=== PATIENT | male | born 1960 | race Caucasian/White ===

== ENCOUNTER 2021-08-19 06:37 | Outpatient (REF) | payer BC, SELFPAY ==
[2021-08-19 11:11] LABS: MANUAL DIFF FLAG NO
[2021-08-19 11:19] LABS: Basophils Percent Auto 0.6 % (0-2); Eosinophils Absolute Auto 0.2 X10*3/uL (0.0-0.4); Eosinophils Percent Auto 2.9 % (0-4); Hematocrit 49.2 % (42-52); Hemoglobin 16.7 g/dl (14.0-18.0); Imm Gran Abs Auto 0.02 X10*3/uL (0.00-0.03); Imm Gran Pct Auto 0.3 % (0.0-0.4); Lymphocytes Absolute Auto 1.7 X10*3/uL (1.2-4.9); Lymphocytes Percent Auto 24.8 % (20-40); Mean Corpuscular HGB Conc 33.9 g/dl (31.0-36.0); Mean Corpuscular Hemoglobin 32.8 pg (27.0-33.0); Mean Corpuscular Volume 96.7 fL (80-98); Mean Platelet Volume 8.9 fL (9.4-12.4); Monocytes Absolute Auto 0.5 X10*3/uL (0.1-1.2); Neutrophils Absolute Auto 4.2 X10*3/uL (2.0-8.3); Neutrophils Percent Auto 63.4 % (45-73); Platelet Count 279 X10*3/uL (160-400); Red Blood Count 5.09 X10*6/uL (4.60-5.80); Red Cell Distribution Width 12.9 % (11.0-16.0); White Blood Count 6.7 X10*3/uL (4.8-10.8)
[2021-08-19 11:30] LABS: Alanine Aminotransferase 20 U/L (0-40); Albumin Level 4.4 g/dL (3.5-5.0); Alkaline Phosphatase 49 U/L (39-117); Anion Gap 12 (12-20); Aspartate Amino Transferase 17 U/L (5-37); Bilirubin Total 0.8 mg/dL (0.0-1.0); Blood Urea Nitrogen 12 mg/dL (9-16); Calcium 9.8 mg/dL (8.4-10.2); Carbon Dioxide 28 mmol/L (22-29); Chloride 105 mmol/L (96-108); Cholesterol 174 mg/dL; Estimated Glomerular Filt Rate > 60; Glucose Random 101 mg/dL (60-115); HDL Cholesterol 42 mg/dL; LDL Cholesterol Calculated 111 mg/dl; Sodium 141 mmol/L (135-145); Triglycerides 109 mg/dL
[2021-08-19 11:53] LABS: Free T4 (Free Thyroxine) 1.15 ng/dL (0.71-1.85); Prostate Specific Antigen Scr 0.75 ng/mL (<0.05-4.0); Thyroid Stimulating Hormone 0.67 uIU/mL (0.32-4.0)
[2021-08-21 09:07] LABS: Folate 16.7 ng/mL (> or = 4.0); Vitamin B12 757 pg/mL (200-900)
== END 2021-08-19 06:38 | disposition home or self-care (01) ==
LOC: HO.HMGCLDS 06:37
PROVIDERS: PCP Internal Medicine; Visit Provider Internal Medicine
DX: Z12.5 Encounter for screening for malignant neoplasm of prostate (principal); E78.00 Pure hypercholesterolemia, unspecified; K22.70 Barrett's esophagus without dysplasia
CPT/HCPCS: 36415; 80053; 80061; 82607; 82746; 84153; 84439; 84443; 85025

== ENCOUNTER 2021-12-25 15:26 | Outpatient (REF) | payer BC, SELFPAY ==
--- NOTE | ~2021-12-25 | US_ITS ---
EXAMINATION: US RETROPERITONEAL COMPLETE (RENAL) CLINICAL INFORMATION: Hematuria, unspecified. COMPARISON: CT chest screening 02/10/2018. CT abdomen with contrast 12/21/2011. TECHNIQUE: Real-time imaging of the kidneys and bladder. FINDINGS: RIGHT KIDNEY: 12.1 x 7.8 x 6.2 cm (SAG x AP x TRV). The kidney is normal in size, contour, and echogenicity. Renal cortical thickness is normal. No renal calculi or hydronephrosis. There is anechoic cyst mid pole/lower pole measuring 3.7 x 4.7 x 5.9 cm. LEFT KIDNEY: 12.9 x 5.5 x 4.7 cm (SAG x AP x TRV). The kidney is normal in size, contour, and echogenicity. Renal cortical thickness is normal. No renal calculi or hydronephrosis. There is anechoic cyst in lower pole measuring 2.3 x 1.8 x 1.6 cm. BLADDER: Well distended and normal. Bilateral ureteral jets are demonstrated. Prevoid bladder volume is 135 mL. There is no postvoid residual. ADDITIONAL FINDINGS: The prostate is enlarged with a volume of 33.6 mL. US/US retroperitoneal comp IMPRESSION: Bilateral renal cysts. No echogenic renal calculi or hydronephrosis. The bladder is unremarkable with normal bilateral ureteral jets seen.
== END 2021-12-25 15:27 | disposition home or self-care (01) ==
LOC: HO.HMGCX 15:26
PROVIDERS: PCP Internal Medicine; Visit Provider Internal Medicine
DX: R31.9 Hematuria, unspecified (principal)
CPT/HCPCS: 76770

== ENCOUNTER 2022-10-29 07:55 | Outpatient (REF) | payer OTHER, SELFPAY ==
[2022-10-29 11:24] LABS: MANUAL DIFF FLAG NO
[2022-10-29 11:28] LABS: Urine Cytology See Pathology rpt
[2022-10-29 11:37] LABS: Appearance Urine Clear; Color Urine Yellow; Glucose Urine UA Negative (Negative); Leukocyte Esterase Urine Negative (Negative); Nitrite Urine Negative (Negative); PH 6.5 (5.0-9.0); Urine Blood Trace (Negative); Urine Ketones Negative (Negative); Urine Protein Negative (Neg-Trace)
[2022-10-29 11:38] LABS: Basophils Absolute Auto 0.1 X10*3/uL (0.0-0.2); Basophils Percent Auto 0.7 % (0-2); Eosinophils Absolute Auto 0.3 X10*3/uL (0.0-0.4); Eosinophils Percent Auto 3.6 % (0-4); Hemoglobin 15.9 g/dl (14.0-18.0); Imm Gran Abs Auto 0.04 X10*3/uL (0.00-0.03); Imm Gran Pct Auto 0.5 % (0.0-0.4); Lymphocytes Absolute Auto 2.1 X10*3/uL (1.2-4.9); Lymphocytes Percent Auto 28.2 % (20-40); Mean Corpuscular HGB Conc 33.8 g/dl (31.0-36.0); Mean Corpuscular Hemoglobin 31.7 pg (27.0-33.0); Mean Corpuscular Volume 93.8 fL (80.0-98.0); Mean Platelet Volume 8.5 fL (9.4-12.4); Monocytes Absolute Auto 0.6 X10*3/uL (0.1-1.2); Monocytes Percent Auto 8.2 % (2-11); Neutrophils Absolute Auto 4.5 x10*3/uL (2.0-8.3); Neutrophils Percent Auto 58.8 % (45-73); Platelet Count 256 X10*3/uL (160-400); Red Blood Count 5.01 X10*6/uL (4.60-5.80); UMIC TRIGGER UA YES; White Blood Count 7.6 X10*3/uL (4.8-10.8)
[2022-10-29 11:41] LABS: Bacteria Urine None Seen (None Seen); Hyaline Casts Urine 0-2 /LPF (0-2); RBC Urine 0-2 /HPF (0-2); Squamous Epithelial Cell Urine 0-2 /HPF (0-2); WBC Urine 0-5 /HPF (0-5)
[2022-10-29 11:47] LABS: Estimated Average Glucose 105 mg/dL; Hemoglobin A1c % 5.3 %
[2022-10-29 12:09] LABS: Alanine Aminotransferase 34 U/L (0-40); Albumin Level 4.3 g/dL (3.5-5.0); Alkaline Phosphatase 51 U/L (39-117); Anion Gap 11 (12-20); Aspartate Amino Transferase 21 U/L (5-37); Bilirubin Total 0.6 mg/dL (0.0-1.0); Blood Urea Nitrogen 12 mg/dL (9-16); Calcium 9.6 mg/dL (8.4-10.2); Carbon Dioxide 29 mmol/L (22-29); Chloride 105 mmol/L (96-108); Cholesterol 215 mg/dL; Estimated Glomerular Filt Rate > 60; Free T4 (Free Thyroxine) 1.09 ng/dL (0.71-1.85); Glucose Random 93 mg/dL (60-115); HDL Cholesterol 42 mg/dL; LDL Cholesterol Calculated 142 mg/dl; Potassium 4.1 mmol/L (3.3-5.1); Prostate Specific Antigen Scr 1.32 ng/mL (<0.05-4.0); Sodium 141 mmol/L (135-145); Thyroid Stimulating Hormone 1.16 uIU/mL (0.32-4.0); Total Protein 7.1 g/dL (6.5-8.0); Triglycerides 157 mg/dL
[2022-10-29 12:37] LABS: Folate > 20.0 ng/mL (> or = 4.0); Vitamin B12 1003 pg/mL (200-900)
== END 2022-10-29 07:56 | disposition home or self-care (01) ==
LOC: HO.HMGCLDS 07:55
PROVIDERS: PCP Internal Medicine; Visit Provider Internal Medicine
DX: Z12.5 Encounter for screening for malignant neoplasm of prostate (principal); R73.02 Impaired glucose tolerance (oral); R31.9 Hematuria, unspecified; E78.00 Pure hypercholesterolemia, unspecified
CPT/HCPCS: 36415; 80053; 80061; 81001; 82607; 82746; 83036; 84153; 84439; 84443; 85025; 88112

== ENCOUNTER 2023-11-29 15:59 | Outpatient (AMB) | payer OTHER, SELFPAY ==
--- NOTE | 2023-11-29 16:00 | MHC.PC.OV ---
Vital Signs 11/29/23 16:01 Height 5 ft 11 in Weight 247 lb 0.6 oz BMI 34.5 BP 124/80 Blood Pressure Location Lt brachial Position Sitting Pulse 73 Pulse Source Pulse Oximeter Pulse Oximetry (%) 99 Oxygen Delivery Method Room Air Intake Visit Reasons: Annual PE Coil Wrapper Required: No Allergies No Known Allergies Allergy (Verified 11/29/23 16:06) Medication List - Last Reconciled 11/29/23 by Parish Son MD cholecalciferol (vitamin D3) 50 mcg PO DAILY cyanocobalamin (vitamin B-12) 1,000 mcg PO DAILY folic acid 1 mg PO DAILY omeprazole 40 mg PO BID simvastatin 10 mg PO BEDTIME 90 days Tobacco use date assessed: 11/29/23 Dental Screening Dental Screen Date: 11/29/23 Did you have a dental visit in the last 12 months?: No Did you have a dental problem in the last 6 months where you did not have access to dental care?: No HPI Annual PE HPI Details 63-year-old obese male smoker with a history of obstructive sleep apnea hypercholesterolemia Barretts esophagus coming in for physical exam last seen in May 2022. Patient's colonoscopy is due this year March 2019 last 1. [facility] Medical History (Updated 11/29/23 @ 16:37 by Parish Son MD) Impaired glucose tolerance Compression fracture of T6 vertebra Pulmonary nodule GERD (gastroesophageal reflux disease) Cervical compression fracture Lumbar disc herniation Obstructive sleep apnea Obesity (BMI 30-39.9) Hypercholesterolemia Vitamin D deficiency Tobacco abuse Tubular adenoma of colon Conley's esophagus Renal calculi Surgical History (Updated 11/29/23 @ 16:37 by Parish Son MD) H/O knee surgery Ventral hernia Social History (Updated 11/29/23 @ 16:37 by Parish Son MD) Housing: House Alcohol intake: current Comment: once a month 2-3beers Patient Tobacco Use Status: Current everyday Tobacco user Tobacco use type: Cigarette Cigarette Packs Per Day: 1 Years Smoked: smoking 15 years old e-Cigarette/Vaping Use: Never Used Second Hand Smoke Exposure: No Current occupational status: employed Cognitive needs: No Hearing needs: No Vision needs: Yes Questionnaire PHQ-9 Over the last 2 weeks, how often have you been bothered by any of the following problems? 1. Little interest or pleasure in doing things: not at all 2. Feeling down, depressed, or hopeless: several days 3. Trouble falling or staying asleep, or sleeping too much: not at all 4. Feeling tired or having little energy: not at all 5. Poor appetite or overeating: not at all 6. Feeling bad about yourself - or that you are a failure or have let yourself or your family down: not at all 7. Trouble concentrating on things, such as reading the newspaper or watching television: not at all 8. Moving or speaking so slowly that other people could have noticed. Or the opposite - being so fidgety or restless that you have been moving around a lot more than usual: not at all 9. Thoughts that you would be better off or of hurting yourself in some way: not at all Total score: 1 Depression Screening Interpretation: Negative Depression Screening Done: Yes Source: Developed by Drs. Mj Hansen, Eliane Santos, Paramjit Winston and colleagues, with an educational danielle from [employer]. Thrive Questionnaire Date Thrive assessed: 11/29/23 I am a: Patient What is your living situation today?: I have a steady place to live Within the past 12 months, did the food you bought not last and you didn't have the money to get more?: Never true Within the past 12 months, did you worry whether your food would run out before you got money to buy more?: Never true Do you have trouble paying for medicines?: No Do you have trouble getting transportation to medical appointments?: No Do you have trouble paying your heating and electricity bill?: No Do you have trouble taking care of your child, family member or friend?: No Do you have trouble with day-to-day activities such as bathing, preparing meals, shopping, managing finances, etc.?: No Are you currently unemployed and looking for a job?: No Are you interested in more education?: No AUDIT C Alcohol Use Questionnaire (AUDIT-C) 1. How often do you have a drink containing alcohol?: Monthly or less 2. How many drinks containing alcohol do you have on a typical day when you are drinking?: 1 or 2 3. How often do you have six or more drinks on one occasion?: Never Total Score: 1 JAZ-7 AMB Questionnaire JAZ-7 Date JAZ - 7 assessed: 11/29/23 Feeling nervous, anxious, or on edge: 1 = Several days Not being able to stop or control worryin = Several days Worrying too much about different things: 0 = Not at all Trouble relaxin = Not at all Being so restless that it is hard to sit still: 0 = Not at all Becoming easily annoyed or irritable: 0 = Not at all Feeling afraid as if something awful might happen: 0 = Not at all Total JAZ-7 score (0-4 normal; 5-9 mild; 10-14 moderate; 15-21 severe): 2 Source: Developed by Drs. Mj Hansen, Eliane Santos, Paramjit Winston and colleagues, with an educational danielle from [employer]. Review of Systems Const Denies poor appetite and Denies weakness Eyes Denies no additional complaints ENT Reports Normal hearing present, Denies dizziness, Denies nasal congestion, Denies tinnitus and Denies sore throat Card Denies chest pain, Denies syncope, Denies rapid heart rate and Denies dyspnea Resp Denies cough and Denies dyspnea GI Denies change in stool character, Reports constipation, Denies diarrhea, Denies nausea and Denies vomiting Denies dysuria and Denies urinary frequency Neuro Reports Normal hearing present, Denies confusion, Denies dizziness, Denies syncope and Denies weakness Psych Denies confusion Physical exam (Primary Care) Vital Signs: Last Vital Signs Pulse 73 11/29/23 16:01 BP 124/80 11/29/23 16:01 Pulse Ox 99 11/29/23 16:01 Oxygen Delivery Method Room Air 11/29/23 16:01 BMI result Body Mass Index 34.5 Tobacco/Smoking Status: Tobacco use Status Tobacco use date assessed 11/29/23 11/29/23 16:02 Patient Tobacco Use Status Current everyday Tobacco 11/29/23 16:37 Tobacco use type Cigarette 11/29/23 16:37 e-Cigarette/Vaping Use Never Used 11/29/23 16:37 PHQ-9: PHQ-9 Score PHQ-9: Total score 1 11/29/23 16:31 Depression Screening Interpretation: Negative Thrive Assessment: Date of Thrive Assessment Date Thrive assessed 11/29/23 11/29/23 16:02 Const General: No confusion Orientation/consciousness: No confusion HENMT Head: Yes normocephalic Ears: external ears normal and TM's normal bilaterally Face and sinus: Yes normal facial exam Mouth: moist mucous membranes Throat: Yes tonsils normal Eyes Conjunctivae: conjunctivae normal Pupils: Equal, round and reactive pupils present and Pupil accommodation reflex normal Direct Ophthalmoscopy: normal light reflex Neck Neck: No lymphadenopathy Thyroid: Thyroid normal Chest Chest palpation & inspection: normal inspection of the chest Resp Effort & Inspection: normal respiratory effort and no audible wheezes Auscultation: clear to auscultation bilaterally, no crackles, no wheezes and lung sounds not diminished Cardio Rate: regular rate Rhythm: regular rhythm Peripheral pulses: radial pulses present and dorsalis pedis present GI Other: colon test this year Palpation (GI): no masses Auscultation: normal bowel sounds and normoactive bowel sounds Rectal Exam - Male: Yes deferred Other: decline Skin General skin exam: no rashes or lesions noted Rashes: no rashes Neuro General: No confusion Cranial nerves: Yes Equal, round and reactive pupils present and Yes Normal hearing present Cognition (Neuro): normal cognition Gait exam (Neuro): Normal gait present Motor exam (neuro): 5/5 motor strength present throughout Deep tendon reflexes (DTR's): Right brachioradialis reflex intensity grade: 2+, Left brachioradialis reflex intensity grade: 2+, Right patellar reflex intensity grade: 2+ and Left patellar reflex intensity grade: 2+ Extrem General: No edema Office Procedures Flu Questionnaire Does the patient have a severe egg allergy?: No Does the patient have severe life threatening allergies?: No Does the patient have a fever or illness today?: No Has the patient ever had Guillain-[place] Syndrome?: No Has the patient ever had any past reaction to a flu shot?: No Immunizations flu vacc [id number] 6mos up(PF) 60 mcg(15 mcgx4)/0.5 mL IM syringe Performing Provider: Parish Son MD Performing Location: [facility] Administered by: BOONE Steward on 11/29/23 16:58 Dose Route Admin Location Dispensed Lot Number Expiration Date NDC Sewer Inspector 0.5 mL IM Left Deltoid 0.5 mL [id number] 05/24/24 [id number] Yext VIS Given Date VIS Provided VIS Publication Date 11/29/23 Single Vaccine 21 Eligibility Eligibility Date Funding Source Not [facility] Eligible 11/29/23 Private Assessment and Plan Assessment & Plan (1) Annual physical exam: Code(s): Z00.00 - Encounter for general adult medical examination without abnormal findings (2) Obesity (BMI 30-39.9): Code(s): E66.9 - Obesity, unspecified Plan: Diet and exercise (3) Tobacco abuse: Code(s): Z72.0 - Tobacco use Plan: Strongly advised to stop smoking! (4) Conley's esophagus: Code(s): K22.70 - Conley's esophagus without dysplasia Qualifiers: Conley's esophagus type: without dysplasia Qualified Code(s): K22.70 - Conley's esophagus without dysplasia Plan: Advised to eat healthy,Avoid the foods that causes that usually spicy foods, tomato products, juices, coffee, soda and foods that your sensitive to. After eating do not lie down, allow 3-4 hours before in lie down. And keep the head of bed above 30 degrees to avoid the acid from going up. (5) Hypercholesterolemia: Code(s): E78.00 - Pure hypercholesterolemia, unspecified Plan: Avoid fried foods, chicken skin, eggs, butter margarine, pastries and meat. Be it pork or beef they have a lot of cholesterol LDL goal of less than 130 and triglyceride of less than 150. Patient on simvastatin 10 mg at bedtime (6) Impaired glucose tolerance: Code(s): R73.02 - Impaired glucose tolerance (oral) Plan: Decrease the amount of carbohydrate intake, pasta, bread, rice and potatoes are all sugar and that is aside from all the sweet stuff, remember that fruits are good but they are Sweet also. (7) Colon cancer screening: Comment: Two thousand nineteen 5 years Code(s): Z12.11 - Encounter for screening for malignant neoplasm of colon Plan: Patient is reminded about the colonoscopy. Orders: Orders Complete Blood Count Auto Diff Today E78.00 - Pure hypercholesterolemia, unspecified Thyroid Stimulating Hormone Today E78.00 - Pure hypercholesterolemia, unspecified Lipid Panel Today E78.00 - Pure hypercholesterolemia, unspecified Hemoglobin A1c Today R73.02 - Impaired glucose tolerance (oral) Comprehensive Met. Panel Today E78.00 - Pure hypercholesterolemia, unspecified Free T4 (Free Thyroxine) Today E78.00 - Pure hypercholesterolemia, unspecified Prostate Specific Antigen Scr Today E78.00 - Pure hypercholesterolemia, unspecified Vitamin B12 and Folate Today E78.00 - Pure hypercholesterolemia, unspecified Influenza [id number] Immunization Today Z23 - Encounter for immunization Referrals Thoracic Surgery Referral Z72.0 - Tobacco use Medications: New omeprazole 40 mg PO BID 180 caps 3RF K22.70 - Conley's esophagus without dysplasia Coding Level of Care Code Est Pt Prev Care 40-64y([id number]) Diagnoses Annual physical exam Z00.00 Obesity (BMI 30-39.9) E66.9 Tobacco abuse Z72.0 Conley's esophagus without dysplasia K22.70 Conley's esophagus type: without dysplasia Hypercholesterolemia E78.00 Impaired glucose tolerance R73.02 Colon cancer screening Z12.11
[2023-11-29 16:01] VITALS: BP 124/80; PULSE 73; O2SAT 99; BMI 34.5
== END 2023-11-29 17:02 | disposition home or self-care (01) ==
LOC: HO.HMGH 15:59
PROVIDERS: PCP Internal Medicine; Visit Provider Internal Medicine
DX: Z00.00 Encounter for general adult medical examination without abnormal findings (principal); E66.9 Obesity, unspecified; Z68.34 Body mass index [BMI] 34.0-34.9, adult; Z23 Encounter for immunization; Z72.0 Tobacco use; K22.70 Barrett's esophagus without dysplasia; E78.00 Pure hypercholesterolemia, unspecified; R73.02 Impaired glucose tolerance (oral); Z12.11 Encounter for screening for malignant neoplasm of colon
CPT/HCPCS: 90471; 90686; 99396

== ENCOUNTER 2024-01-31 08:49 | Outpatient (REF) | payer OTHER, SELFPAY ==
--- NOTE | ~2024-01-31 | CT_ITS ---
EXAMINATION: CT CHEST SCREENING CLINICAL INFORMATION: Nicotine dependence current smoker at 1 pack per day with 50 pack-year history. COMPARISON: CT chest 02/10/2018. TECHNIQUE: Multidetector volumetric CT imaging of the chest is performed without contrast using low-dose technique. Additional 2D coronal and sagittal reformatted images and axial 3D maximum intensity projection (MIP) images are generated on the CT workstation. This CT examination was performed using dose optimization techniques as appropriate, variously including the following: *Automated exposure control *Adjustment of mA and/or kV according to patient size (this includes techniques or standardized protocols for targeted exams where dose is matched to indication/reason for exam; i.e. extremities or head) *Use of iterative reconstruction technique DLP: 74 mGy-cm FINDINGS: LUNGS: Mild emphysematous changes are present in the lungs. The following pulmonary nodules are present, 2 of which have increased in size slightly: 6 mm right upper lobe nodule previously 4 mm on 02/10/2018 (5:134 compare prior 4:98) 2 mm left lower lobe lateral nodule unchanged (5:255 compare prior 4:215) 3 mm right middle lobe nodule previously 2 mm (5:310 compare prior 4:273) 5 mm left lower lobe nodule unchanged (5:353 compare prior 4:294) 3 mm right lower lobe subpleural nodule unchanged (5:368 compare prior 4:303) 2 mm right lower lobe nodule unchanged (5:389 compare prior 4:328) The lungs are otherwise clear with no evidence of inflammation or nodules. MEDIASTINUM: The mediastinum is normal. CORONARY ARTERY CALCIFICATION: Moderate. PLEURA: There is no pleural effusion. No pleural mass or thickening. AXILLA: No lymphadenopathy. UPPER ABDOMEN: Unremarkable OSSEOUS STRUCTURES: Unremarkable. CT/CT lung screening IMPRESSION: Pulmonary nodules, the largest of which is increased in size from 4 to 6 mm since 02/10/2018 over the prior 6 years. I suspect that this is benign but based upon lung RADS criteria, as this is less than 8 mm but growing (although over a 6 year period), short-interval followup is recommended. ASSESSMENT: Lung-RADS category 4A: Suspicious RECOMMENDATION: Short-interval 3-month follow-up low-dose CT chest.
== END 2024-01-31 08:50 | disposition home or self-care (01) ==
LOC: HO.CT 08:49
PROVIDERS: PCP Internal Medicine; Visit Provider Nurse Practitioner Family
DX: Z12.2 Encounter for screening for malignant neoplasm of respiratory organs (principal); F17.210 Nicotine dependence, cigarettes, uncomplicated
CPT/HCPCS: 71271; G0296

== ENCOUNTER 2024-01-31 08:54 | Outpatient (AMB) | payer OTHER, SELFPAY ==
--- NOTE | 2024-01-31 09:03 | A.OFFVIS_ITS ---
Intake Intake Visit Reasons: LDCT SD Allergies No Known Allergies Allergy (Verified 11/29/23 16:06) HPI HPI Comments History of Present Illness Details Samy is a pleasant 64 year old male, current 1ppd smoker with a 65 PYH. Patient has been smoking since age 15 for 49 years at [facility]. Denies marijuana use. 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 Admits second hand smoke exposure. Denies known family history of lung cancer. Denies personal history of cancers. Denies chest CT in last year. Prior screener 2018 RADS 2 with multiple bilateral pulmonary nodules, <5mm. Denies recent travel outside the [place]. Denies testing positive for COVID. Admits receiving COVID Vaccine x 2. Denies fever, chills, chest pain, new cough, hemoptysis or unintentional weight loss. Lung Cancer Screening Questionnaire reviewed with patient by provider. Shared Decision Making Completed. Discussed in detail with patient, the risk versus benefit of LDCT screening. Patient in agreement of proceeding with scan. [facility] Medical History (Updated 01/07/24 @ 13:22 by Milvia Scott NP) Impaired glucose tolerance Compression fracture of T6 vertebra Pulmonary nodule GERD (gastroesophageal reflux disease) Cervical compression fracture Lumbar disc herniation Obstructive sleep apnea Obesity (BMI 30-39.9) Hypercholesterolemia Vitamin D deficiency Tobacco abuse Tubular adenoma of colon Conley's esophagus Renal calculi Surgical History (Updated 11/29/23 @ 16:37 by Parish Son MD) H/O knee surgery Ventral hernia Social History (Updated 11/29/23 @ 16:37 by Parish Son MD) Housing: House Alcohol intake: current Comment: once a month 2-3beers Patient Tobacco Use Status: Current everyday Tobacco user Tobacco use type: Cigarette Cigarette Packs Per Day: 1 Years Smoked: smoking 15 years old e-Cigarette/Vaping Use: Never Used Second Hand Smoke Exposure: No Current occupational status: employed Cognitive needs: No Hearing needs: No Vision needs: Yes Assessment & Plan Assessment & Plan (1) Nicotine dependence, cigarettes, uncomplicated: Code(s): F17.210 - Nicotine dependence, cigarettes, uncomplicated Plan Shared decision-making visit completed today in office. This patient meets criteria for LDCT for lung cancer screening purposes and is asymptomatic. Offered smoking cessation. Patient has been scheduled for a low dose chest CT for screening purposes at [facility]. We discussed how the results will be obtained depending on CT findings. RADS 1 and RADS 2 will receive a letter with results and will follow up for annual LDCT. Patient informed they will be contacted at later date to schedule upcoming LDCT scan. RADS 3 and RADS 4 will receive a telephone call, or an office visit after reviewing case at our Lung Cancer Conference to determine when the next LDCT will be scheduled or further interventions that may be needed. Discussed importance of screening program and compliance with yearly LDCT scan as scheduled. Risks, benefits, and alternatives were discussed in detail and patient agrees to proceed. Risks discussed include but are not limited to: radiation exposure and possibility of additional intervention for benign disease. Benefits include detection of lung cancer at an early stage. A copy of today's visit and LDCT results will be sent to patient's PCP. Incidental findings on LDCT are PCP's responsibility. If there are incidental findings, our office will ensure that PCP office is aware of these findings. All questions were answered and patient is in agreement of plan. Coding Level of Care Code Lung Cancer Screening G0296 Diagnoses Nicotine dependence, cigarettes, uncomplicated F17.210
== END 2024-01-31 09:23 | disposition home or self-care (01) ==
PROVIDERS: PCP Internal Medicine; Visit Provider Nurse Practitioner Family
DX: F17.210 Nicotine dependence, cigarettes, uncomplicated (principal)
CPT/HCPCS: G0296

== ENCOUNTER 2024-10-07 09:20 | Day surgery (SDC) | payer OTHER, SELFPAY ==
[2024-10-05 10:12] VITALS: BMI 34.9
--- NOTE | 2024-10-06 09:26 | HO.ANESPROP2 ---
Documented by User: Tran Borrero NP 10/06/24 09:26 HPI - Anesthesia Eval Consult details Narrative: 64yo M for Upper Endoscopy and Colonoscopy [facility] Active Problems Active Problems: All Active Problems Multiple pulmonary nodules (Acute) Hematuria (Acute) Hypercholesterolemia (Acute) Impaired glucose tolerance (Acute) Obstructive sleep apnea (Acute) Nicotine dependence, cigarettes, uncomplicated (Acute) Conley's esophagus (Acute) GERD (gastroesophageal reflux disease) (Acute) Tubular adenoma of colon (Acute) Obesity (BMI 30-39.9) (Acute) Past Medical History Medical History (Updated 10/07/24 @ 10:26 by Kanchan Mark, EBONY) Nicotine dependence, cigarettes, uncomplicated Impaired glucose tolerance Compression fracture of T6 vertebra Pulmonary nodule GERD (gastroesophageal reflux disease) Cervical compression fracture Lumbar disc herniation Obstructive sleep apnea Obesity (BMI 30-39.9) Hypercholesterolemia Vitamin D deficiency Tubular adenoma of colon Conley's esophagus Renal calculi Surgical History Surgical History (Updated 06/15/24 @ 16:10 by Ev Farias PA-C) History of right knee surgery History of esophagogastroduodenoscopy (EGD) History of colonoscopy History of ventral hernia repair Social History Social History (Updated 11/29/23 @ 16:37 by Parish Son MD) Housing: House Alcohol intake: current Comment: once a month 2-3beers Patient Tobacco Use Status: Current everyday Tobacco user Tobacco use type: Cigarette Cigarette Packs Per Day: 1 Cigarettes Per Day: 20.0 Years Smoked: smoking 15 years old e-Cigarette/Vaping Use: Never Used Second Hand Smoke Exposure: No Use of substances other than those prescribed or required for medical reasons: No Are you DNR?: No Advance Directives: No Advance Directives Information Provided: Yes Recently lost weight without trying: No Current occupational status: employed Cognitive needs: No Hearing needs: No Vision needs: Yes Meds Allergies Allergy/AdvReac Type Severity Reaction Status Date / Time No Known Allergies Allergy Verified 10/07/24 10:27 Home Medications ?Medication ?Instructions ?Recorded ?Confirmed ?Last Taken ?Type cholecalciferol (vitamin D3) 50 50 mcg PO DAILY 11/07/20 10/05/24 Unknown History mcg (2,000 unit) capsule cyanocobalamin (vitamin B-12) 1,000 mcg PO DAILY 11/07/20 10/05/24 Unknown History 1,000 mcg capsule folic acid 1 mg tablet 1 mg PO DAILY 11/07/20 10/05/24 Unknown History Probiotic PO DAILY 10/07/24 Unknown History Exam Height,Weight and Vital Signs: Height 5 ft 11 in Weight 113.398 kg Assessment and Plan Assessment Anesthesia Assessment: Chart Reviewed Documented by User: Emily Almodovar MD 10/07/24 10:41 [facility] Past Medical History Medical History (Updated 10/07/24 @ 10:26 by Kanchan Mark RN) Nicotine dependence, cigarettes, uncomplicated Impaired glucose tolerance Compression fracture of T6 vertebra Pulmonary nodule GERD (gastroesophageal reflux disease) Cervical compression fracture Lumbar disc herniation Obstructive sleep apnea Obesity (BMI 30-39.9) Hypercholesterolemia Vitamin D deficiency Tubular adenoma of colon Conley's esophagus Renal calculi Family History Family history of problems with anesthesia: No Surgical History Surgical History (Updated 06/15/24 @ 16:10 by Ev Farias PA-C) History of right knee surgery History of esophagogastroduodenoscopy (EGD) History of colonoscopy History of ventral hernia repair History of Problems with Anesthesia: No Social History Social History (Updated 11/29/23 @ 16:37 by Parish Son MD) Housing: House Alcohol intake: current Comment: once a month 2-3beers Patient Tobacco Use Status: Current everyday Tobacco user Tobacco use type: Cigarette Cigarette Packs Per Day: 1 Cigarettes Per Day: 20.0 Years Smoked: smoking 15 years old e-Cigarette/Vaping Use: Never Used Second Hand Smoke Exposure: No Use of substances other than those prescribed or required for medical reasons: No Are you DNR?: No Advance Directives: No Advance Directives Information Provided: Yes Recently lost weight without trying: No Current occupational status: employed Cognitive needs: No Hearing needs: No Vision needs: Yes Meds Allergies Allergy/AdvReac Type Severity Reaction Status Date / Time No Known Allergies Allergy Verified 10/07/24 10:27 Home Medications ?Medication ?Instructions ?Recorded ?Confirmed ?Last Taken ?Type cholecalciferol (vitamin D3) 50 50 mcg PO DAILY 11/07/20 10/05/24 Unknown History mcg (2,000 unit) capsule cyanocobalamin (vitamin B-12) 1,000 mcg PO DAILY 11/07/20 10/05/24 Unknown History 1,000 mcg capsule folic acid 1 mg tablet 1 mg PO DAILY 11/07/20 10/05/24 Unknown History Probiotic PO DAILY 10/07/24 Unknown History Exam Airway Mallampati Class: II TM Dist: >3cm Neck ROM: Full Denture: Upper Heart: rrr Lungs: cta Assessment and Plan Assessment Anesthesia Assessment: Anesthesia Plan Discussed Final Anesthetic Review Family History of Problems with Anesthesia: No History of Problems with Anesthesia: No NPO: Yes ASA Class: II Final Preanesthetic Review: No Changes in Pt Med Stat, Meds/Allgs Chart Reviewed and Consent Obtained/Reviewed Patient Risk: Low Procedure Risk: Intermediate Anesthetic Plan Anesthetic Plan: MAC: Disposition: Standard PACU
[2024-10-07 10:29] VITALS: BMI 33.7
[2024-10-07 10:35] VITALS: BP 144/91; PULSE 75; RESP 16; TEMP 36.7; O2SAT 95
[2024-10-07] MEDS: Lactated Ringers 1,000 ML 100 ML IVCONT (10:42)
[2024-10-07 12:17] VITALS: BP 123/69; PULSE 67; RESP 16; TEMP 36.6; O2SAT 98
--- NOTE | 2024-10-07 12:26 | PM.OP ---
Brief Operative Note Date of Service: 10/07/24 Pre-op diagnosis: Conley's, screening Post-op diagnosis: other (Hiatal hernia, Conley's, Colon polyp) Procedure: EGD with biopsies, Colonoscopy to the cecum and TI with hot snare polypectomy and placement of 2 Ultra Resolution clips Surgeon: Mj Mendoza MD Anesthesia: MAC Was an [employer] Ic Layout Designer used for this Procedure?: No Estimated blood loss (mL): 2.0 Pathology: other (A. Polyp at 30cm B. Esophagus 34-35cm) Condition: stable Disposition: PACU
[2024-10-07 12:32] VITALS: BP 127/61; PULSE 63; RESP 20; TEMP 36.4; O2SAT 97
--- NOTE | 2024-10-07 13:07 | OP_ITS ---
DATE OF SERVICE: 10/07/2024 SURGEON: Mj Mendoza MD INDICATIONS: The patient presents for followup of colorectal cancer screening, personal history of tubular adenomas of the colon, history of gastroesophageal reflux, and Conley esophagus. Full consent has been obtained from him for this, including risks of bleeding and perforation. PREOPERATIVE DIAGNOSIS: POSTOPERATIVE DIAGNOSIS: PROCEDURE PERFORMED: Colonoscopy to the cecum with hot snare polypectomy and placement of 2 ultra resolution clips, and esophagogastroduodenoscopy with biopsies. ESTIMATED BLOOD LOSS: COMPLICATIONS: ANESTHESIA: Monitored anesthesia care. ASSISTANTS: SPECIMENS: PREOPERATIVE DIAGNOSES: Colorectal cancer screening, personal history of tubular adenomas of the colon, gastroesophageal reflux, and Ocnley esophagus. POSTOPERATIVE DIAGNOSES: Colorectal cancer screening, personal history of tubular adenomas of the colon, gastroesophageal reflux, and Conley esophagus, colon polyp, diverticulosis, internal hemorrhoids, large hiatal hernia, gastroesophageal reflux, Conley esophagus. DESCRIPTION OF PROCEDURE: The patient was placed in the left lateral decubitus position. The digital rectal exam revealed no abnormalities. The [employer] video pediatric colonoscope was entered into the rectum advanced easily to the cecum. Once in the cecum, I did identify normal-appearing cecal pouch with appendiceal orifice and a normal-appearing ileocecal valve. The entire cecum and ileocecal valve appeared normal. The terminal ileum was cannulated and appeared normal. Scope was withdrawn back in the colon. The entire cecum and ileocecal valve appeared normal. The scope was slowly withdrawn assessing all mucosal surfaces carefully. Preparation was excellent. There was a mild amount of diverticulosis in the ascending colon. There was a moderate amount of diverticulosis in the sigmoid colon. At 30 cm was a large, approximately 1.5 cm polyp on a short stalk, which was removed by hot snare polypectomy. The polypectomy site had some initial oozing, which was treated with the tip of the snare with cauterization and good hemostasis. At that point, the polyp was retrieved with a retrieval net and brought out of the patient. The scope was then reinserted back into the rectum and to the polypectomy site. This appeared clean, without any sign of residual polyp nor bleeding. I did place 1 ultra resolution clip, which deployed well on just a portion of the polypectomy site with good deployment and good hemostasis. I then placed a 2nd ultra resolution clip onto the entire polypectomy site with good deployment and good hemostasis. The scope was then withdrawn, and the remainder of the colon was carefully inspected and no further polyps were noted. There was no evidence of any colitis nor angiodysplasia. In the rectum, scope was retroflexed visualizing internal hemorrhoids, but no other pathology. The scope was straightened and withdrawn from the patient. He was turned around for the upper endoscopy. The Olympus video gastroscope was passed in the posterior oropharynx and upper esophagus under direct vision. The scope was passed slowly into the distal esophagus. The gastroesophageal junction appeared at 35 cm. Extending from this to 34 cm were areas of some Cnoley's mucosa as well as some friability and edema. There was no ulceration, mass, nor stricture. The scope entered the stomach there was a large hiatal hernia. There were some benign hyperplastic appearing gastric polyps within the hiatal hernia. The scope was advanced to the pylorus, and the duodenum was cannulated to the descending portion. The duodenum including the bulb appeared normal without mass or ulceration. The scope was withdrawn back in the stomach. The gastric antrum and body appeared normal with good peristalsis. The scope was retroflexed visualizing the proximal stomach carefully, which appeared normal, without any mass or ulceration. The scope was straightened and withdrawn back to the esophagus. Multiple biopsies were obtained between 34 and 35 cm. Proximal to 34 cm, the esophageal mucosa appeared normal. The scope was withdrawn from the patient. He tolerated both procedures well and was returned to the recovery area in stable condition. IMPRESSION: 1. Large colon polyp, status post hot snare polypectomy with placement of 2 ultra resolution clips. 2. Diverticulosis. 3. Internal hemorrhoids. 4. Large hiatal hernia with associated reflux and Conley esophagus. PLAN: The results of the biopsies will be checked. If the polyp does not show any worrisome changes of high-grade dysplasia or carcinoma, I would then recommend a repeat colonoscopy in 3 years. If the Conley esophagus does not show any dysplasia, I would recommend a repeat upper endoscopy in 3 years as well. He was advised not to use any aspirin nor NSAIDs for 2 weeks. He will continue omeprazole but I shall send a prescription to change his omeprazole from 20 mg to 40 mg daily. He will be seen for a followup office visit as well. MD ERIS Gallardo/FOREST / [phone]
== END 2024-10-07 13:06 | disposition home or self-care (01) ==
PROVIDERS: PCP Internal Medicine; Visit Provider Internal Medicine
PROC: (CPT 45385; principal; 2024-10-07 11:00)
DX: Z12.11 Encounter for screening for malignant neoplasm of colon (principal); Z86.0101 Personal history of adenomatous and serrated colon polyps; D12.5 Benign neoplasm of sigmoid colon; K57.30 Diverticulosis of large intestine without perforation or abscess without bleeding; K64.8 Other hemorrhoids; K21.9 Gastro-esophageal reflux disease without esophagitis; K22.70 Barrett's esophagus without dysplasia; K31.7 Polyp of stomach and duodenum; K44.9 Diaphragmatic hernia without obstruction or gangrene; E78.5 Hyperlipidemia, unspecified; G47.33 Obstructive sleep apnea (adult) (pediatric); Z79.899 Other long term (current) drug therapy; Z98.890 Other specified postprocedural states; F17.210 Nicotine dependence, cigarettes, uncomplicated
CPT/HCPCS: 45385; 43239; 88305; J1100; J1596; J2003; J2704

== ENCOUNTER 2024-11-30 15:21 | Outpatient (AMB) | payer OTHER, SELFPAY ==
[2024-11-30 16:18] VITALS: BP 132/78; PULSE 75; O2SAT 96; BMI 36.6
--- NOTE | 2024-11-30 16:18 | A.OFFPC_ITS ---
Vital Signs 11/30/24 16:18 Height 5 ft 9 in Weight 248 lb BMI 36.6 BP 132/78 Blood Pressure Location Lt brachial Position Sitting Pulse 75 Pulse Source Pulse Oximeter Pulse Oximetry (%) 96 Oxygen Delivery Method Room Air Intake Visit Reasons: PE Allergies No Known Allergies Allergy (Verified 11/30/24 16:19) Medication List - Last Reconciled 11/30/24 by Parish Son MD cholecalciferol (vitamin D3) 50 mcg PO DAILY cyanocobalamin (vitamin B-12) 1,000 mcg PO DAILY folic acid 1 mg PO DAILY omeprazole 40 mg PO BID [Probiotic PO DAILY] simvastatin 10 mg PO BEDTIME 90 days Tobacco use date assessed: 11/30/24 Fall risk assessment: No Falls in past year Last assessed Fall Risk: 11/30/24 Dental Screening Dental Screen Date: 11/30/24 Did you have a dental visit in the last 12 months?: No Did you have a dental problem in the last 6 months where you did not have access to dental care?: No Was dental information given to patient?: Patient has dentist HPI PE HPI Details The patient is a 64-year-old male presenting with follow-up concerns regarding hypertension and tubular adenoma, as well as evaluation of chronic knee pain. The patient?s hypertension has been well-controlled. During a colonoscopy performed earlier this year, the patient was found to have tubular adenoma, which is being monitored due to its potential for changes. The patient reports chronic right knee pain, which requires surgical intervention but was previously postponed due to lack of insurance. The knee pain has progressively worsened, affecting mobility and quality of life. The patient reports a history of undergoing a meniscus surgery in 2018 at [facility], but he has not had a recent evaluation. A prior x-ray was done in 2018, showing significant degenerative changes. - Blood Pressure Monitoring: Well contro lled. - Colonoscopy: Tubular adenoma detected; follow-up recommended. - Smoking Cessation: Discussed patient?s current smoking habits and cessation. - Vaccinations: Discussion about flu dami ts. - Smoking: Current smoker, approximately one pack per day. - Alcohol Use: Consumes approximately si x beverages a week during leisure activities. - Exercise: Limited due to knee pain. - Occupation: Retired, previously worked long hours standing. - Insurance: Currently resolved, [facility]on [employer] lacked necessary insurance for knee surgery. - Respiratory: Denies shortness of breat h and dyspnea. - Gastrointestinal: Denies vomiting and nausea. - Neurological: Denies dizziness or pass ing out. - Colonoscopy: Tubular adenoma found. - X-Ray (2018): Right knee shows signifi cant degenerative changes. - Previous CAT scan: Noted spots in the lungs requiring follow-up. [facility] Medical History (Updated 11/30/24 @ 16:56 by Parish Son MD) Nicotine dependence, cigarettes, uncomplicated Impaired glucose tolerance Compression fracture of T6 vertebra Pulmonary nodule GERD (gastroesophageal reflux disease) Cervical compression fracture Lumbar disc herniation Obstructive sleep apnea Obesity (BMI 30-39.9) Hypercholesterolemia Vitamin D deficiency Tubular adenoma of colon Conley's esophagus Renal calculi Surgical History (Updated 06/15/24 @ 16:10 by Ev Farias PA-C) History of right knee surgery History of esophagogastroduodenoscopy (EGD) History of colonoscopy History of ventral hernia repair Social History (Updated 11/30/24 @ 16:55 by Parish Son MD) Housing: House Alcohol intake: current Comment: once a week 6 drinks Patient Tobacco Use Status: Current everyday Tobacco user Tobacco use type: Cigarette Cigarette Packs Per Day: 1 Cigarettes Per Day: 20.0 Years Smoked: smoking 15 years old e-Cigarette/Vaping Use: Never Used Second Hand Smoke Exposure: Yes Current occupational status: employed Cognitive needs: No Hearing needs: No Vision needs: Yes Questionnaire PHQ-9 Over the last 2 weeks, how often have you been bothered by any of the following problems? 1. Little interest or pleasure in doing things: not at all 2. Feeling down, depressed, or hopeless: several days 3. Trouble falling or staying asleep, or sleeping too much: not at all 4. Feeling tired or having little energy: not at all 5. Poor appetite or overeating: not at all 6. Feeling bad about yourself - or that you are a failure or have let yourself or your family down: not at all 7. Trouble concentrating on things, such as reading the newspaper or watching television: not at all 8. Moving or speaking so slowly that other people could have noticed. Or the opposite - being so fidgety or restless that you have been moving around a lot more than usual: not at all 9. Thoughts that you would be better off or of hurting yourself in some way: not at all Total score: 1 Depression Screening Interpretation: Negative Depression Screening Done: Yes Source: Developed by Drs. Mj Hansen, Eliane Santos, Paramjit Winston and colleagues, with an educational danielle from [employer]. Thrive Questionnaire Date Thrive assessed: 11/30/24 I am a: Patient What is your living situation today?: I have a steady place to live Within the past 12 months, did the food you bought not last and you didn't have the money to get more?: Never true Within the past 12 months, did you worry whether your food would run out before you got money to buy more?: Never true Do you have trouble paying for medicines?: No Do you have trouble getting transportation to medical appointments?: No Do you have trouble paying your heating and electricity bill?: No Do you have trouble taking care of your child, family member or friend?: No Do you have trouble with day-to-day activities such as bathing, preparing meals, shopping, managing finances, etc.?: No Are you currently unemployed and looking for a job?: No Are you interested in more education?: No Please select the resources that you would like help with: None Currently or been in a relationship where the following occur: No concerns reported THRIVE Score: 0 AUDIT C Alcohol Use Questionnaire (AUDIT-C) 1. How often do you have a drink containing alcohol?: Monthly or less 2. How many drinks containing alcohol do you have on a typical day when you are drinking?: 7 to 9 3. How often do you have six or more drinks on one occasion?: Monthly Total Score: 6 JAZ-7 AMB Questionnaire JAZ-7 Date JAZ - 7 assessed: 11/29/23 Feeling nervous, anxious, or on edge: 0 = Not at all Not being able to stop or control worryin = Not at all Worrying too much about different things: 0 = Not at all Trouble relaxin = Not at all Being so restless that it is hard to sit still: 0 = Not at all Becoming easily annoyed or irritable: 0 = Not at all Feeling afraid as if something awful might happen: 0 = Not at all Total JAZ-7 score (0-4 normal; 5-9 mild; 10-14 moderate; 15-21 severe): 0 Source: Developed by Drs. Mj Hansen, Eliane Santos, Paramjit Winston and colleagues, with an educational danielle from [employer]. Review of Systems Const Denies poor appetite and Denies weakness Eyes Denies no additional complaints ENT Reports Normal hearing present, Denies dizziness, Denies nasal congestion, Denies tinnitus and Denies sore throat Card Denies chest pain, Denies syncope, Denies rapid heart rate and Denies dyspnea Resp Denies cough and Denies dyspnea GI Denies change in stool character, Reports constipation, Denies diarrhea, Denies nausea and Denies vomiting Denies dysuria and Denies urinary frequency Neuro Reports Normal hearing present, Denies confusion, Denies dizziness, Denies syncope and Denies weakness Psych Denies confusion Physical exam (Primary Care) Vital Signs: Last Vital Signs Pulse 75 11/30/24 16:18 BP 132/78 11/30/24 16:18 Pulse Ox 96 11/30/24 16:18 Oxygen Delivery Method Room Air 11/30/24 16:18 BMI result Body Mass Index 36.6 Tobacco/Smoking Status: Tobacco use Status Tobacco use date assessed 11/30/24 11/30/24 16:23 Patient Tobacco Use Status Current everyday Tobacco 11/30/24 16:55 Tobacco use type Cigarette 11/30/24 16:55 e-Cigarette/Vaping Use Never Used 11/30/24 16:55 PHQ-9: PHQ-9 Score PHQ-9: Total score 1 11/30/24 17:10 Depression Screening Interpretation: Negative Thrive Assessment: Date of Thrive Assessment Date Thrive assessed 11/30/24 11/30/24 16:23 Currently or been in a relationship where the following occur: No concerns reported Const General: No confusion Orientation/consciousness: No confusion HENMT Head: Yes normocephalic Ears: external ears normal and TM's normal bilaterally Face and sinus: Yes normal facial exam Mouth: moist mucous membranes Throat: Yes tonsils normal Eyes Conjunctivae: conjunctivae normal Pupils: Equal, round and reactive pupils present and Pupil accommodation reflex normal Direct Ophthalmoscopy: normal light reflex Neck Neck: No lymphadenopathy Thyroid: Thyroid normal Chest Chest palpation & inspection: normal inspection of the chest Resp Effort & Inspection: normal respiratory effort and no audible wheezes Auscultation: clear to auscultation bilaterally, no crackles, no wheezes and lung sounds not diminished Cardio Rate: regular rate Rhythm: regular rhythm Peripheral pulses: radial pulses present and dorsalis pedis present GI Palpation (GI): no masses Auscultation: normal bowel sounds and normoactive bowel sounds Rectal Exam - Male: Yes deferred Skin General skin exam: no rashes or lesions noted Rashes: no rashes Neuro General: No confusion Cranial nerves: Yes Equal, round and reactive pupils present and Yes Normal hearing present Cognition (Neuro): normal cognition Gait exam (Neuro): Normal gait present Motor exam (neuro): 5/5 motor strength present throughout Deep tendon reflexes (DTR's): Right brachioradialis reflex intensity grade: 2+, Left brachioradialis reflex intensity grade: 2+, Right patellar reflex intensity grade: 2+ and Left patellar reflex intensity grade: 2+ Extrem General: No edema Office Procedures Flu Questionnaire Does the patient have a severe egg allergy?: No Does the patient have severe life threatening allergies?: No Does the patient have a fever or illness today?: No Has the patient ever had Guillain-[place] Syndrome?: No Has the patient ever had any past reaction to a flu shot?: No Immunizations Fluarix Triv 3025-1565 (PF) 45 mcg (15 mcg x 3)/0.5 mL IM syringe Performing Provider: Parish Son MD [facility] Administered by: Ella Us CMA on 11/30/24 17:10 Dose Route Admin Location Dispensed Lot Number Expiration Date [facility] Hook Loader 0.5 mL IM Left Deltoid 0.5 mL [id number] 05/24/25 [id number] [employer] VIS Given Date VIS Provided VIS Publication Date 11/30/24 Single Vaccine 21 Eligibility Eligibility Date Funding Source Not [facility] Eligible 11/30/24 Private Coding Level of Care Code Est Pt Prev Care 40-64y(09748) Diagnoses Annual physical exam Z00.00 Multiple pulmonary nodules R91.8 Obesity (BMI 30-39.9) E66.9 Tubular adenoma of colon D12.6 Conley's esophagus without dysplasia K22.70 Conley's esophagus type: without dysplasia Nicotine dependence, cigarettes, uncomplicated F17.210 Impaired glucose tolerance R73.02 Hypercholesterolemia E78.00 Osteoarthritis of right knee M17.11 Assessment & Plan Assessment & Plan (1) Annual physical exam: Code(s): Z00.00 - Encounter for general adult medical examination without abnormal fi ndings Category: Medical (2) Multiple pulmonary nodules: Comment: 01/2024 Code(s): R91.8 - Other nonspecific abnormal finding of lung field Category: Medical (3) Obesity (BMI 30-39.9): Code(s): E66.9 - Obesity, unspecified Category: Medical (4) Tubular adenoma of colon: Comment: (TAs on 2011 & 2018 scope - repeat 5yrs) 2023 Code(s): D12.6 - Benign neoplasm of colon, unspecified Category: Medical (5) Conley's esophagus: Code(s): K22.70 - Conley's esophagus without dysplasia Category: Medical Qualifiers: Conley's esophagus type: without dysplasia Qualified Code(s): K22.70 - Conley's esophagus without dysplasia (6) Nicotine dependence, cigarettes, uncomplicated: Code(s): F17.210 - Nicotine dependence, cigarettes, uncomplicated Category: Medical (7) Impaired glucose tolerance: Code(s): R73.02 - Impaired glucose tolerance (oral) Category: Medical (8) Hypercholesterolemia: Code(s): E78.00 - Pure hypercholesterolemia, unspecified Category: Medical (9) Osteoarthritis of right knee: Code(s): M17.11 - Unilateral primary osteoarthritis, right knee Category: Medical Plan - Refer for orthopedic consultation to evaluate the chronic knee pain and discuss potential surgical intervention. - Schedule an updated x-ray for the right knee to reassess current condition. - Reassess tubular adenoma with suggested follow-ups and monitor any changes. - Discuss smoking cessation options and emphasize need for cessation. - Continue to monitor blood pressure and maintain regular check-ups. - Investigate insurance coverage for CPAP as an option for sleep apnea concerns. - Prescribe Voltaren gel for topical management of knee pain. - Administer a flu shot during this visit. During the visit, I discussed the management of hypertension, tubular adenoma surveillance, and the need for orthopedic evaluation for the knee. Risks, benefits, and alternatives for the management of knee pain were reviewed, including the need for potential surgery. The patient was advised on smoking cessation and its benefits in overall health improvement. A flu vaccination was recommended due to the current flu season. Future follow-ups were discussed to address any changes in condition. - Follow-up with note specialist for knee evaluation. - Schedule and complete an x-ray for the right knee. - Use Voltaren gel as needed for knee pain relief. - Stop smoking. Try cessation aids discussed today. - Monitor and report any changes in symptoms related to tubular adenoma. - Adhere to blood pressure medication as prescribed. - Receive the flu shot administered today. - Return for regular follow-up visits. Orders: Orders XR knee standing BI Today M17.11 - Unilateral primary osteoarthritis, right knee Free T4 (Free Thyroxine) Today E78.00 - Pure hypercholesterolemia, unspecified Hemoglobin A1c Today E78.00 - Pure hypercholesterolemia, unspecified Vitamin B12 and Folate Today E78.00 - Pure hypercholesterolemia, unspecified Complete Blood Count Auto Diff Today E78.00 - Pure hypercholesterolemia, unspecified Comprehensive Met. Panel Today E78.00 - Pure hypercholesterolemia, unspecified Lipid Panel Today E78.00 - Pure hypercholesterolemia, unspecified Thyroid Stimulating Hormone Today E78.00 - Pure hypercholesterolemia, unspecified Prostate Specific Antigen Scr Today E78.00 - Pure hypercholesterolemia, unspecified UA CC w/rflx Micro + Cult Today E78.00 - Pure hypercholesterolemia, unspecified, R30.0 - Dysuria Influenza [id number] Immunization Today Z23 - Encounter for immunization Referrals Orthopedics Referral M17.11 - Unilateral primary osteoarthritis, right knee Medications: New diclofenac sodium 1% (Voltaren Arthritis Pain) apply to single knee, ankle, foot; for foot includes sole/toes/top of foot 4 grams topical QID 100 grams 3RF M17.11 - Unilateral primary osteoarthritis, right knee
== END 2024-11-30 17:16 | disposition home or self-care (01) ==
PROVIDERS: PCP Internal Medicine; Visit Provider Internal Medicine
DX: Z00.00 Encounter for general adult medical examination without abnormal findings (principal); R91.8 Other nonspecific abnormal finding of lung field; E66.9 Obesity, unspecified; Z68.36 Body mass index [BMI] 36.0-36.9, adult; D12.6 Benign neoplasm of colon, unspecified; K22.70 Barrett's esophagus without dysplasia; F17.210 Nicotine dependence, cigarettes, uncomplicated; R73.02 Impaired glucose tolerance (oral); M17.11 Unilateral primary osteoarthritis, right knee; E78.00 Pure hypercholesterolemia, unspecified; Z23 Encounter for immunization

== ENCOUNTER → 2024-11-30 15:21 | Outpatient (BNVA) | payer OTHER, SELFPAY | PROVIDERS: PCP Internal Medicine; Visit Provider Internal Medicine | DX: Z00.00 Encounter for general adult medical examination without abnormal findings (principal); I10 Essential (primary) hypertension; R91.8 Other nonspecific abnormal finding of lung field; E66.9 Obesity, unspecified; D12.6 Benign neoplasm of colon, unspecified; K22.70 Barrett's esophagus without dysplasia; R73.02 Impaired glucose tolerance (oral); E78.00 Pure hypercholesterolemia, unspecified; M17.11 Unilateral primary osteoarthritis, right knee; F17.210 Nicotine dependence, cigarettes, uncomplicated; R30.0 Dysuria; Z23 Encounter for immunization; Z68.36 Body mass index [BMI] 36.0-36.9, adult | CPT/HCPCS: 90471; 90656; 96127; 99396 ==

== ENCOUNTER 2024-12-15 06:55 | Outpatient (REF) | payer OTHER, SELFPAY ==
--- NOTE | ~2024-12-15 | XR_ITS ---
CLINICAL HISTORY: M17.11 - Unilateral primary osteoarthritis, right knee 1 view bilateral knee Comparison: None Findings: Severe osteoarthritis of the right knee with marked varus angulation and bone/bone contact of the medial compartment. Articular surface irregularities appear most pronounced in the imaged medial compartment. Foci of sclerosis appear nonaggressive. Likely [id number] osteoarthritis of the imaged left knee with mild varus angulation. Periosteal thickening including proximal tibia can be seen with venous stasis and stress phenomenon. Marker opacities noted. IMPRESSION: 1. Severe osteoarthritis of the right knee with varus angulation. 2. [id number] osteoarthritis of the left knee bifrontal radiographs. This document has been electronically signed by: Ricardo Neumann MD on 12/16/2024 01:59:56
[2024-12-15 10:02] LABS: MANUAL DIFF FLAG NO
[2024-12-15 10:13] LABS: Basophils Absolute Auto 0.1 X10*3/uL (0.0-0.2); Basophils Percent Auto 0.6 % (0-2); Eosinophils Absolute Auto 0.2 X10*3/uL (0.0-0.4); Eosinophils Percent Auto 2.9 % (0-4); Hematocrit 45.7 % (42.0-52.0); Hemoglobin 16.1 g/dl (14.0-18.0); Imm Gran Abs Auto 0.06 X10*3/uL (0.00-0.03); Imm Gran Pct Auto 0.8 % (0.0-0.4); Lymphocytes Absolute Auto 2.4 X10*3/uL (1.2-4.9); Lymphocytes Percent Auto 30.1 % (20-40); Mean Corpuscular HGB Conc 35.2 g/dl (31.0-36.0); Mean Corpuscular Hemoglobin 32.8 pg (27.0-33.0); Mean Corpuscular Volume 93.1 fL (80.0-98.0); Mean Platelet Volume 8.5 fL (9.4-12.4); Monocytes Absolute Auto 0.6 X10*3/uL (0.1-1.2); Monocytes Percent Auto 7.2 % (2-11); Neutrophils Absolute Auto 4.6 x10*3/uL (2.0-8.3); Neutrophils Percent Auto 58.4 % (45-73); Platelet Count 256 X10*3/uL (160-400); Red Blood Count 4.91 X10*6/uL (4.60-5.80); Red Cell Distribution Width 12.8 % (11.0-16.0); White Blood Count 7.9 X10*3/uL (4.8-10.8)
[2024-12-15 10:28] LABS: Appearance Urine Turbid; Color Urine Yellow; Glucose Urine UA Negative (Negative); Leukocyte Esterase Urine Negative (Negative); Nitrite Urine Negative (Negative); Urine Blood Negative (Negative); Urine Ketones Negative (Negative); Urine Protein Negative (Neg-Trace)
[2024-12-15 10:56] LABS: Estimated Average Glucose 103 mg/dL; Hemoglobin A1C 139.3142 umol/L; Hemoglobin A1c % 5.2 % (<6.0); Total Hemoglobin (HGBA1C) 4142.6599 umol/L
[2024-12-15 11:16] LABS: Anion Gap 11 (12-20); Blood Urea Nitrogen 14 mg/dL (9-16); Carbon Dioxide 26 mmol/L (22-29); Chloride 106 mmol/L (96-108); Potassium 3.8 mmol/L (3.3-5.1); Sodium 139 mmol/L (135-145)
[2024-12-15 11:17] LABS: Alanine Aminotransferase 28 U/L (0-40); Alkaline Phosphatase 47 U/L (39-117); Aspartate Amino Transferase 25 U/L (5-37); Bilirubin Total 0.6 mg/dL (0.0-1.0); Cholesterol 161 mg/dL (<200); Estimated Glomerular Filt Rate > 60; Free T4 (Free Thyroxine) 1.17 ng/dL (0.71-1.85); Glucose Random 97 mg/dL (60-115); HDL Cholesterol 37 mg/dL (>40); LDL Cholesterol Calculated 102 mg/dL (<100); Thyroid Stimulating Hormone 1.63 uIU/mL (0.32-4.0); Total Protein 7.1 g/dL (6.5-8.0); Triglycerides 110 mg/dL (<150)
[2024-12-15 11:22] LABS: Folate 15.8 ng/mL (> or = 4.0); Prostate Specific Antigen Scr 0.65 ng/mL (<0.05-4.0); Vitamin B12 754 pg/mL (200-900)
== END 2024-12-15 06:56 | disposition home or self-care (01) ==
LOC: HO.HMGCX 06:55
PROVIDERS: PCP Internal Medicine; Visit Provider Internal Medicine
DX: Z12.5 Encounter for screening for malignant neoplasm of prostate (principal); M17.0 Bilateral primary osteoarthritis of knee; E78.00 Pure hypercholesterolemia, unspecified; R30.0 Dysuria
CPT/HCPCS: 36415; 73565; 80053; 80061; 81003; 82607; 82746; 83036; 84153; 84439; 84443; 85025

== ENCOUNTER → 2024-12-15 08:39 | Outpatient (BNV) | payer OTHER, SELFPAY | PROVIDERS: PCP Internal Medicine; Visit Provider Radiology Neuroradiology | DX: M17.0 Bilateral primary osteoarthritis of knee (principal) | CPT/HCPCS: 73565 ==

== ENCOUNTER 2024-12-31 12:40 | Outpatient (AMB) | payer MEDICARE, SELFPAY ==
--- NOTE | 2024-12-31 12:46 | A.OFFVIS_ITS ---
Intake Visit Reasons: Right knee pain Intake Note: Samy is a 64 year old male who presents with complaints of progressively worsening right knee pain. The patient describes his pain as sharp and severe in nature, 10/10. Most of the pain is along the medial aspect of his knee. He has undergone right knee ?meniscus surgery? in the past. He got only temporary relief from that procedure. He has had multiple injections given into his right knee. The most recent injection gave him minimal relief. He has also tried Tylenol, anti-inflammatory medicines and diclofenac topical gel which gave him minimal relief. The patient has difficulty walking even short distances because of his pain. At this point his right knee pain is interfering with his activities of daily living and his ability to sleep well through the night. Allergies No Known Allergies Allergy (Verified 11/30/24 16:19) Medication List - Last Reconciled 12/31/24 by Danny Jay MD cholecalciferol (vitamin D3) 50 mcg PO DAILY cyanocobalamin (vitamin B-12) 1,000 mcg PO DAILY diclofenac sodium 1% (Voltaren Arthritis Pain) 4 grams topical QID folic acid 1 mg PO DAILY omeprazole 40 mg PO BID [Probiotic PO DAILY] simvastatin 10 mg PO BEDTIME 90 days [facility] Medical History Nicotine dependence, cigarettes, uncomplicated Impaired glucose tolerance Compression fracture of T6 vertebra Pulmonary nodule GERD (gastroesophageal reflux disease) Cervical compression fracture Lumbar disc herniation Obstructive sleep apnea Obesity (BMI 30-39.9) Hypercholesterolemia Vitamin D deficiency Tubular adenoma of colon Conley's esophagus Renal calculi Surgical History History of right knee surgery History of esophagogastroduodenoscopy (EGD) History of colonoscopy History of ventral hernia repair Social History Housing: House Alcohol intake: current Comment: once a week 6 drinks Patient Tobacco Use Status: Current everyday Tobacco user Tobacco use type: Cigarette Cigarette Packs Per Day: 1 Cigarettes Per Day: 20.0 Years Smoked: smoking 15 years old e-Cigarette/Vaping Use: Never Used Second Hand Smoke Exposure: Yes Current occupational status: employed Cognitive needs: No Hearing needs: No Vision needs: Yes Physical Exam Const Other: Well-nourished well-developed very friendly male awake alert and oriented x3 in no acute distress Extrem Other: Bilateral lower extremity examination shows good capillary refill, no skin lesions noted, normal sensation light touch Right knee examination shows a minimal effusion, palpable crepitus with range of motion, pain with range of motion, range of motion from -3 degrees to 115 degrees, no instability Results Reviewed Results Reviewed: X-rays of the patient's right knee show end-stage degenerative joint disease with grade 4 [id number] arthritis in the medial compartment, subchondral sclerosis, osteophyte formation, no acute bony abnormalities Assessment & Plan Assessment & Plan (1) Right knee pain: Code(s): M25.561 - Pain in right knee (2) Osteoarthritis of right knee: Code(s): M17.11 - Unilateral primary osteoarthritis, right knee Category: Medical Plan Mr. Muniz presents with progressively worsening right knee pain due to end- stage degenerative joint disease. I had a lengthy discussion with the patient regarding the treatment options. At this point he has failed continued non operative treatments. The risks and benefits of right total knee replacement surgery were discussed at length with the patient. The patient wishes to proceed with surgery. He will be scheduled for next available date. I will see him back 1 week prior to his surgery to answer any final questions that he might have. Feel free to call me at any time should questions regarding his orthopedic management arise. Thank you very much for asking me to see this very friendly gentleman. I spent 22 minutes in reviewing the patient's records and imaging studies, seeing the patient and documenting in the medical record. Coding Level of Care Code Est Pt Level 3 (59744) Complex EM visit Add On G2211 Diagnoses Right knee pain M25.561 Osteoarthritis of right knee M17.11
== END 2024-12-31 13:32 | disposition home or self-care (01) ==
PROVIDERS: PCP Internal Medicine; Visit Provider Orthopaedic Surgery
DX: M25.561 Pain in right knee (principal); M17.11 Unilateral primary osteoarthritis, right knee
CPT/HCPCS: 99214; G2211

== ENCOUNTER → 2024-12-31 12:40 | Outpatient (BNVA) | payer MEDICARE, SELFPAY | PROVIDERS: PCP Internal Medicine; Visit Provider Orthopaedic Surgery | DX: M17.11 Unilateral primary osteoarthritis, right knee (principal) | CPT/HCPCS: 99212 ==

== ENCOUNTER 2025-01-26 09:56 | Outpatient (AMB) | payer MEDICARE, SELFPAY ==
--- NOTE | 2025-01-26 10:17 | A.OFFPC_ITS ---
Vital Signs 01/26/25 10:18 01/26/25 10:39 Height 5 ft 9 in Weight 247 lb 2 oz BMI 36.5 BP 144/82 H 122/80 Blood Pressure Location Lt brachial Lt brachial Position Sitting Sitting Pulse 82 Pulse Source Pulse Oximeter Temp 98 F Temp Source Temporal Artery Scan Pulse Oximetry (%) 96 Oxygen Delivery Method Room Air Intake Visit Reasons: R ASHLEY w/Dr. Jay 03/08/25 Intake Note: Patient is here for a Pre-op for Rt TKA scheduled with Dr. Jay at [facility] on 03/08/2025. Contracts Director Required: No Accompanied by: Self / Same As Patient Allergies No Known Allergies Allergy (Verified 01/26/25 10:32) Medication List - Last Reconciled 01/26/25 by Stephanie Mckeon PA-C cholecalciferol (vitamin D3) 50 mcg PO DAILY cyanocobalamin (vitamin B-12) 1,000 mcg PO DAILY diclofenac sodium 1% (Voltaren Arthritis Pain) 4 grams topical QID folic acid 1 mg PO DAILY omeprazole 40 mg PO BID [Probiotic PO DAILY] simvastatin 10 mg PO BEDTIME 90 days walker Folding front wheeled walker Tobacco use date assessed: 01/26/25 Fall risk assessment: No Falls in past year Last assessed Fall Risk: 01/26/25 Dental Screening Dental Screen Date: 01/26/25 Did you have a dental visit in the last 12 months?: Yes Did you have a dental problem in the last 6 months where you did not have access to dental care?: No Was dental information given to patient?: Patient has dentist HPI R TKA w/Dr. Jay 03/08/25 HPI Details 65-year-old male with past medical histo ry obesity, GERD, tobacco abuse, obstructive sleep apnea, hypercholesterolemia, impaired glucose tolerance last seen 11/[address] Son coming in for preoperative exam. Patient is scheduled to have a right total knee replacement with Dr. Jay 03/08/2025. Patient has no history of CVA, diabetes mellitus, OH or CHF. He has had surgery and anesthesia in the past without complication. Due to his obstructive sleep apnea he we will be evaluated by pulmonology for clearance prior to surgery. Hypercholesterolemia: Last cholesterol within normal limits. Impaired glucose tolerance: Last A1c 5.2% not currently on medical management Obstructive sleep apnea: Does not use CPAP and follows with pulmonology regularly [facility] Medical History Nicotine dependence, cigarettes, uncomplicated Impaired glucose tolerance Compression fracture of T6 vertebra Pulmonary nodule GERD (gastroesophageal reflux disease) Cervical compression fracture Lumbar disc herniation Obstructive sleep apnea Obesity (BMI 30-39.9) Hypercholesterolemia Vitamin D deficiency Tubular adenoma of colon Conley's esophagus Renal calculi Surgical History History of right knee surgery History of esophagogastroduodenoscopy (EGD) History of colonoscopy History of ventral hernia repair Social History Housing: House Alcohol intake: current Comment: once a week 6 drinks Patient Tobacco Use Status: Current everyday Tobacco user Tobacco use type: Cigarette Cigarette Packs Per Day: 1 Cigarettes Per Day: 20.0 Years Smoked: smoking 15 years old Packs Per Year: 0 Packs per year/per ci.00 e-Cigarette/Vaping Use: Never Used Second Hand Smoke Exposure: Yes Current occupational status: employed Cognitive needs: No Hearing needs: No Vision needs: Yes Questionnaire Thrive Questionnaire Date Thrive assessed: 11/30/24 AUDIT C Alcohol Use Questionnaire (AUDIT-C) 2. How many drinks containing alcohol do you have on a typical day when you are drinking?: 1 or 2 3. How often do you have six or more drinks on one occasion?: Monthly Total Score: 2 JAZ-7 AMB Questionnaire JAZ-7 Date JAZ - 7 assessed: 11/29/23 Source: Developed by Drs. Mj Hansen, Eliane Santos, Paramjit Winston and colleagues, with an educational danielle from [employer]. Review of Systems Const Denies body aches, Denies chills, Denies fever(s), Denies headache(s) and Denies poor appetite Eyes Reports no additional complaints ENT Denies dysphagia, Denies dizziness, Denies headache(s) and Denies odynophagia Card Denies chest pain, Denies syncope, Denies edema, Denies irregular heart rhythm, Denies lightheadedness and Denies dyspnea Resp Denies cough and Denies dyspnea GI Denies abdominal pain, Denies constipation, Denies dysphagia, Denies diarrhea, Denies nausea, Denies odynophagia and Denies vomiting Reports no additional complaints Musc Reports no additional complaints and Denies abnormal gait Skin/Breast Reports system reviewed and no additional complaints, except as documented Neuro Denies abnormal gait, Denies dizziness, Denies syncope and Denies headache(s) Psych Reports no additional complaints Physical exam (Primary Care) Vital Signs: Last Vital Signs Temp 98 F 01/26/25 10:18 Pulse 82 01/26/25 10:18 BP 144/82 H 01/26/25 10:18 Pulse Ox 96 01/26/25 10:18 Oxygen Delivery Method Room Air 01/26/25 10:18 BMI result Body Mass Index 36.5 Tobacco/Smoking Status: Tobacco use Status Tobacco use date assessed 01/26/25 01/26/25 10:21 Patient Tobacco Use Status Current everyday Tobacco 01/26/25 10:20 Tobacco use type Cigarette 01/26/25 10:20 e-Cigarette/Vaping Use Never Used 01/26/25 10:20 Thrive Assessment: Date of Thrive Assessment Date Thrive assessed 11/30/24 01/26/25 10:20 Const General: cooperative, healthy appearing, comfortable and no acute distress Orientation/consciousness: patient oriented x3 HENMT Head: Yes normocephalic Ears: hearing grossly normal bilaterally General nose exam: Normal external nose present Eyes General: appearance normal, both eyes and all related structures Conjunctivae: conjunctivae normal Neck Neck: Yes full ROM and Yes no lymphadenopathy Resp Effort & Inspection: normal respiratory effort Auscultation: clear to auscultation bilaterally, no crackles, no rales, no rhonchi and no wheezes Cardio Rate: regular rate Rhythm: regular rhythm Skin General skin exam: no rashes or lesions noted Neuro General: patient oriented x3 Gait exam (Neuro): Normal gait present Extrem General: Yes normal to inspection, Yes full ROM and No edema Psych Affect: normal affect Attitude: cooperative Insight: Good insight present (Psych) Judgement: Good judgement present (Psych) Coding Level of Care Code Est Pt Level 3 (40667) Diagnoses Pre-op evaluation Z01.818 Assessment & Plan Assessment & Plan (1) Pre-op evaluation: Code(s): Z01.818 - Encounter for other preprocedural examination Category: Medical Plan: Regarding preop clearance, the patient is at moderate risk for proposed surgery due to age and comorbidities which are well managed at this time. Reviewed with the patient that no surgery is completely free of risk and that this examination is to assist the surgeon in reviewing informed consent. I discussed with the patient he may take all medications as prescribed up until the day of the procedure and hold medications on the morning of. Avoid NSAIDs 1 week prior to surgery. Most recent blood work from 11/2024 has been reviewed and within normal limits. Due to new policy patient will need additional blood work 1 week prior to surgery including CBC with differential, BMP and type and screen. He will also need EKG prior to surgery which has been ordered and informed patient have this done in the next few weeks. Patient is also scheduled to be seen by pulmonology for pulmonology clearance prior to surgery and addendum will be added the note provided clearance once this is completed. Plan This note was constructed using voice recognition software. While every effort has been made to ensure accuracy and ncaa compliance internship, still areas may have been included sometimes these areas may affect the content or meeting of the given symptoms. Total time spent caring for the patient today was 30 minutes. This includes time spent before the visit reviewing the chart, time spent during the visit, and time spent after the visit and documentation. Orders: Orders Complete Blood Count Auto Diff Today Z01.818 - Encounter for other preprocedural examination ECG 12 lead EKG Today Z01.818 - Encounter for other preprocedural examination Comprehensive Met. Panel Today Z01.818 - Encounter for other preprocedural examination
[2025-01-26 10:18] VITALS: BP 144/82; PULSE 82; TEMP 36.6; O2SAT 96; BMI 36.5
[2025-01-26 10:39] VITALS: BP 122/80
--- OUTSIDE RECORDS SUMMARY | 2025-01-26 11:50 | XMS_ITS ---
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
--- OUTSIDE RECORDS SUMMARY | 2025-01-26 11:50 | XMS_ITS ---
Author Organization [facility] Address [address] [place] [address] Care Team Providers Care Seat Joiner Name Role Phone Parish Son MD Primary Care Provider Mj Negrete [phone] REASON FOR VISIT please schedule f/u with Dr. Mendoza Encounters Encounter Location Date Provider Diagnosis [facility] [address] [place] [address] 10/08/2024 Mj Mendoza PLAN OF TREATMENT Next Appt Details Provider Name:Mj Mendoza , 02/11/2025 09:40:00 AM, [address], [address], [place], [address],
--- OUTSIDE RECORDS SUMMARY | 2025-01-26 11:50 | XMS_ITS | Patient Health Record ---
Author Organization [facility] Address [address] [place] [address] Care Team Providers Care Encyclopedia Research Worker Name Role Phone Parish Son MD Primary Care Provider Mj Negrete [phone] ALLERGIES No Known Allergies RESULTS Component Value Reference Range Notes Pathology (Not yet reviewed by provider) Interpretation: Performing Lab:[facility], [address] [place] [id number] Notes/Report: REASON FOR REFERRAL No Information MEDICATIONS Medication SIG (Take, Route, Frequency, Duration) Notes Start Date End Date Status Folic Acid 1 MG 1 tablet Orally Once a day for 30 day(s) Active Vitamin B12 1000 MCG 1 tablet Orally Onc e a day for 30 day(s) Active Omeprazole 40 MG 1 Orally Once a day every morning assisted for 90 days 10/07/2024 Active Omeprazole 20 mg TAKE 1 CAPSULE BY [facility] EVERY DAY for 30 Active Atorvastatin Calcium 10 MG 1 tablet Oral ly Once a day for 30 day(s) 12/10/2018 Active Vitamin D 1000 UNIT 1 capsule Orally Onc e a day for 30 day(s) Active IMMUNIZATIONS Vaccine Route Administration Date Status Comme nts Influenza Unknown 08/05/2018 Administered SOCIAL HISTORY Tobacco Use: Social History Observation Description Date Details (start date - stop date) Current Smoker NA - NA Sex Assigned At : Social History Observation Description Sex Assigned At Unknown Tobacco Use/Smoking Question Answer Notes Patient is a current smoker How often do you smoke cigarettes? every day How many cigarettes a day do you smoke? 11-20 How soon after you wake up d o you smoke your first cigarette? within 5 minutes Are you interested in quitting? Thinking about q uitting PROBLEMS Problem Type ICD Code Onset Dates Problem Status W/U Status Risk SNOMED Code Notes Problem Encounter for screening for malignant neoplasm of colon (Z12.11) Active confirmed 327305039 Problem Diverticulosis of large intestine without perforation or abscess without bleeding (K57.30) Active confirmed Diverticul ar disease of colon (927110109) Problem Gastroesophageal reflux disease without esophagitis (K21.9) Active confirmed 012985889 Problem Barretts esophagus without dysplasia (K22.70) Active confirmed 171508340 Problem Gastric polyps (K31.7) Active confirmed Benign neoplasm of stomach (92080735) Problem Hx of adenomatous colonic polyps (Z86.010) Active confirmed 645925510 Problem 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) Active confirmed 243303397 VITAL SIGNS Blood pressure diastolic 00 mm Hg 07/07/2024 Height 71.50 in 07/07/2024 Blood pressure systolic 00 mm Hg 07/07/2024 Weight 250 lbs 07/07/2024 BMI 34.38 kg/m2 07/07/2024 Encounters Encounter Location Date Provider Diagnosis [facility] [address] [place] [phone] 10/07/2024 Mj Mendoza Colon cancer screeni ng Z12.11 ; Colon polyps K63.5 ; Diverticulosis of large intestine without perforation or abscess without bleeding K57.30 ; Other hemorrhoids K64.8 ; Conley''s esophagus without dysplasia K22.70 ; Hiatal hernia K44.9 ; Gastric polyps K31.7 and Gastroesophageal reflux disease without esophagitis K21.9 [facility] [address] [place] [address] 07/07/2024 Mj Mendoza Barretts esophagus without dysplasia K22.70 ; Gastroesophageal reflux disease without esophagitis K21.9 ; Hx of adenomatous colonic polyps Z86.010 and Encounter for screening for malignant neoplasm of colon Z12.11 [facility] [address] [place] [address] 10/07/2024 Mj Mendoza [facility] [address] [place] [phone] 10/08/2024 Mj Mendoza [facility] [address] [place] [address] 01/06/2025 Mj Mendoza ASSESSMENTS Encounter Date Diagnosis Assessment Notes Treatment Notes Treatment Clinical Notes 10/07/2024 Colon cancer screeni ng (ICD-10 - Z12.11) 10/07/2024 Colon polyps (ICD-10 - K63.5) 07/07/2024 Gastroesophageal ref lux disease without esophagitis (ICD-10 - K21.9) 07/07/2024 Barretts esophagus without dysplasia (ICD-10 - K22.70) 10/07/2024 Diverticulosis of la rge intestine without perforation or abscess without bleeding (ICD-10 - K57.30) 07/07/2024 Hx of adenomatous colonic polyps (ICD-10 - Z86.010) 10/07/2024 Other hemorrhoids (ICD-10 - K64.8) 07/07/2024 Encounter for screen ing for malignant neoplasm of colon (ICD-10 - Z12.11) 10/07/2024 Conley''s esophagus without dysplasia (ICD-10 - K22.70) 10/07/2024 Hiatal hernia (ICD-1 0 - K44.9) 10/07/2024 Gastric polyps (ICD- 10 - K31.7) 10/07/2024 Gastroesophageal ref lux disease without esophagitis (ICD-10 - K21.9) PLAN OF TREATMENT Pending Test Test Name Order Date GI BIOPSY 03/25/2019 Pathology 10/07/2024 Future Test Test Name Order Date UPPER GI ENDOSCOPY 10/25/2015 UPPER GI ENDOSCOPY 12/10/2018 COLONOSCOPY 12/10/2018 UPPER GI ENDOSCOPY 07/07/2024 COLONOSCOPY 07/07/2024 Next Appt Details Provider Name:Mj Mendoza , 02/11/2025 09:40:00 AM, [address] [place] [address], [address], [place], [address], Insurance Providers Payer Name Payer Address Payer Phone Subscriber Number Group Number Insured Name Patient Relationship to Insured Coverage Start Date Coverage End Date [facility] Medicare Advantage Plan [address] [address] [place] [address] [id number] FLORINDA RUSS Self - patient is the insured MEDICAL (GENERAL) HISTORY Medical History History ICD Code Denies AL,DM,CVA,Lung disease,renal dise ase GERD---EGD in 04/2012 and 2014--with a mod-sized HH and Conley's esophagus--no dysplasia Colonoscopy in 04/2012-tubular adenomas r emoved Sleep apnea--not using CPAP--insurance w ouldn't pay for it Hyperlipidemia Colonoscopy in March of 2019 w ith multiple small tubular adenomas and hyperplastic polyps removed Upper endoscopy in March 19 with some esophagitis and small area of Conley's esophagus with biopsies negative for dysplasia. A moderate-sized hiatal hernia was noted Arthritis in both knees Surgical History Surgery Date(Month/Year) Umbilical hernia Vocal cord polyps Right knee surgery
--- OUTSIDE RECORDS SUMMARY | 2025-01-26 11:50 | XMS_ITS ---
Author Organization [facility] Address [address] [place] [address] Care Team Providers Care Site Acquisition Manager Name Role Phone Po Parish ODELL Primary Care Provider Mj Negrete [phone] REASON FOR VISIT New Insurance Encounters Encounter Location Date Provider Diagnosis [facility] [address] [place] [address] 01/06/2025 Mj Mendoza PLAN OF TREATMENT Next Appt Details Provider Name:Mj Mendoza , 02/11/2025 09:40:00 AM, [address], [address], [place], [address],
== END 2025-01-26 10:46 | disposition home or self-care (01) ==
PROVIDERS: PCP Internal Medicine
DX: Z01.818 Encounter for other preprocedural examination (principal)

== ENCOUNTER → 2025-01-26 09:56 | Outpatient (BNVA) | payer MEDICARE, SELFPAY | PROVIDERS: PCP Internal Medicine | DX: Z01.818 Encounter for other preprocedural examination (principal) | CPT/HCPCS: 99212 ==

== ENCOUNTER → 2025-02-02 08:50 | Outpatient (BNVA) | payer MEDICARE, SELFPAY | PROVIDERS: PCP Internal Medicine | DX: Z01.818 Encounter for other preprocedural examination (principal) ==

== ENCOUNTER → 2025-02-08 12:18 | Outpatient (BNV) | payer MEDICARE, SELFPAY | PROVIDERS: PCP Internal Medicine; Visit Provider Internal Medicine Cardiovascular Disease | DX: G47.33 Obstructive sleep apnea (adult) (pediatric) (principal); Z01.810 Encounter for preprocedural cardiovascular examination | CPT/HCPCS: 93010 ==

== ENCOUNTER 2025-02-22 08:43 | Outpatient (REF) | payer MEDICARE, SELFPAY ==
--- NOTE | ~2025-02-22 | XR_ITS ---
EXAMINATION: XR CHEST 2 VIEWS HISTORY: R05.9 - Cough, unspecified COMPARISON: Comparison is made with the prior examination dated 06/10/2008. FINDINGS: PA and lateral views of the chest are submitted. The lungs are expanded and clear. There is no pleural effusion, pneumothorax, or pulmonary vascular congestion. The heart is normal in size. The bones are intact. XR/XR chest 2V IMPRESSION: No acute cardiopulmonary abnormality. Electronically signed by: Mj Horn MD 02/22/2025 12:37 PM EDT
== END 2025-02-22 08:44 | disposition home or self-care (01) ==
LOC: HO.XRAY 08:43
PROVIDERS: PCP Internal Medicine; Referring Provider Orthopaedic Surgery; Visit Provider Nurse Practitioner Family
DX: Z01.811 Encounter for preprocedural respiratory examination (principal); M17.11 Unilateral primary osteoarthritis, right knee; R05.9 Cough, unspecified; R91.8 Other nonspecific abnormal finding of lung field
CPT/HCPCS: 71046; 99212

== ENCOUNTER 2025-02-22 08:43 | Outpatient (AMB) | payer MEDICARE, SELFPAY ==
--- NOTE | 2025-02-22 08:51 | A.OFFVIS_ITS ---
Vital Signs 02/22/25 08:52 Height 5 ft 9 in Weight 251 lb 5.231 oz BMI 37.1 BP 142/78 H Blood Pressure Location Lt brachial Position Sitting Pulse 91 Pulse Source Pulse Oximeter Pulse Oximetry (%) 95 Oxygen Delivery Method Room Air Intake Visit Reasons: PULM Clearance- R TKA w/Dr. 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 Test Engineer: Firmware Test Engineer offered & declined Accompanied by: Self / Same As Patient Allergies No Known Allergies Allergy (Verified 02/22/25 08:55) Medication List - Last Reconciled 02/22/25 by Beth Mora LPN cholecalciferol (vitamin D3) 50 mcg PO BEDTIME cyanocobalamin (vitamin B-12) 1,000 mcg PO BEDTIME diclofenac sodium 1% (Voltaren Arthritis Pain) 4 grams topical QID folic acid 1 mg PO BEDTIME Lactobacillus acidophilus (Probiotic) 10,000 mmu cells PO QAM omeprazole 40 mg PO QAM simvastatin 10 mg PO BEDTIME 90 days walker Folding front wheeled walker HPI HPI PULM Clearance- R TKA w/Dr. Waite 03/08/25: Details: Samy is a pleasant 65 year old male, current smoker, with 80+ pack year history with underlying pulmonary nodules, HARSHA noncompliant with CPAP, GERD, Conley's esophagus and osteoarthritis of right knee. He was referred by Dr. Jay for p reoperative evaluation for upcoming right total knee arthroplasty scheduled for 03/08/25. At this time he reports intermittent dry cough otherwise denies dyspnea, chest tightness or wheezing. He does not have any respiratory medications. He reports h/o asthma as a child, never requiring intubations/hospitalizations related to respiratory distress. He denies any need for supplemental oxygen and has had no issues with anesthesia prior. He continues to smoke 1 pdd, previously 2 ppd x 40 years, recently decreased over the last 6 months. He is motivated to cut down however does not feel he is going to completely quit. He has never tried NRT previously. Patient enrolled in the lung screening program given smoking history, LDCT 01/2024 read as a RADS4A for increasing pulmonary nodule of RUL 4mm to 6mm, however downgraded after discussion at multidisciplinary conference to RADS3 with recommendation for 6 month LDCT. Unfortunately patient never attended and this is still pending. 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 He denies any pertinent family history. He also has h/o HARSHA, unknown severity, and not interested in repeat sleep study. [facility] Medical History (Updated 02/22/25 @ 09:24 by Milvia Scott NP) Arthritis Nicotine dependence, cigarettes, uncomplicated Impaired glucose tolerance Compression fracture of T6 vertebra Pulmonary nodule GERD (gastroesophageal reflux disease) Cervical compression fracture Lumbar disc herniation Obstructive sleep apnea Obesity (BMI 30-39.9) Hypercholesterolemia Vitamin D deficiency Tubular adenoma of colon Conley's esophagus Renal calculi Surgical History (Updated 02/08/25 @ 12:00 by Radha Roche RN) History of right knee surgery History of esophagogastroduodenoscopy (EGD) History of colonoscopy History of ventral hernia repair Social History Housing: House Are you a primary director of home care hospice to a significant other at home: No Do you presently have visiting nurse or other home services: No Alcohol intake: current Comment: once a week 6 drinks Patient Tobacco Use Status: Current everyday Tobacco user Tobacco use type: Cigarette Cigarette Packs Per Day: 1 Cigarettes Per Day: 20.0 Years Smoked: 52 e-Cigarette/Vaping Use: Never Used Second Hand Smoke Exposure: Yes Current occupational status: employed Cognitive needs: No Hearing needs: No Vision needs: Yes Review of Systems Const Denies chills, Denies excessive sweating, Denies fever(s), Denies headache(s) and Denies night sweats Eyes Denies dry eyes, Denies irritation and Denies itchy eyes ENT Reports Normal hearing present, Denies headache(s), Denies nasal congestion, Denies nasal discharge, Denies post nasal drip and Denies sore throat Card Denies chest pain, Denies chest pain at rest, Denies chest pain with activity, Denies claudication, Denies leg edema, Denies dyspnea, Denies dyspnea on exertion, Denies orthopnea and Denies paroxysmal nocturnal dyspnea Resp Denies chest congestion, Denies excessive phlegm production, Denies pain on inspiration, Denies pain with cough, Denies dyspnea, Denies dyspnea on exertion, Denies stridor and Denies wheezing Musc Denies myalgias Neuro Reports Normal hearing present and Denies headache(s) Endo Denies excessive sweating Kyrie/Lymph Denies lymphadenopathy Aller/Immun Denies itchy eyes, Denies seasonal rhinorrhea and Denies wheezing Physical Exam Vital Signs: Last Vital Signs Pulse 91 02/22/25 08:52 BP 142/78 H 02/22/25 08:52 Pulse Ox 95 02/22/25 08:52 Oxygen Delivery Method Room Air 02/22/25 08:52 BMI result Body Mass Index 37.1 Const General: cooperative, healthy appearing, comfortable, no acute distress, well developed and alert Nutritional Appearance: obese Orientation/consciousness: patient oriented x3 Limitations: no limitations HEENT Head: Yes normal to inspection, Yes normocephalic and Yes atraumatic Ears: hearing grossly normal bilaterally and external ears normal Eyes General: appearance normal, both eyes and all related structures Eyelids: Yes eyelids normal Sclerae: sclerae normal EOM: EOMs intact bilaterally Neck Neck: Yes normal visual inspection and Yes no lymphadenopathy Lymphatic: no lymphadenopathy noted Chest Chest palpation & inspection: normal inspection of the chest Resp Effort & Inspection: normal respiratory effort, able to speak in complete sentences, no audible wheezes, no cough, no stridor, not tachypneic, no tripod positioning and no use of accessory muscles Auscultation: clear to auscultation bilaterally Cardio Jugular venous distension: no JVD Rate: regular rate Rhythm: regular rhythm Skin Other: warm, dry General skin exam: no rashes or lesions noted Neuro General: patient oriented x3 Cranial nerves: Yes Normal hearing present Cognition (Neuro): normal cognition Gait exam (Neuro): Normal gait present Extrem General: Yes normal to inspection, Yes capillary refill normal, Yes no clubbing, cyanosis or edema and Yes no pedal edema Psych Appearance: grossly normal and well kempt Speech and movement: Normal speech and movement present and Clear speech present Affect: normal affect Attitude: cooperative Thought process: Normal thought process present Thought content: Normal thought content present Insight: Good insight present (Psych) Judgement: Good judgement present (Psych) Assessment & Plan Assessment & Plan (1) COPD (chronic obstructive pulmonary disease): Code(s): J44.9 - Chronic obstructive pulmonary disease, unspecified Category: Medical (2) Cough: Code(s): R05.9 - Cough, unspecified Category: Medical (3) Obstructive sleep apnea: Comment: no cpap Code(s): G47.33 - Obstructive sleep apnea (adult) (pediatric) Category: Medical (4) Nicotine dependence, cigarettes, uncomplicated: Code(s): F17.210 - Nicotine dependence, cigarettes, uncomplicated Category: Medical (5) Encounter for preoperative pulmonary examination: Code(s): Z01.811 - Encounter for preprocedural respiratory examination Category: Medical Plan Samy presents for preoperative pulmonary evaluation for proposed right knee arthroplasty on 03/[address] Jay. At this time patient reports intermittent dry cough otherwise denies respiratory symptoms. He denies any recent exacerbations for likely COPD or prior need for supplemental oxygen. Will send for PFT to assess severity of obstructive defect. Will also send for CXR today and will schedule chest CT to evaluate pulmonary nodules. He was supposed to have LDCT in 08/18 to assess growing RUL pulmonary nodule however did not follow through with appt. Smoking cessation reviewed and patient agreeable to prescription of NRT however unsure if he will attempt to decrease smoking on his own. Once PFT and CXR performed, will be able to risk stratify for upcoming surgery. All questions were answered and patient is in agreement of plan. Will follow up to review results or sooner if needed. Orders: Orders PFT pulmonary function test Today J44.9 - Chronic obstructive pulmonary disease, unspecified XR chest 2V Today R05.9 - Cough, unspecified CT chest wo IV con Today R91.8 - Other nonspecific abnormal finding of lung field Medications: New nicotine apply 1-21 mg NICOTINE PATCH daily for 28 days; follow with 1-14 mg PATCH daily for 14 days, then 1-7mg PATCH daily for 14 days transdermal 56 patches 0RF nicotine (polacrilex) (Nicorette) 2 mg buccal Q2H 100 ea 0RF Coding Level of Care Code New Pt Level 4 (91373) Diagnoses COPD (chronic obstructive pulmonary disease) J44.9 Cough R05.9 Obstructive sleep apnea G47.33 Nicotine dependence, cigarettes, uncomplicated F17.210 Encounter for preoperative pulmonary examination Z01.811
[2025-02-22 08:52] VITALS: BP 142/78; PULSE 91; O2SAT 95; BMI 37.1
== END 2025-02-22 09:18 | disposition home or self-care (01) ==
LOC: HO.HPS 08:44
PROVIDERS: PCP Internal Medicine; Referring Provider Orthopaedic Surgery; Visit Provider Nurse Practitioner Family
DX: J44.9 Chronic obstructive pulmonary disease, unspecified (principal); G47.33 Obstructive sleep apnea (adult) (pediatric); F17.210 Nicotine dependence, cigarettes, uncomplicated; Z01.811 Encounter for preprocedural respiratory examination
CPT/HCPCS: 99214

== ENCOUNTER → 2025-02-22 09:28 | Outpatient (BNV) | payer MEDICARE, SELFPAY | PROVIDERS: PCP Internal Medicine; Referring Provider Orthopaedic Surgery; Visit Provider Radiology Diagnostic Radiology | DX: R05.9 Cough, unspecified (principal) | CPT/HCPCS: 71046 ==

== ENCOUNTER 2025-02-25 11:00 | Outpatient (REF) | payer MEDICARE, SELFPAY ==
[2025-02-25 12:09] VITALS: PULSE 83; O2SAT 97
--- OUTSIDE RECORDS SUMMARY | 2025-02-25 12:21 | XMS_ITS ---
Author Organization [facility] Address [address] [place] [id number] Care Team Providers Care Coagulating Bath Mixer Name Role Phone Parish Son MD Primary Care Provider Mj Negrete [phone] REASON FOR VISIT New Insurance Encounters Encounter Location Date Provider Diagnosis [facility] [address] [place] [id number] 01/06/2025 Mj Mendoza Plan Of Treatment No Information Progress Notes * FLORINDA RUSSDOB:1960 (64 yo M)Acc No.[id number]:01/06/2025 Patient:?FLORINDA RUSS :1960???Age:64 Y???Sex:Male [address]:[address] [place] [address], [id number] * true * Date:? Generated for Harini parnell/Kt/eTransmitting on:?02/25/2025 12:21 PM EDT
--- OUTSIDE RECORDS SUMMARY | 2025-02-25 12:22 | XMS_ITS | Patient Health Record ---
Author Organization [facility] Address [address] [place] [id number] Care Team Providers Care Balancer Name Role Phone Parish Son MD Primary Care Provider Mj Negrete [phone] Allergies No Known Allergies Results Component Value Reference Range Notes Pathology Reviewed date:02/11/2025 09:52:09 AM Interpretation: Performing Lab:[facility], [address] [place] [phone] Notes/Report: Name: FlavioSamy III Age/Sex: 64/M : 1960 Unit#: [id number] Attend Dr: Mj Mendoza MD Re10/07/24 Status : [facility] Disch: SPEC : [id number] RECD : 10/07/24 STATUS: DAKOTAH FORMAN NUM: [id number] GEOFF: 10/07/24-[address] [facility] [address]: Mj Mendoza MD ENTERED: 10/07/24 57 SP TYPE: Surgical OTHR DR: Parish Son MD ORDERED: HE Stain/3, Gross Micro L4/2, Eso bx BA w/exc COMMENTS: 8 unstaine d slides (Part B) sent to [employer] for TissueCypher on 10/09/24. Addendum Addendum 1 Entered: 10/26/24 (B): TissueCypher results: Risk Class:? Low Risk Score:? 0.6 (range 0 ? 10) 5-year probability o f progression:? 0.40% See entire scanned r eport in EMR - report/pathology section (camera icon). Addendum Signed ____ __(signature on file) Emy Anthony 10/26/24 0901 Diagnosis A. Colon, at 30 cm, polyp: Tubular adenoma, with hemorrhage and misplaced glands, completely excised; negative for high-grade dysplasia and carcinoma. B. Esophagus, 34-35 cm, biopsy: Squamous mucosa with active erosive esophagitis, and columnar mucosa with mild chronic active inflammation and intestinal metaplasia consistent with Sanchez ett's mucosa; negative for dysplasia. Comment: (B): Block sent for TissueCypher testing; addendum to follow. Clinical History Pre-Op Dx: Screening , Conley's, GERD, hx colonic polyps Post-Op Dx: Colon po lyp, diverticulosis, hiatal hernia, Conley's, reflux Microscopic Description Microscopic sections reviewed. CONTINUED ON NEXT PAGE Name: Samy Muniz III Age/Sex: 64/M : 1960 Unit#: [id number] Attend Dr: Mj Mendoza MD Re10/07/24 Status : [facility] Location: [facility] Disch: SPEC : [id number] RECD : 10/07/24-1253 STATUS: DAKOTAH FORMAN NUM: [id number] GEOFF: 10/07/24-[address] [facility] [address]: Mj Mendoza MD ENTERED: 10/07/24-12 57 SP TYPE: Surgical OTHR DR: Parish Son MD ORDERED: HE Stain/3, Gross Micro L4/2, Eso bx BA w/exc COMMENTS: 8 unstaine d slides (Part B) sent to [employer] for TissueCypher on 10/09/24. Material Received A. Polyp @ 30 B. Esophagus 34-35 c m (History of Conley's) Gross Description Received in two parts. Part A: Received in formalin labeled ?polyp at 30? is a 1.0 x 0.6 x 0.5 cm velvety, hemphill- pink pedunculated po lyp with an attached 0.5 cm in length and 0.5 cm in diameter hemphill stalk. The resected base is and the specimen is sectioned and entirely submitted in a cassette labeled A. Part B: Received in formalin labeled ?esophagus 34-35 cm, history of Conley's? are 7 hemphill- white and hemphill-pink i rregular tissue fragments ranging from 0.1-0.25 cm, submitted in toto in a cassette labeled B. CEDS Copies To: Parish Son MD [facility] [address] [place] [address] Mj Mendoza MD [facility] [address] [place] [address] Signed (si gnature on file) Emy Milton 10/08/24 1123 END OF REPORT Reason For Referral No Information Medications Medication SIG (Take, Route, Fr equency, Duration) Notes Start Date End Date Status Omeprazole 40 MG 1 Orally Once a day every morning skilled nursing for 90 days 10/07/2024 Ac tive Folic Acid 1 MG 1 tablet Orally Once a day for 30 day(s) Active Vitamin B12 1000 MCG 1 tablet Orally Onc e a day for 30 day(s) Active Vitamin D 1000 UNIT 1 capsule Orally Onc e a day for 30 day(s) Active Simvastatin 10 MG 2 tablets in the daniel liv Orally Once a day Active Immunizations Vaccine Route Administration Date Status Comme nts Influenza Unknown 08/05/2018 Administered Social History Tobacco Use: Social History Observation Description Date Details (start date - stop date) Current Smoker NA - NA Tobacco Use/Smoking Question Answer Notes Patient is a current smoker How often do you smoke cigarettes? every day How many cigarettes a day do you smoke? 11-20 How soon after you wake up d o you smoke your first cigarette? within 5 minutes Are you interested in quitting? Thinking about q uitting Section Notes: Smoker; 1 beer on weekdays a nd 6-12 beers on w/e Smoker; 1 beer on weekdays a nd 6-12 beers on w/e Smoker; only occasional beer Smoker 1ppd; only occasional beer Smoker 1ppd; only occasional beer Smoker 1ppd; only occasional beer Problems Problem Type SNOMED Code ICD Code Onset Dates Problem Status W/U Status Risk Notes Problem 099138589 Encounter for screening for malignant neoplasm of colon (Z12.11) Active confirmed Problem Diverticular disease of colon (859909540) Diverticulosis of large intestine without perforation or abscess without bleeding (K57.30) Active confirmed Problem 813004716 Gastroesophageal reflux disease without esophagitis (K21.9) Active confirmed Problem 578250386 Barretts esophag us without dysplasia (K22.70) Active confirmed Problem Benign neoplasm of stomach (16802452) Gastric polyps (K31.7) Active confirmed Problem 507918333 Hx of adenomatou s colonic polyps (Z86.010) Active confirmed Problem 238246627 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) Active confirmed Vital Signs Blood pressure diastolic 11 mm Hg 02/11/2025 Height 71.50 in 02/11/2025 Blood pressure systolic 111 mm Hg 02/11/2025 Weight 248 lbs 02/11/2025 BMI 34.1 kg/m2 02/11/2025 Encounters Encounter Location Date Provider Diagnosis [facility] [place] [facility] [address], [place] [id number] 10/07/2024 Mj Mendoza Colon cancer screeni Z12.11 ; Colon polyps K63.5 ; Diverticulosis of large intestine without perforation or abscess without bleeding K57.30 ; Other hemorrhoids K64.8 ; Conley''s esophagus without dysplasia K22.70 ; Hiatal hernia K44.9 ; Gastric polyps K31.7 and Gastroesophageal reflux disease without esophagitis K21.9 [facility] [address] [place] [address] 07/07/2024 Mj Mendoza Barretts esophagus without dysplasia K22.70 ; Gastroesophageal reflux disease without esophagitis K21.9 ; Hx of adenomatous colonic polyps Z86.010 and Encounter for screening for malignant neoplasm of colon Z12.11 [facility] [address] [place] [address] 02/11/2025 Mj Mendoza Barretts esophagus without dysplasia K22.70 ; Gastroesophageal reflux disease without esophagitis K21.9 ; Hx of adenomatous colonic polyps Z86.010 and Encounter for screening for malignant neoplasm of colon Z12.11 [facility] [address] [place] [phone] 10/07/2024 Mj Mendoza [facility] [address] [place] [phone] 10/08/2024 Mj Mendoza [facility] [address] [place] [phone] 01/06/2025 Mj Mendoza Assessments Encounter Date Diagnosis (ICD Code) Assessment Notes Treatment Notes Treatment Clinical Notes Section Notes 10/07/2024 Colon cancer screening (ICD-10 - Z12.11) 10/07/2024 Colon polyps (ICD-10 - K63.5) 07/07/2024 Gastroesophageal reflux disease without esophagitis (ICD-10 - K21.9) Overall, Samy appears well from a GI standpoint. His reflux seems to be stable on his evening dose of omeprazole. We did review how smoking will certainly be detrimental both for his overall health and reflux in particular. I did recommend a followup upper endoscopy in regard to the Conley's esophagus. We did review the rationale for that in regard to the theoretical increased risk of esophageal cancer. I did advise him to continue his omeprazole long-term. I also recommended a colonoscopy on the same day for followup of his history of tubular adenomas of the colon given his last colonoscopy being over 5 years ago. We did review the rationale for that regard to colon cancer prevention. Full consent was obtained from him for both procedures, including risks of bleeding and perforation. The procedures will be done monitored anesthesia care. Samy was comfortable with this plan. Thank you again for allowing me to participate in Samy's care. I shall continue to keep you advised of his progress. 07/07/2024 Barretts esophagus without dysplasia (ICD-10 - K22.70) Overall, Samy appears well from a GI standpoint. His reflux seems to be stable on his evening dose of omeprazole. We did review how smoking will certainly be detrimental both for his overall health and reflux in particular. I did recommend a followup upper endoscopy in regard to the Conley's esophagus. We did review the rationale for that in regard to the theoretical increased risk of esophageal cancer. I did advise him to continue his omeprazole long-term. I also recommended a colonoscopy on the same day for followup of his history of tubular adenomas of the colon given his last colonoscopy being over 5 years ago. We did review the rationale for that regard to colon cancer prevention. Full consent was obtained from him for both procedures, including risks of bleeding and perforation. The procedures will be done monitored anesthesia care. Samy was comfortable with this plan. Thank you again for allowing me to participate in Samy's care. I shall continue to keep you advised of his progress. 02/11/2025 Barretts esophagus without dysplasia (ICD-10 - K22.70) Repeat upper endo in 09/2027 Continue the daily 40mg omeprazole .Overall, Samy appears to be doing well from a GI standpoint. We did review the findings on his recent procedures and I advised him of the need for a follow-up upper endoscopy and colonoscopy in September of 2027 as a 3-year follow-up. I did advise him to continue his daily omeprazole. I did advise him to certainly stop smoking for his overall health, as well as more specifically for his reflux and Conley's esophagus. If things remain well he would otherwise see me as needed. I did advise him to certainly call if he has any problems or questions I can be of assistance with in the interim. Samy was comfortable with this plan Thank you again for allowing me to participate in Samy's care. I shall continue to keep you advised of his progress. 10/07/2024 Diverticulosis of large intestine without perforation or abscess without bleeding (ICD-10 - K57.30) 07/07/2024 Hx of adenomatous colonic polyps (ICD-10 - Z86.010) Overall, Samy appears well from a GI standpoint. His reflux seems to be stable on his evening dose of omeprazole. We did review how smoking will certainly be detrimental both for his overall health and reflux in particular. I did recommend a followup upper endoscopy in regard to the Conley's esophagus. We did review the rationale for that in regard to the theoretical increased risk of esophageal cancer. I did advise him to continue his omeprazole long-term. I also recommended a colonoscopy on the same day for followup of his history of tubular adenomas of the colon given his last colonoscopy being over 5 years ago. We did review the rationale for that regard to colon cancer prevention. Full consent was obtained from him for both procedures, including risks of bleeding and perforation. The procedures will be done monitored anesthesia care. Samy was comfortable with this plan. Thank you again for allowing me to participate in Samy's care. I shall continue to keep you advised of his progress. 02/11/2025 Gastroesophageal reflux disease without esophagitis (ICD-10 - K21.9) .Overall, Samy appears to be doing well from a GI standpoint. We did review the findings on his recent procedures and I advised him of the need for a follow-up upper endoscopy and colonoscopy in September of 2027 as a 3-year follow-up. I did advise him to continue his daily omeprazole. I did advise him to certainly stop smoking for his overall health, as well as more specifically for his reflux and Conley's esophagus. If things remain well he would otherwise see me as needed. I did advise him to certainly call if he has any problems or questions I can be of assistance with in the interim. Samy was comfortable with this plan Thank you again for allowing me to participate in Samy's care. I shall continue to keep you advised of his progress. 10/07/2024 Other hemorrhoids (ICD-10 - K64.8) 07/07/2024 Encounter for screening for malignant neoplasm of colon (ICD-10 - Z12.11) Overall, Samy appears well from a GI standpoint. His reflux seems to be stable on his evening dose of omeprazole. We did review how smoking will certainly be detrimental both for his overall health and reflux in particular. I did recommend a followup upper endoscopy in regard to the Conley's esophagus. We did review the rationale for that in regard to the theoretical increased risk of esophageal cancer. I did advise him to continue his omeprazole long-term. I also recommended a colonoscopy on the same day for followup of his history of tubular adenomas of the colon given his last colonoscopy being over 5 years ago. We did review the rationale for that regard to colon cancer prevention. Full consent was obtained from him for both procedures, including risks of bleeding and perforation. The procedures will be done monitored anesthesia care. Samy was comfortable with this plan. Thank you again for allowing me to participate in Samy's care. I shall continue to keep you advised of his progress. 02/11/2025 Hx of adenomatous colonic polyps (ICD-10 - Z86.010) Repeat colonoscopy in 09/2027 .Overall, Samy appears to be doing well from a GI standpoint. We did review the findings on his recent procedures and I advised him of the need for a follow-up upper endoscopy and colonoscopy in September of 2027 as a 3-year follow-up. I did advise him to continue his daily omeprazole. I did advise him to certainly stop smoking for his overall health, as well as more specifically for his reflux and Conley's esophagus. If things remain well he would otherwise see me as needed. I did advise him to certainly call if he has any problems or questions I can be of assistance with in the interim. Samy was comfortable with this plan Thank you again for allowing me to participate in Samy's care. I shall continue to keep you advised of his progress. 10/07/2024 Conley''s esophagus without dysplasia (ICD-10 - K22.70) 02/11/2025 Encounter for screening for malignant neoplasm of colon (ICD-10 - Z12.11) .Overall, Samy appears to be doing well from a GI standpoint. We did review the findings on his recent procedures and I advised him of the need for a follow-up upper endoscopy and colonoscopy in September of 2027 as a 3-year follow-up. I did advise him to continue his daily omeprazole. I did advise him to certainly stop smoking for his overall health, as well as more specifically for his reflux and Conley's esophagus. If things remain well he would otherwise see me as needed. I did advise him to certainly call if he has any problems or questions I can be of assistance with in the interim. Samy was comfortable with this plan Thank you again for allowing me to participate in Samy's care. I shall continue to keep you advised of his progress. 10/07/2024 Hiatal hernia (ICD-10 - K44.9) 10/07/2024 Gastric polyps (ICD-10 - K31.7) 10/07/2024 Gastroesophageal reflux disease without esophagitis (ICD-10 - K21.9) Plan Of Treatment Pending Test Test Name Order Date GI BIOPSY 03/25/2019 Future Test Test Name Order Date UPPER GI ENDOSCOPY 10/25/2015 UPPER GI ENDOSCOPY 12/10/2018 COLONOSCOPY 12/10/2018 UPPER GI ENDOSCOPY 07/07/2024 COLONOSCOPY 07/07/2024 Insurance Providers Payer Name Payer Address Payer Phone Subscriber Number Group Number Insured Name Patient Relationship to Insured Coverage Start Date Coverage End Date [facility] Medicare Advantage Plan [address] [address] [place] [address] [id number] SAMY MUNIZ Self - patient is the insured Medical (General) History Medical History History ICD Code Denies OR,DM,CVA,Lung disease,renal dise ase GERD---EGD in 04/2012 and [...] hernia was noted Arthritis in both knees Upper endoscopy in September 2024 revealed his Conley's esophagus and hiatal hernia, as well as some associated mild esophagitis. Biopsies were negative for dysplasia. His omeprazole was increased from 20 to 40 mg/day. He did have a Cypher study with a low probability reading for progression of dysplasia within the Conley's esophagus. Colonoscopy 09/2024 with a tubular adeno ma removed Surgical History Surgery Date(Month/Year) Right knee replacement scheduled 02/2025 Right knee surgery Vocal cord polyps Umbilical hernia
--- OUTSIDE RECORDS SUMMARY | 2025-02-25 12:22 | XMS_ITS ---
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 Name Role Phone Parish Son MD Primary Care Provider Mj Negrete [phone] Allergies No Known Allergies REASON FOR VISIT Patient presents today for barretts esophagus Medications Medication SIG (Take, Route, Fr equency, Duration) Notes Start Date End Date Status Omeprazole 40 MG 1 Orally Once a day every morning [facility] for 90 days 10/07/2024 Ac tive Folic [...] daniel liv Orally Once a day Active Social History Tobacco Use: Social History Observation Description Date Details (start date - stop date) Current Smoker NA - NA Tobacco Use/Smoking Question Answer Notes Patient is a current smoker How often do you smoke cigarettes? every day How many cigarettes a day do you smoke? -20 How soon after you wake up d o you smoke your first cigarette? within 5 minutes Are you interested in quitting? Thinking about q uitting Section Notes: Smoker 1ppd; only occasional beer Vital Signs Blood pressure systolic 111 mm Hg 02/12/20 25 Blood pressure diastolic 11 mm Hg 025 Height 71.50 in 02/11/2025 Weight 248 lbs 02/11/2025 BMI 34.1 kg/m2 02/11/2025 Encounters Encounter Location Date Provider Diagnosis [facility] [address] [place] [phone] 02/11/2025 Mj Mendoza Barretts esophagus without dysplasia K22.70 ; Gastroesophageal reflux disease without esophagitis K21.9 ; Hx of adenomatous colonic polyps Z86.010 and Encounter for screening for malignant neoplasm of colon Z12.11 Assessments Encounter Date Diagnosis (ICD Code) Assessment Notes Treatment Notes Treatment Clinical Notes Section Notes 02/11/2025 Barretts esophagus without dysplasia (ICD-10 - K22.70) Repeat upper endo in 09/2027 Continue the daily 40mg omeprazole .Overall, Florinda appears to be doing well from a [...] be of assistance with in the interim. Florinda was comfortable with this plan Thank you again for allowing me to participate in Florinda's care. I shall continue to keep you advised of his progress. 02/11/2025 Gastroesophageal reflux disease without esophagitis (ICD-10 - K21.9) .Overall, Florinda appears to be doing well from a [...] be of assistance with in the interim. Florinda was comfortable with this plan Thank you again for allowing me to participate in Florinda's care. I shall continue to keep you advised of his progress. 02/11/2025 Hx of adenomatous colonic polyps (ICD-10 - Z86.010) Repeat colonoscopy in 09/2027 .Overall, Florinda appears to be doing well from a [...] be of assistance with in the interim. Florinda was comfortable with this plan Thank you again for allowing me to participate in Florinda's care. I shall continue to keep you advised of his progress. 02/11/2025 Encounter for screening for malignant neoplasm of colon (ICD-10 - Z12.11) .Overall, Florinda appears to be doing well from a [...] be of assistance with in the interim. Florinda was comfortable with this plan Thank you again for allowing me to participate in Florinda's care. I shall continue to keep you advised of his progress. Plan Of Treatment Treatment Notes Assessment Notes Barretts esophagus without dysplasia Repeat upper endo in 09/2027 Continue the daily 40mg omeprazole Hx of adenomatous colonic polyps Repeat colonoscopy in 09/2027 Next Appt Details Follow Up: prn, Reason: Progress Notes * FLORINDA RUSSDOB:1960 (65 yo M)Acc No.[id number]:02/11/2025 Progress Notes Patient:?FLORINDA RUSS Provider:?Mj Mendoza MD :1960???Age:65 Y???Sex:Male Nathan e:02/11/2025 Address:[address] [place], [place] [id number] Pcp:Parish Son MD Subjective: * Chief Complaints: * ???Patient presents today fo r barretts esophagus * HPI: ???incontinence:? I saw Florinda in follow-up today in regard to his chronic gastroesophageal reflux with associated Conley's esophagus, and personal history of tubular adenomas of the colon. I last saw Florinda in September 2024. At that time he underwent both an upper endoscopy and colonoscopy. His colonoscopy revealed a fairly large tubular adenoma that was removed. There was no evidence of any dysplasia nor malignancy within the polyp. He also had an upper endoscopy at that time revealing his known hiatal hernia and Conley's esophagus, but there is no evidence of any dysplasia within the Conley's esophagus biopsies. There was some associated inflammation and I did increase his omeprazole from 20 mg to 40 mg at that time. Since those procedures he has been feeling well from a GI standpoint. He enjoys a good appetite and presently denies any significant heartburn, dysphagia, early satiety, nausea, nor vomiting. His bowel movements have been regular and without any signs of bleeding. He denies any abdominal pain, signs of jaundice, nor any unintentional weight loss. * ROS:?General/Constitutional:?Change in appetite?denies.?Chills?denies.?Fatigue?denies.?Ophthalmologic:?Comments?all negative.?ENT:?Comments?all negative.?Respiratory:?hemoptysis?denies.?Cough?denies.?Cardiovascular:?Chest pain?denies.?Orthopnea?denies.?Gastrointestinal:?Comments?See HPI for details.?Genitourinary:?Hematuria?denies.?Dysuria?denies.?Musculoskeletal:?Painful joints?Both knees have arthritis.?Weakness?denies.?Skin:?Itching?denies.?Rash?denies.?Neurologic:?Headache?denies.?Seizures?denies.?Psychiatric:?Comments?all negative.? * Medical History:? * Surgical History:?Umbilical hernia Vocal cord polyps Right knee surgery Right knee replacement scheduled 02/2025 * Hospitalization/Major Diagno stic Procedure:?No Hospitalization History. * Family History:?Father: dece ased, bladder cancer.?Mother: alive.?Paternal Grand Mother: , bladder cancer.? Dad had colon polyps; no family hx of GI malignancy. * Social History:?Tobacco Use:?Tobacco Use/Smoking?Patient is a?current smoker,?How often do you smoke cigarettes??every day,?How many cigarettes a day do you smoke??11-20,?How soon after you wake up do you smoke your first cigarette??within 5 minutes,?Are you interested in quitting??Thinking about quitting.?Miscellaneous:?Marital status: . 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 ???Smoker 1ppd; only occasional beer. 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 Folic Acid 1 MG Tablet 1 tablet Orally Once a day Vitamin B12 1000 MCG Tablet Extended Release 1 tablet Orally Once a day Vitamin D 1000 UNIT Capsule 1 capsule Orally Once a day Taking Simvastatin 10 MG Tablet 2 tablets in the evening Orally Once a day Taking Omeprazole 40 MG Capsule Delayed Release 1 Orally Once a day every morning mcfp Taking Folic Acid 1 MG Tablet 1 tablet Orally Once a day Taking Vitamin B12 1000 MCG Tablet Extended Release 1 tablet Orally Once a day Taking Vitamin D 1000 UNIT Capsule 1 capsule Orally Once a day DiscontinuedOmeprazole 20 mg capsule TAKE 1 CAPSULE BY MOUTH EVERY DAY Atorvastatin Calcium 10 MG Tablet 1 tablet Orally Once a day Medication List reviewed and reconciled with the patientDiscontinued Omeprazole 20 mg capsule TAKE 1 CAPSULE BY MOUTH EVERY DAY Discontinued Atorvastatin Calcium 10 MG Tablet 1 tablet Orally Once a day Medication List reviewed and reconciled with the patient * Allergies:?N.K.D.A.yes[Aller gies Verified] Objective: * Vitals:?Wt:248lbs, Ht: 71.50 in, BMI:34.1Index, BP:111/11mm Hg, Wt-k.49. * Examination: ???General Examination: ?GENERAL APPEARANCE:?pleasant, well nourished, well developed, in no acute distress.?EYES:?sclera non-icteric.?ORAL CAVITY:?mucosa moist.?NECK/THYROID:?no cervical lymphadenopathy, neck supple.?SKIN:?nonjaundiced, no spider angiomata.?HEART:?S1, S2 normal.?LUNGS:?clear to auscultation bilaterally.?ABDOMEN:?normal bowel sounds, no guarding or rigidity, no guarding or rigidity, no masses palpable, soft, nontender, nondistended.?EXTREMITIES:?no edema.?NEUROLOGIC:?alert and oriented.? Assessment: * Assessment: 1.?Barretts esophagus withou t dysplasia - K22.70 (Primary)???2.?Gastroesophageal reflux disease without esophagitis - K21.9???3.?Hx of adenomatous colonic polyps - Z86.010???4.?Encounter for screening for malignant neoplasm of colon - Z12.11??? .Overall, Florinda appears to be doing well from a [...] be of assistance with in the interim. Florinda was comfortable with this plan Thank you again for allowing me to participate in Florinda's care. I shall continue to keep you advised of his progress. Plan: * Treatment: 2.?Hx of adenomatous colonic polyps? Notes: Repeat colonoscopy in 09/2027?? * Procedure Codes:?3017F COLOR ECTAL CA SCREEN DOC [id number] Pt scrn tbco and id as [id number] PREHTN/HTN BP DOC INDCD F/U DOC * Preventive Medicine:? ??Counseling:?Care goal follow-up plan:?Above Normal BMI Follow-up?Giving encouragement to exercise,?BMI management provided?Yes.? ??Screenings:?Fall Risk Screening?Fall Risk Assessment:?No falls in the past year,?Screening:?No falls in the past year,?Assessment:?Not performed, no reason specified,?Plan of Care:?Not documented, no reason specified.? * Follow Up:?prn * * Sign off status: Completed true * Provider:?Mj Mendoza MD Date:? 025 Generated for Harini parnell/Kt/Asifitting on:?02/25/2025 12:21 PM EDT History and Physical Notes * Examination Category Sub-Category Detail Notes Category Not es General Examination GENERAL APPEARANCE: pleasant , well nourished, well developed, in no acute distress HEAD: EYES: sclera non-icteric EARS: NOSE: THROAT: NECK/THYROID: no cervical lymphade nopathy, neck supple HEART: S1, S2 normal CHEST: LUNGS: clear to auscultatio n bilaterally ABDOMEN: normal bowel sounds, no guarding or rigidity, no guarding or rigidity, no masses palpable, soft, nontender, nondistended NEUROLOGIC: alert and oriented SKIN: nonjaundiced, no spi janis angiomata EXTREMITIES: no edema PERIPHERAL PULSES: BACK: BREASTS: MUSCULOSKELETAL: MALE GENITOURINARY: LYMPH NODES: RECTAL EXAM: FEMALE GENITOURINARY: ORAL CAVITY: mucosa moist
--- OUTSIDE RECORDS SUMMARY | 2025-02-25 12:22 | XMS_ITS ---
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 Mendoza Encounters Encounter Location Date Provider Diagnosis [facility] [address] [place] [phone] 10/08/2024 Mj Mendoza Plan Of Treatment No Information Progress Notes * FLORINDA RUSSDOB:1960 (64 yo M)Acc No.[id number]:10/08/2024 Patient:?FLORINDA RUSS :1960???Age:64 Y???Sex:Male Address:[address] [place] [address], [id number] * true * Date:? Generated for Harini parnell/Kt/eTransmitting on:?02/25/2025 12:21 PM EDT
--- NOTE | 2025-02-25 12:25 | PFT_ITS ---
Flows: FEV1: 83 % of predicted at 2.96 L FVC: 95 % of predicted at 4.42 L FEV1/FVC: 67 % Bronchodilator response: Absent Volumes: Total lung capacity: 99 % of predicted at 7.11 L Residual volume: 117 % of predicted at 2.59 L Slow vital capacity: 89 % of predicted at 4.52 L Expiratory reserve volume: 58 % of predicted at 0.77 L Diffusion capacity: Normal Impression: Cnci-[id number] obstructive ventilatory defect with no bronchodilator response. Decreased expiratory reserve volume suggests extrathoracic restriction likely secondary to abdominal obesity. MTDD
== END 2025-02-25 11:01 | disposition home or self-care (01) ==
LOC: HO.RESP 11:00
PROVIDERS: PCP Internal Medicine; Visit Provider Nurse Practitioner Family
DX: J44.9 Chronic obstructive pulmonary disease, unspecified (principal)
CPT/HCPCS: 94010; 94640; 94727; 94729

== ENCOUNTER → 2025-02-25 11:51 | Outpatient (BNV) | payer MEDICARE, SELFPAY | PROVIDERS: PCP Internal Medicine; Visit Provider Internal Medicine Pulmonary Disease | DX: J44.9 Chronic obstructive pulmonary disease, unspecified (principal) | CPT/HCPCS: 94060; 94727; 94729 ==

== ENCOUNTER 2025-03-04 07:39 | Outpatient (REF) | payer MEDICARE, SELFPAY ==
--- NOTE | ~2025-03-04 | XR_ITS ---
EXAMINATION: XR KNEE 1-2 VIEWS RIGHT HISTORY: M17.11 - Unilateral primary osteoarthritis, right knee COMPARISON: Correlation is made with the standing AP view of the right knee dated 12/15/2024. FINDINGS: Lateral and sunrise patellar views of the right knee are submitted. Osseous mineralization is normal. There is no fracture or dislocation. There is moderate osteoarthritis of the patellofemoral compartment. The lateral and medial compartments cannot be evaluated on these views. There is no joint effusion. XR/XR knee RT 2V IMPRESSION: Moderate osteoarthritis of the patellofemoral compartment. Please see above comments. Electronically signed by: Mj Horn MD 03/04/2025 09:42 AM EDT
== END 2025-03-04 07:40 | disposition home or self-care (01) ==
LOC: HO.HOSX 07:39
PROVIDERS: PCP Internal Medicine; Visit Provider Orthopaedic Surgery
DX: Z01.818 Encounter for other preprocedural examination (principal); M17.11 Unilateral primary osteoarthritis, right knee
CPT/HCPCS: 73560; 99212

== ENCOUNTER 2025-03-04 07:39 | Outpatient (AMB) | payer MEDICARE, SELFPAY ==
--- OUTSIDE RECORDS SUMMARY | 2025-03-04 07:42 | XMS_ITS | Patient Health Record ---
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 Disch: SPEC : [id number] RECD : 10/07/24 STATUS: DAKOTAH FORMAN NUM: [id number] GEOFF: 10/07/24-5 [facility] DR: Mj Mendoza MD ENTERED: 10/07/24 57 SP TYPE: Surgical OTHR DR: Parish Son MD ORDERED: HE Stain/3, Gross Micro L4/2, Eso bx BA w/exc COMMENTS: 8 unstaine d slides (Part B) sent to [employer] for [employer] on 10/09/24. Addendum Addendum 1 Entered: 10/26/24 (B): [employer] results: Risk Class:? Low Risk Score:? 0.6 (range 0 ? 10) 5-year probability o f progression:? 0.40% See entire scanned r eport in EMR - report/pathology section (camera icon). Addendum Signed ____ __(signature on file) Emy [place] 10/26/24 0901 Diagnosis A. Colon, at 30 [...] Muniz III Age/Sex: 64/M : 1960 Unit#: [id number] Attend Dr: Mj Mendoza MD Re10/07/24 Status : [facility] Location: [facility] Disch: SPEC : [id number] RECD : 10/07/24-1253 STATUS: DAKOTAH FORMAN NUM: [id number] GEOFF: 10/07/24-1155 [facility] DR: Mj Mendoza MD ENTERED: 10/07/24-12 57 SP TYPE: Surgical OTHR DR: Parish Son MD ORDERED: HE Stain/3, Gross Micro L4/2, Eso bx BA w/exc COMMENTS: 8 unstaine d slides (Part B) sent to [employer] for [employer] on 10/09/24. Material Received A. [...] B. CEDS Copies To: Parish Son MD [facility] [address] [place] [address] Mj Mendoza MD [facility] [address] [place] [address] Signed (si gnature on file) Emy Anthony 10/08/24 1123 END OF REPORT Reason For Referral No Information Medications Medication SIG (Take, Route, Fr equency, Duration) Notes Start Date End Date Status Omeprazole 40 MG 1 Orally Once a day every morning residential for 90 days 10/07/2024 Ac tive Folic [...] Problem Status W/U Status Risk Notes Problem 798858632 Encounter for screening for malignant neoplasm of colon (Z12.11) Active confirmed Problem Diverticular disease of colon (884996695) Diverticulosis of large intestine without perforation or abscess without bleeding (K57.30) Active confirmed Problem 011165668 Gastroesophageal reflux disease without esophagitis (K21.9) Active confirmed Problem 224941076 Barretts esophag us without dysplasia (K22.70) Active confirmed Problem Benign neoplasm of stomach (42439516) Gastric polyps (K31.7) Active confirmed Problem 982537636 Hx of adenomatou s colonic polyps (Z86.010) Active confirmed Problem 507736110 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) Active confirmed Vital Signs Blood pressure diastolic 11 mm Hg 02/11/2025 Height 71.50 in 02/11/2025 Blood pressure systolic 111 mm Hg 02/11/2025 Weight 248 lbs 02/11/2025 BMI 34.1 kg/m2 02/11/2025 Encounters Encounter Location Date Provider Diagnosis [facility] Outpatient [address], [place] [id number] 10/07/2024 Mj Mendoza Colon cancer screeni Z12.11 ; Colon polyps K63.5 ; Diverticulosis of large intestine without perforation or abscess without bleeding K57.30 ; Other hemorrhoids K64.8 ; Conley''s esophagus without dysplasia K22.70 ; Hiatal hernia K44.9 ; Gastric polyps K31.7 and Gastroesophageal reflux disease without esophagitis K21.9 [facility] [address] [facility] [address] [place] [address] 07/07/2024 Mj Mendoza Barretts esophagus without dysplasia K22.70 ; Gastroesophageal reflux disease without esophagitis K21.9 ; Hx of adenomatous colonic polyps Z86.010 and Encounter for screening for malignant neoplasm of colon Z12.11 [facility] [address] [place] [address] 02/11/2025 Mj Mendoza Barretts esophagus without dysplasia K22.70 ; Gastroesophageal reflux disease without esophagitis K21.9 ; Hx of adenomatous colonic polyps Z86.010 and Encounter for screening for malignant neoplasm of colon Z12.11 [facility] [address] [place] [phone] 10/07/2024 Mj Mendoza [facility] [address] [place] [phone] 10/08/2024 Mj Mendoza [facility] [address] [place] [phone] 01/06/2025 Mj Mendoza Assessments Encounter Date Diagnosis [...] Insured Coverage Start Date Coverage End Date [facility] Medicare Advantage Plan [address] [address] [place] [address] [phone] [id number] SAMY MUNIZ Self - patient is the insured Medical (General) History Medical History History ICD Code Denies SD,DM,CVA,Lung disease,renal dise ase GERD---EGD in 04/2012 and [...]
--- OUTSIDE RECORDS SUMMARY | 2025-03-04 07:42 | XMS_ITS ---
Author Organization [facility] Address [address] [place] [phone] Care Team Providers Care Engraver Block Name Role Phone Parish Son MD Primary Care Provider Mj Negrete [phone] Allergies No Known Allergies REASON FOR VISIT Patient presents today for barretts esophagus Medications Medication SIG (Take, Route, Fr equency, Duration) Notes Start Date End Date Status Omeprazole 40 MG 1 Orally Once a day every morning fci for 90 days 10/07/2024 Ac tive Folic [...] 02/11/2025 Encounters Encounter Location Date Provider Diagnosis [facility] [address] [place] [phone] 02/11/2025 Mj Mendoza Barretts esophagus without dysplasia [...] again for allowing me to participate in lForinda's care. I shall continue to keep you [...] Notes * FLORINDA RUSSDOB:1960 (65 yo M)Acc No.[id number]:02/11/2025 Progress Notes Patient:?FLORINDA RUSS Provider:?Mj Mendoza MD :1960???Age:65 Y???Sex:Male Nathan e:02/11/2025 Address:[address] [place], [place] [phone] Pcp:Parish Son MD Subjective: * Chief Complaints: [...] in quitting??Thinking about quitting.?Miscellaneous:?Marital status: . 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 ???Smoker 1ppd; only occasional beer. * Medications:?TakingSimvastat in 10 MG Tablet 2 tablets in the evening Orally Once a day Omeprazole 40 MG Capsule Delayed Release 1 Orally Once a day every morning fci Folic Acid 1 MG Tablet 1 tablet Orally Once a day Vitamin B12 1000 MCG Tablet Extended Release 1 tablet Orally Once a day Vitamin D 1000 UNIT Capsule 1 capsule Orally Once a day Taking Simvastatin 10 MG Tablet 2 tablets in the evening Orally Once a day Taking Omeprazole 40 MG Capsule Delayed Release 1 Orally Once a day every morning fci Taking Folic Acid 1 MG Tablet 1 [...] Procedure Codes:?3017F COLOR ECTAL CA SCREEN DOC [id number] Pt scrn tbco and id as [id number] PREHTN/HTN BP DOC INDCD F/U DOC * [...] MD Date:? 025 Generated for Harini parnell/Kt/Asifitting on:?03/04/2025 07:42 AM EDT History and Physical Notes * Examination [...]
--- OUTSIDE RECORDS SUMMARY | 2025-03-04 07:42 | XMS_ITS ---
Author Organization [facility] Address [address] [place] [phone] Care Team Providers Care Operational Meteorologist Name Role Phone Parish Son MD Primary Care Provider Mj Negrete [phone] REASON FOR VISIT New Insurance Encounters Encounter Location Date Provider Diagnosis [facility] [address] [place] [phone] 01/06/2025 Mj Mendoza Plan Of Treatment No Information Progress Notes * FLORINDA RUSSDOB:1960 (64 yo M)Acc No.[id number]:01/06/2025 Patient:?FLORINDA RUSS :1960???Age:64 Y???Sex:Male Address:[address] [place] [address], [address] * true * Date:? Generated for Harini parnell/Kt/eTransmitting on:?03/04/2025 07:42 AM EDT
--- OUTSIDE RECORDS SUMMARY | 2025-03-04 07:43 | XMS_ITS ---
Author Organization [facility] Address [address] [place] [phone] Care Team Providers Care Packaging Designer Name Role Phone Parish Son MD Primary Care Provider Mj Negrete [phone] REASON FOR VISIT please schedule f/u with Dr. Mendoza Encounters Encounter Location Date Provider Diagnosis [facility] [address] [place] [phone] 10/08/2024 Mj Mendoza Plan Of Treatment No Information Progress Notes * FLORINDA RUSSDOB:1960 (64 yo M)Acc No.[id number]:10/08/2024 Patient:?FLORINDA RUSS :1960???Age:64 Y???Sex:Male Address:[address] [place] [address], [address] * true * Date:? Generated for Harini parnell/Kt/eTransmitting on:?03/04/2025 07:42 AM EDT
--- NOTE | 2025-03-04 07:51 | A.OFFVIS_ITS ---
Vital Signs 03/04/25 07:53 Height 5 ft 9 in Weight 251 lb BMI 37.1 Intake Visit Reasons: Pre-Op: R TKA w/DR 03/08/25 Intake Note: Samy is a 64 year old male who presents with complaints of progressively worsening right knee pain. The patient describes his pain as sharp and severe in nature, 10/10. Most of the pain is along the medial aspect of his knee. He has undergone right knee ?meniscus surgery? in the past. He got only temporary relief from that procedure. He has had multiple injections given into his right knee. The most recent injection gave him minimal relief. He has also tried Tylenol, anti-inflammatory medicines and diclofenac topical gel which gave him minimal relief. The patient has difficulty walking even short distances because of his pain. At this point his right knee pain is interfering with his activities of daily living and his ability to sleep well through the night. Allergies No Known Allergies Allergy (Verified 03/04/25 07:51) Medication List - Last Reconciled 03/04/25 by Danny Jay MD budesonide-formoterol 80-4.5 mcg/actuation (Symbicort) 2 puffs inhalation Q12H cholecalciferol (vitamin D3) 50 mcg PO BEDTIME cyanocobalamin (vitamin B-12) 1,000 mcg PO BEDTIME diclofenac sodium 1% (Voltaren Arthritis Pain) 4 grams topical QID folic acid 1 mg PO BEDTIME Lactobacillus acidophilus (Probiotic) 10,000 mmu cells PO QAM nicotine apply 1-21 mg NICOTINE PATCH daily for 28 days; follow with 1-14 mg PATCH daily for 14 days, then 1-7mg PATCH daily for 14 days transdermal nicotine (polacrilex) (Nicorette) 2 mg buccal Q2H omeprazole 40 mg PO QAM simvastatin 10 mg PO BEDTIME 90 days walker Folding front wheeled walker [facility] Medical History Arthritis Nicotine dependence, cigarettes, uncomplicated Impaired glucose tolerance Compression fracture of T6 vertebra Pulmonary nodule GERD (gastroesophageal reflux disease) Cervical compression fracture Lumbar disc herniation Obstructive sleep apnea Obesity (BMI 30-39.9) Hypercholesterolemia Vitamin D deficiency Tubular adenoma of colon Conley's esophagus Renal calculi Surgical History History of right knee surgery History of esophagogastroduodenoscopy (EGD) History of colonoscopy History of ventral hernia repair Social History Housing: House Are you a primary companion caregiver to a significant other at home: No Do you presently have visiting nurse or other home services: No Alcohol intake: current Comment: once a week 6 drinks Patient Tobacco Use Status: Current everyday Tobacco user Tobacco use type: Cigarette Cigarette Packs Per Day: 1 Cigarettes Per Day: 20.0 Years Smoked: 52 e-Cigarette/Vaping Use: Never Used Second Hand Smoke Exposure: Yes Current occupational status: employed Cognitive needs: No Hearing needs: No Vision needs: Yes Physical Exam Vital Signs: BMI result Body Mass Index 37.1 Const Other: Well-nourished well-developed very friendly male awake alert and oriented x3 in no acute distress Extrem Other: Bilateral lower extremity examination shows good capillary refill, no skin lesions noted, normal sensation light touch Right knee examination shows a minimal effusion, palpable crepitus with range of motion, pain with range of motion, range of motion from -3 degrees to 115 degrees, no instability Results Reviewed Results Reviewed: X-rays of the patient's right knee show end-stage degenerative joint disease with grade 4 [id number] arthritis, subchondral sclerosis, osteophyte formation, no acute bony abnormalities Assessment & Plan Assessment & Plan (1) Osteoarthritis of right knee: Code(s): M17.11 - Unilateral primary osteoarthritis, right knee Category: Medical Plan Mr. Muniz presents with right knee pain due to end-stage degenerative joint disease. I had a lengthy discussion with the patient regarding the treatment options. At this point he has failed continued non operative treatments. The risks and benefits of right total knee replacement surgery were [facility] at [facility] with the [facility]. The patient wishes to proceed with surgery. environmental services project manager will be consulted following his surgery for home physical therapy and nursing. The patient will follow-up as instructed. Feel free to call me at any time should questions regarding his orthopedic management arise. I spent 21 minutes in reviewing the patient's records and imaging studies, seeing the patient and documenting in the medical record. Orders: Orders AMB Hemoglobin A1c Today Z01.818 - Encounter for other preprocedural examination Basic Metabolic Panel Today Z01.818 - Encounter for other preprocedural examination XR knee RT 2V Today M17.11 - Unilateral primary osteoarthritis, right knee Type and Screen Today Z01.818 - Encounter for other preprocedural examination Complete Blood Count Auto Diff Today Z01.818 - Encounter for other preprocedural examination Coding Level of Care Code Est Pt Level 3 (57480) Complex EM visit Add On G2211 Diagnoses Osteoarthritis of right knee M17.11
[2025-03-04 07:53] VITALS: BMI 37.1
== END 2025-03-04 08:18 | disposition home or self-care (01) ==
LOC: HO.HOS 07:40
PROVIDERS: PCP Internal Medicine; Visit Provider Orthopaedic Surgery
DX: M17.11 Unilateral primary osteoarthritis, right knee (principal)
CPT/HCPCS: 99024

== ENCOUNTER → 2025-03-04 09:11 | Outpatient (BNV) | payer MEDICARE, SELFPAY | PROVIDERS: PCP Internal Medicine; Visit Provider Radiology Diagnostic Radiology | DX: M17.11 Unilateral primary osteoarthritis, right knee (principal) | CPT/HCPCS: 73560 ==

== ENCOUNTER 2025-03-08 08:49 | Day surgery (SDC) | payer MEDICARE, SELFPAY ==
[2025-02-08 12:05] VITALS: BP 139/76; PULSE 71; RESP 20; O2SAT 96; BMI 36.2
--- NOTE | 2025-02-08 12:18 | ECG_ITS ---
Test Reason : PRE OP Blood Pressure : */* mmHG Vent. Rate : 73 BPM Atrial Rate : 73 BPM P-R Int : 154 ms QRS Dur : 90 ms QT Int : 392 ms P-R-T Axes : 72 21 50 degrees QTcB Int : 431 ms Normal sinus rhythm Normal ECG No previous ECGs available Referred By: Flower Patel Electronically Signed By: Hema Guerrero
[2025-02-08 14:00] LABS: MRSA Nasal PCR NEGATIVE (Negative); SA Nasal PCR NEGATIVE (Negative)
--- NOTE | 2025-03-01 14:20 | HO.ANESPROP2 ---
Documented by User: Tran Borrero NP 03/01/25 14:24 HPI - Anesthesia Eval Consult details Narrative: Pending: Labs 65yo M for Right Total Knee Arthroplasty, 03/08/25 Follows [facility] Pulmo for COPD, Smoker, HARSHA. Optimized to proceed. Medically optimized per PCP Anesthesia unavailable for PAT 02/08/25 [facility] Active Problems Active Problems: All Active Problems Encounter for preoperative pulmonary examination (Acute) COPD (chronic obstructive pulmonary disease) (Acute) Cough (Acute) Pre-op evaluation (Acute) Osteoarthritis of right knee (Acute) Multiple pulmonary nodules (Acute) Hematuria (Acute) Hypercholesterolemia (Acute) Impaired glucose tolerance (Acute) Obstructive sleep apnea (Acute) Nicotine dependence, cigarettes, uncomplicated (Acute) Conley's esophagus (Acute) GERD (gastroesophageal reflux disease) (Acute) Tubular adenoma of colon (Acute) Obesity (BMI 30-39.9) (Acute) Past Medical History Medical History Arthritis Nicotine dependence, cigarettes, uncomplicated Impaired glucose tolerance Compression fracture of T6 vertebra Pulmonary nodule GERD (gastroesophageal reflux disease) Cervical compression fracture Lumbar disc herniation Obstructive sleep apnea Obesity (BMI 30-39.9) Hypercholesterolemia Vitamin D deficiency Tubular adenoma of colon Conley's esophagus Renal calculi Family History Family history of problems with anesthesia: No Surgical History Surgical History History of right knee surgery History of esophagogastroduodenoscopy (EGD) History of colonoscopy History of ventral hernia repair History of Problems with Anesthesia: No Social History Social History Housing: House Are you a primary physician primary care sports medicine to a significant other at home: No Do you presently have visiting nurse or other home services: No Alcohol intake: current Alcohol intake frequency: holidays/special occasions only Comment: once a week 6 drinks Patient Tobacco Use Status: Current everyday Tobacco user Tobacco use type: Cigarette Cigarette Packs Per Day: 1 Cigarettes Per Day: 20.0 Years Smoked: 52 Smoked in Last 30 Days: Yes e-Cigarette/Vaping Use: Never Used Patient Interested in Nicotine Replacement: Yes Second Hand Smoke Exposure: Yes Use of substances other than those prescribed or required for medical reasons: No Have you been hit, kicked, punched, or otherwise hurt by someone within the past year? If so, by whom?: No Spiritual Healthcare Practices: none Christianity Healthcare Practices: none Cultural Healthcare Practices: none Are you DNR?: No Advance Directives Information Provided: Yes (as above noted) Advance Directives on File: No Recently lost weight without trying: No Eating poorly because of decreased appetite: No Nutrition Risks: No Nutritional Risk Poor oral hygiene: No (upper full denture) Current occupational status: employed Cognitive needs: No Hearing needs: No Vision needs: Yes Meds Allergies Allergy/AdvReac Type Severity Reaction Status Date / Time No Known Allergies Allergy Verified 03/04/25 07:51 Home Medications ?Medication ?Instructions ?Recorded ?Confirmed ?Last Taken ?Type cholecalciferol (vitamin D3) 50 50 mcg PO BEDTIME 11/07/20 03/04/25 03/07/25 History mcg (2,000 unit) capsule cyanocobalamin (vitamin B-12) 1,000 mcg PO BEDTIME 11/07/20 03/04/25 03/07/25 History 1,000 mcg capsule folic acid 1 mg tablet 1 mg PO BEDTIME 11/07/20 03/04/25 03/07/25 History Lactobacillus acidophilus 10 10,000 mmu cells PO QAM 02/08/25 03/04/25 03/07/25 History billion cell capsule (Probiotic) omeprazole 40 mg capsule,delayed 40 mg PO QAM 02/08/25 03/04/25 03/08/25 History release Exam Height,Weight and Vital Signs: Height 5 ft 9 in Weight 111.13 kg Last Vital Signs Pulse 71 02/08/25 12:05 Resp 20 02/08/25 12:05 BP 139/76 02/08/25 12:05 Pulse Ox 96 02/08/25 12:05 O2 Del Method Room Air 02/08/25 12:05 Pertinent Lab Results Pertinent Lab Results: Laboratory Tests 02/08/25 12:15 Nasal Screen MRSA (PCR) NEGATIVE Nasal S. aureus Screen NEGATIVE Nasal MRSA/S.aureus Interp SEE NOTE Narrative Narrative: PFT which revealed moderate COPD, response to bronchodilators in small to medium airways, lung volumes and DLCO WNL. CXR unremarkable. EKG 01/2025 Vent. Rate : 73 BPM Atrial Rate : 73 BPM P-R Int : 154 ms QRS Dur : 90 ms QT Int : 392 ms P-R-T Axes : 72 21 50 degrees QTcB Int : 431 ms Normal sinus rhythm Normal ECG No previous ECGs available Assessment and Plan Final Anesthetic Review Family History of Problems with Anesthesia: No History of Problems with Anesthesia: No Documented by User: Flower Patel MD 03/08/25 09:45 PMFSH Past Medical History Medical History Arthritis Nicotine dependence, cigarettes, uncomplicated Impaired glucose tolerance Compression fracture of T6 vertebra Pulmonary nodule GERD (gastroesophageal reflux disease) Cervical compression fracture Lumbar disc herniation Obstructive sleep apnea Obesity (BMI 30-39.9) Hypercholesterolemia Vitamin D deficiency Tubular adenoma of colon Conley's esophagus Renal calculi Surgical History Surgical History History of right knee surgery History of esophagogastroduodenoscopy (EGD) History of colonoscopy History of ventral hernia repair Social History Social History Housing: House Are you a primary physician primary care sports medicine to a significant other at home: No Do you presently have visiting nurse or other home services: No Alcohol intake: current Alcohol intake frequency: holidays/special occasions only Comment: once a week 6 drinks Patient Tobacco Use Status: Current everyday Tobacco user Tobacco use type: Cigarette Cigarette Packs Per Day: 1 Cigarettes Per Day: 20.0 Years Smoked: 52 Smoked in Last 30 Days: Yes e-Cigarette/Vaping Use: Never Used Patient Interested in Nicotine Replacement: Yes Second Hand Smoke Exposure: Yes Use of substances other than those prescribed or required for medical reasons: No Have you been hit, kicked, punched, or otherwise hurt by someone within the past year? If so, by whom?: No Spiritual Healthcare Practices: none Christianity Healthcare Practices: none Cultural Healthcare Practices: none Are you DNR?: No Advance Directives Information Provided: Yes (as above noted) Advance Directives on File: No Recently lost weight without trying: No Eating poorly because of decreased appetite: No Nutrition Risks: No Nutritional Risk Poor oral hygiene: No (upper full denture) Current occupational status: employed Cognitive needs: No Hearing needs: No Vision needs: Yes Meds Allergies Allergy/AdvReac Type Severity Reaction Status Date / Time No Known Allergies Allergy Verified 03/04/25 07:51 Home Medications ?Medication ?Instructions ?Recorded ?Confirmed ?Last Taken ?Type cholecalciferol (vitamin D3) 50 50 mcg PO BEDTIME 11/07/20 03/04/25 03/07/25 History mcg (2,000 unit) capsule cyanocobalamin (vitamin B-12) 1,000 mcg PO BEDTIME 11/07/20 03/04/25 03/07/25 History 1,000 mcg capsule folic acid 1 mg tablet 1 mg PO BEDTIME 11/07/20 03/04/25 03/07/25 History Lactobacillus acidophilus 10 10,000 mmu cells PO QAM 02/08/25 03/04/25 03/07/25 History billion cell capsule (Probiotic) omeprazole 40 mg capsule,delayed 40 mg PO QAM 02/08/25 03/04/25 03/08/25 History release Exam Airway Mallampati Class: II TM Dist: >3cm Neck ROM: Limited Heart: rrr Lungs: cta Assessment and Plan Assessment Anesthesia Assessment: Anesthesia Plan Discussed and Chart Reviewed Final Anesthetic Review NPO: Yes ASA Class: III Final Preanesthetic Review: No Changes in Pt Med Stat, Meds/Allgs Chart Reviewed, Consent Obtained/Reviewed and Anes Risks/Benef Reviewed Patient Risk: Intermediate Procedure Risk: Intermediate Anesthetic Plan Anesthetic Plan: Spinal, Neuraxial Block:, Regional Block and Agree w/ Assess. and Plan Disposition: Standard PACU
[2025-03-04 10:03] LABS: MANUAL DIFF FLAG NO
[2025-03-04 10:25] LABS: Basophils Percent Auto 0.6 % (0-2); Eosinophils Absolute Auto 0.1 X10*3/uL (0.0-0.4); Hematocrit 44.5 % (42.0-52.0); Hemoglobin 15.9 g/dl (14.0-18.0); Imm Gran Abs Auto 0.04 X10*3/uL (0.00-0.03); Imm Gran Pct Auto 0.6 % (0.0-0.4); Lymphocytes Absolute Auto 2.1 X10*3/uL (1.2-4.9); Lymphocytes Percent Auto 30.4 % (20-40); Mean Corpuscular HGB Conc 35.7 g/dl (31.0-36.0); Mean Corpuscular Hemoglobin 32.8 pg (27.0-33.0); Mean Corpuscular Volume 91.8 fL (80.0-98.0); Mean Platelet Volume 8.2 fL (9.4-12.4); Monocytes Absolute Auto 0.5 X10*3/uL (0.1-1.2); Monocytes Percent Auto 7.3 % (2-11); Neutrophils Absolute Auto 4.1 x10*3/uL (2.0-8.3); Neutrophils Percent Auto 59.1 % (45-73); Platelet Count 233 X10*3/uL (160-400); Red Blood Count 4.85 X10*6/uL (4.60-5.80); Red Cell Distribution Width 12.8 % (11.0-16.0); White Blood Count 6.9 X10*3/uL (4.8-10.8)
[2025-03-04 11:09] LABS: Anion Gap 12 (12-20); Blood Urea Nitrogen 12 mg/dL (9-16); Calcium 9.8 mg/dL (8.4-10.2); Carbon Dioxide 28 mmol/L (22-29); Chloride 103 mmol/L (96-108); Creatinine Clr Calc Pharmacy 83.7; Estimated Glomerular Filt Rate > 60; Glucose Random 87 mg/dL (60-115); Potassium 4.2 mmol/L (3.3-5.1); Sodium 139 mmol/L (135-145)
[2025-03-08] VITALS (11 sets, daily range): BP systolic 100–171; BP diastolic 61–100; PULSE 66–87; RESP 14–20; TEMP 36–36.7; O2SAT 95–99; BMI 38.1
--- NOTE | 2025-03-08 08:01 | PM.DS ---
DS: Providers Provider Date of Service: 03/09/25 <iRcky Givens PA-C - Last Filed: 03/09/25 07:49> Date of discharge: 03/09/25 <DALIA Mena Last Filed: 03/09/25 07:49> Primary care physician: Parish Son MD <Emperatriz Cooper PA-C - Last Filed: 03/08/25 08:02> DS: Summary Hospital Course Hospital Course: The patient underwent a successful right total knee arthroplasty, they were transferred to PACU and then to the floor to recover. During their stay, their vitals were stable, afebrile at 97.4. Labs were unremarkable, H/H 13.4/38.8. POD 1 they were started on Aspirin 325mg po bid for DVT ppx, they also received Physical Therapy services twice a day. Prior to discharge, their dressing was clean dry and intact, and the plan was to be discharged home with VNA services. <Emperatriz Cooper PA-C - Last Filed: 03/08/25 08:02> Time Attestation Discharge Coordination Time (in mins): 30 <DALIA Winters Last Filed: 03/08/25 08:02> Quality: Safe Use of Opioids Does Pt have an Active Cancer Diagnosis on the Problem List?: No <DALIA Winters Last Filed: 03/08/25 08:02> Quality: Stroke Does the patient have a stroke diagnosis?: No <DALIA Winters Last Filed: 03/08/25 08:02> Physical Exam Vital Signs: Vital Signs: Last Vital Signs Pulse 71 02/08/25 12:05 Resp 20 02/08/25 12:05 BP 139/76 02/08/25 12:05 Pulse Ox 96 02/08/25 12:05 O2 Del Method Room Air 02/08/25 12:05 BMI result Body Mass Index 36.2 <DALIA Winters Last Filed: 03/08/25 08:02> Const: General: cooperative, healthy appearing and no acute distress <DALIA Winters Last Filed: 03/08/25 08:02> Resp: Effort & Inspection: normal respiratory effort and able to speak in complete sentences <Emperatriz Cooper PA-C - Last Filed: 03/08/25 08:02> Cardio: Rate: regular rate <Emperatriz Cooper PA-C - Last Filed: 03/08/25 08:02> Peripheral pulses: Peripheral pulses 2+ throughout <Emperatriz Cooper PA-C - Last Filed: 03/08/25 08:02> GI: Palpation (GI): Soft to palpation <DALIA Winters Last Filed: 03/08/25 08:02> Skin: Lesions: no lesions <Emperatriz Cooper PA-C - Last Filed: 03/08/25 08:02> Rashes: no rashes <Emperatriz Cooper PA-C - Last Filed: 03/08/25 08:02> Extrem: Other: right knee dressing is c/d/i. Able to dorsi/plantar flex. Calf is supple and nontender. Sensation intact. Pedal pulse intact. <Emperatriz Cooper PA-C - Last Filed: 03/08/25 08:02> Discharge Plan Discharge Patient Disposition: Home Health Service <Emperatriz Cooper PA-C - Last Filed: 03/08/25 08:02> Referrals: Emperatriz Cooper PA-C [Physician Web Press Operator Helper Offset] - 03/25/25 12:30 pm <Emperatriz Cooper PA-C - Last Filed: 03/08/25 08:02> Discharge Medications: New docusate sodium 100 mg Capsule 100 mg PO BID 7 Days Qty: 14 0RF celecoxib 200 mg Capsule 200 mg PO BID 30 Days Qty: 60 0RF methocarbamol 500 mg Tablet 500 mg PO TID 7 Days Qty: 21 0RF acetaminophen 325 mg Tablet 650 mg PO Q6H PRN (Reason: Pain, Mild 1-3,Fever,Headache) 30 Days Qty: 240 0RF aspirin 325 mg Tablet 325 mg PO BID 42 Days Qty: 84 0RF gabapentin 100 mg Capsule 100 mg PO BEDTIME 7 Days Qty: 7 0RF oxycodone 5 mg Tablet 5 mg PO Q4H PRN (Reason: Pain, Mild (Pain Scale 1-3)) 7 Days Qty: 42 0RF Rx Instructions: Partial Fill upon patient request. Continued (DME) walker Misc See Rx Instructions .ROUTE .MEDSUPPLY Qty: 1 0RF Rx Instructions: Folding front wheeled walker simvastatin 10 mg tablet 10 mg PO BEDTIME 90 Days Qty: 90 3RF Probiotic 10 billion cell Capsule 10,000 mmu cells PO QAM omeprazole 40 mg capsule,delayed release(DR/EC) 40 mg PO QAM cholecalciferol (vitamin D3) 50 mcg (2,000 unit) capsule 50 mcg PO BEDTIME folic acid 1 mg tablet 1 mg PO BEDTIME cyanocobalamin (vitamin B-12) 1,000 mcg capsule 1,000 mcg PO BEDTIME nicotine 21-14-7 mg/24 hr patch, TD daily, sequential See Rx Instructions transdermal .COMPLEX Qty: 56 0RF Patient Comments: postop Rx Instructions: apply 1-21 mg NICOTINE PATCH daily for 28 days; follow with 1-14 mg PATCH daily for 14 days, then 1-7mg PATCH daily for 14 days transdermal nicotine (polacrilex) [Nicorette] 2 mg gum 2 mg buccal Q2H Qty: 100 0RF Rx Instructions: postop budesonide-formoterol [Symbicort] 80-4.5 mcg/actuation HFA aerosol inhaler 2 puff inhalation Q12H Qty: 10.2 3RF diclofenac sodium [Voltaren Arthritis Pain] 1 % gel 4 g topical QID Qty: 100 3RF Rx Instructions: apply to single knee, ankle, foot; for foot includes sole/toes/top of foot <Emperatriz Cooper PA-C - Last Filed: 03/08/25 08:02> Discharge Orders: Discharge Order (Routine); Ordered 03/09/25 Ordered By: Ricky Givens <Emperatriz Cooper PA-C - Last Filed: 03/08/25 08:02> Diet: Advance to usual diet <Emperatriz Cooper PA-C - Last Filed: 03/08/25 08:02> Advance to usual diet <Ricky Givens PA-C - Last Filed: 03/09/25 07:49> Activity on Discharge: Use cane or walker <Emperatriz Cooper PA-C - Last Filed: 03/08/25 08:02> Use cane or walker <Ricky Givens PA-C - Last Filed: 03/09/25 07:49> Activity Restrictions/Additional Instructions: Physical Therapy for ROM 0-120, quad strength, gait training. Use walker for ambulation Limit stair climbing, No shower, No tub bath, No driving Continue ASA for anticoagulant x 6 weeks Keep Aquacel dressing clean, dry and intact. Follow up with orthopedics in 2 weeks <Emperatriz Cooper PA-C - Last Filed: 03/08/25 08:02> Print Language: Afghan <Emperatriz Cooper PA-C - Last Filed: 03/08/25 08:02>
--- NOTE | 2025-03-08 08:02 | P.F2F_ITS ---
Service Date Service Date: 03/08/25 Encounter Date of encounter: 03/09/25 Reasons for Services Signs and symptoms assessed: s/p RTKA Pt. is considered homebound due to recent surgery. Unable to drive, poor balance, poor gait mechanics. Reason for physical therapy: home safety and mobility, therapeutic exercises, restore joint function, gait/transfer training and ADL training Homebound: Leaving the home is medically contraindicated at this time without the asist of a device and/or another person due th the listed conditions above and below. Reason homebound: unsteady gait / fall risk, leg weakness, pain with ambulation, pain with transfers, poor balance / fall risk and unable to drive Certification: Based on the above findings, I certify that this patient is confined to the home and needs intermittent care home care, physical therapy and/or speech th erapy, or continues to need occupational therapy. The patient is under my care, and I have initiated the establishment of the plan of care. The patient will be followed by a physician who will periodically review the plan of care. Time Spent With Patient Time: Total time managing care of this patient today ____ minutes.
[2025-03-08] MEDS: Lactated Ringers 1,000 ML 50 ML IVCONT (09:00)
[2025-03-08] MEDS: ceFAZolin Sodium/Dextrose,Iso 2 GM/50 ML PIGGYBACK IV ×3 (10:45→23:19)
[2025-03-08] MEDS: Acetaminophen 1,000 MG/100 ML PIGGYBACK 400 MG IV (11:55)
--- NOTE | 2025-03-08 13:29 | PM.OP ---
Brief Operative Note Date of Service: 03/08/25 Pre-op diagnosis: Right knee degenerative joint disease Post-op diagnosis: same Procedure: Right total knee arthroplasty Implants: [place] Triathlon cemented posterior stabilized total knee arthroplasty with a femoral component size 5 right, tibial component size 5, polyethylene liner size 5 with a 11 mm of thickness, an asymmetric patellar component size 32 with 10 mm of thickness Surgeon: Danny Jay MD Anesthesia: regional and spinal Was an Flavoring Maker used for this Procedure?: No Estimated blood loss (mL): 200 Pathology: other (Bony fragments from the right femur, tibia and patella) Condition: stable Disposition: PACU
--- NOTE | 2025-03-08 13:31 | P.OP_ITS ---
Operative Note Operative Note Date of Service: 03/08/25 Narrative: After the patient was identified as Samy Muniz and his right knee was initialed by myself the patient was brought to the holding area where a right leg nerve block was performed by the anesthesiologist in routine fashion. The patient was then brought to the operating room where conscious sedation and spinal anesthesia were performed by the anesthesiologist in routine fashion. The patient was given 2 g of IV Ancef preoperatively for infection prophylaxis. The patient's right lower extremity was prepped and draped in sterile fashion. A formal time-out was completed. The patient's right knee was placed onto a small bump to produce 30? of knee flexion during exposure. A #10 scalpel blade was used to make a midline incision extending 1 handbreadth proximal and distal to the patella. A second #10 scalpel blade was used to dissect the subcutaneous tissues down to the extensor mechanism. The subcutaneous flaps were maintained as thick as possible. A medial parapatellar arthrotomy was then performed using a #10 scalpel blade. The arthrotomy was begun just medial to the patellar tendon. The arthrotomy was continued 1 cm medial to the patella and then 5 mm into the medial aspect of the quadriceps tendon. The infrapatellar fat pad was partially excised to help with exposure. The soft tissue retinaculum was raised one-half of the way around the medial aspect of the proximal tibia. The patella was everted and the knee was flexed to 90?. There was no injury to the patellar tendon or its insertion onto the tibial tubercle. A drill bit was introduced into the distal aspect of the femur with a starting point 1 cm anterior to the origin of the posterior cruciate ligament. The intramedullary alignment gen was put into place. The distal alignment guide was set for a 5 degree valgus cut. The distal cutting block was put into place and was held with 4 pins. The intramedullary alignment gen was removed. Soft tissues were retracted in the distal femoral cut was made using a sagittal saw. The distal aspect of the femur measured to be a size 5 right component. Two drill holes were placed into the distal aspect of the femur marking 3? of external rotation. The distal cutting block was impacted into place and was held with 2 pins. Soft tissues were retracted and the 4 distal femoral cuts were made using a sagittal saw. Final notching and drilling of the distal aspect of the femur were performed in routine fashion. The trial femoral component was impacted into place. The knee was taken through a full range of motion. The patella tracked well. The patella was everted and the knee was flexed to 90?. The trial component was removed and our attention was directed to the proximal tibia. The medial and lateral menisci were removed using a #10 scalpel blade. A small rim of the medial meniscus was left intact to help prevent injury to the medial collateral ligament. A drill bit was then introduced into the proximal tibia with a starting point midway from medial to lateral and one-third of the way posteriorly. The intramedullary alignment gen was put into place. The proximal tibial cutting guide was placed over the alignment gen in line with the 2nd toe. The guide was held in place using 3 pins. The intramedullary alignment gen was removed. Soft tissues were retracted and the proximal tibial cut was made using a sagittal saw. The proximal tibia measured to be a size 5 component. The tibial tray was put into place with an 11 mm liner. The femoral component was impacted into place. The knee was taken through a full range of motion. There was full flexion and full extension. There was no instability with varus or valgus stress testing with the knee in flexion or extension. The patella tracked well with no medially directed force. The rotation of the tibial tray was marked using electrocautery with the knee in extension. The patella was everted and the knee was flexed to 90?. All trial components were removed. The tibial tray was placed onto the proximal tibia in line with the electrocautery yg. The tray was held in place using 3 pins. Final broaching of the proximal tibia was performed in routine fashion. The trial liner and trial femoral component were put into place. The knee was brought into extension and our attention was directed to the patella. The patella measured 25 mm in thickness. The patellar resection guide was set for a 10 mm resection. Soft tissues were retracted and the patella cut was made using a sagittal saw. The remaining patella measured 15 mm in thickness. The undersurface of the patella was me asured to be a size 32 asymmetric component. Three drill holes were placed into the undersurface of the patella in routine fashion. The trial component was put into place. The knee was taken through a full range of motion. The patella tracked well. The patella was everted and the knee was flexed to 90?. All trial components were removed. The knee was once again brought into extension and placed onto a small bump. The knee joint was irrigated with copious amounts of normal saline solution via pulse lavage while the cement was mixed. The patella was everted and the knee was flexed to 90?. A small amount of cement was placed along the posterior aspects of the tibial and femoral components. Cement was then pressurized into the proximal tibia. The tibial component was impacted into place. Any excess cement was removed. The polyethylene liner was then impacted into place. Cement was then pressurized into the distal aspect of the femur. A small amount of cement was placed into the intramedullary canal to help reduce bleeding. The femoral component was impacted into place. Any excess cement was removed. The knee was then brought into extension. Cement was pressurized into the undersurface of the patella. The patellar component was put into place and was held with a patella clamp. Any excess cement was removed. Once the cement had hardened the patellar clamp was removed. The knee was taken through a full range of motion. There was full flexion and extension. There was no instability with varus or valgus stress testing with the knee in flexion or extension. The patella tracked well with no medially directed force. The knee joint was irrigated with copious amounts of normal saline solution via pulse lavage. Any significant bleeding vessels were coagulated. The patient's right knee was placed onto a small bump. The arthrotomy was closed with #2 Ethibond [id number] interrupted suture as well as #1 Vicryl [id number] interrupted suture. The wound was once again irrigated. The subcutaneous tissues were closed with 0 Vicryl and 2-0 Vicryl interrupted sutures. The skin was closed with skin stanley. Dry sterile dressing and Diogo bandages were placed over the patient's right knee. The patient was awake and alert. The patient was transferred to the recovery room in stable condition.
[2025-03-08] MEDS: 0.9 % Sodium Chloride Flush 3 ML SYRINGE IVFLUSH (14:07)
[2025-03-08] MEDS: Lactated Ringers 1,000 ML 100 ML IVCONT ×2 (14:11→23:19)
[2025-03-08] MEDS: methocarbamoL 500 MG TABLET PO ×2 (14:17→20:30)
[2025-03-08] MEDS: Celecoxib 200 MG CAPSULE PO ×2 (14:17→20:31)
[2025-03-08] MEDS: Docusate Sodium 100 MG CAPSULE PO ×2 (14:17→20:30)
[2025-03-08] MEDS: oxyCODONE HCl ER 10 MG TAB.ER.12H PO ×2 (14:17→20:30)
[2025-03-08] MEDS: oxyCODONE HCl Immed Release 5 MG TABLET 10 MG PO ×2 (14:20→19:06)
[2025-03-08] MEDS: Nicotine 14 MG PATCH.TD24 TRANSDERMA (14:20)
--- NOTE | 2025-03-08 14:30 | PHA.MEDREC ---
Pharmacy Consult ? Medication Reconciliation Pharmacy has completed the medication reconciliation.Med rec completed by nursing, reviewed by pharmacist
[2025-03-08] MEDS: HYDROmorphone HCl 0.5 MG/0.5 ML SYRINGE IVPUSH ×2 (16:03→20:31)
--- NOTE | 2025-03-08 16:56 | HO.PM.IMCN ---
History of Present Illness Data of Consult Service Date: 03/08/25 Primary Care Provider: Parish Son MD [facility] The patient is a 65-year-old male with HTN, tubular adenoma, GERD, HLD on sivastatin, history of obesity, tobacco abuse, obstructive sleep apnea, impaired glucose tolerance last and chronic knee pain d/t OA. He underwent Right TkR today, he is doing well post op, vitals are stable, pain is controlled. Review of Systems Review of Systems: Gen: no fever Resp: no sob, no cough CV: no chest, no SAUCEDO, no leg edema GI: No n/v, no abd pain Neuro: No confusion Yes all other systems are reviewed and are negative [facility] Medical History Arthritis Nicotine dependence, cigarettes, uncomplicated Impaired glucose tolerance Compression fracture of T6 vertebra Pulmonary nodule GERD (gastroesophageal reflux disease) Cervical compression fracture Lumbar disc herniation Obstructive sleep apnea Obesity (BMI 30-39.9) Hypercholesterolemia Vitamin D deficiency Tubular adenoma of colon Conley's esophagus Renal calculi Surgical History History of right knee surgery History of esophagogastroduodenoscopy (EGD) History of colonoscopy History of ventral hernia repair Social History Household Members: Other Household Members Other:: girlfriend Housing: House Are you a primary day care director to a significant other at home: No Do you presently have visiting nurse or other home services: No Alcohol intake: current Alcohol intake frequency: holidays/special occasions only Comment: once a week 6 drinks Patient Tobacco Use Status: Current everyday Tobacco user Tobacco use type: Cigarette Cigarette Packs Per Day: 1 Cigarettes Per Day: 20.0 Years Smoked: 52 e-Cigarette/Vaping Use: Never Used Second Hand Smoke Exposure: Yes Current occupational status: employed Cognitive needs: No Hearing needs: No Vision needs: Yes Meds Allergies Allergy/AdvReac Type Severity Reaction Status Date / Time No Known Allergies Allergy Verified 03/04/25 07:51 Active Medications: Current Medications Acetaminophen (Acetaminophen 325 Mg Tablet) 650 mg PO Q6H PRN PRN Reason: Pain, Mild 1-3,fever,headache Aspirin (Aspirin 325 Mg Tablet) 325 mg PO BID LEIDY Celecoxib (Celecoxib 200 Mg Capsule) 200 mg PO BID COUNTS INCLUDE 234 BEDS AT THE [facility] Last Admin: 03/08/25 14:17 Dose: 200 mg Cyanocobalamin (Cyanocobalamin (Vitamin B-12) 1,000 Mcg Tablet) 1,000 mcg PO BEDTIME COUNTS INCLUDE 234 BEDS AT THE [facility] Docusate Sodium (Docusate Sodium 100 Mg Capsule) 100 mg PO BID COUNTS INCLUDE 234 BEDS AT THE [facility] Last Admin: 03/08/25 14:17 Dose: 100 mg Folic Acid (Folic Acid 1 Mg Tablet) 1 mg PO BEDTIME COUNTS INCLUDE 234 BEDS AT THE [facility] Gabapentin (Gabapentin 100 Mg Capsule) 100 mg PO BEDTIME COUNTS INCLUDE 234 BEDS AT THE [facility] Hydromorphone HCl (Hydromorphone Hcl 0.5 Mg/0.5 Ml Syringe) 0.25 mg IVPUSH Q4H PRN; Protocol PRN Reason: Pain, Severe (Pain Scale 7-10) Hydromorphone HCl (Hydromorphone Hcl 0.5 Mg/0.5 Ml Syringe) 0.5 mg IVPUSH Q4H PRN; Protocol PRN Reason: Pain, Severe (Pain Scale 7-10) Last Admin: 03/08/25 16:03 Dose: 0.5 mg Lactated Ringer's (Lr) 1,000 mls @ 100 mls/hr IVCONT .Q10H COUNTS INCLUDE 234 BEDS AT THE [facility] Last Admin: 03/08/25 14:11 Dose: 100 mls/hr Cefazolin Sodium/Dextrose (Ancef) 2 gm in 50 mls @ 100 mls/hr IV Q8H COUNTS INCLUDE 234 BEDS AT THE [facility] Stop: 03/09/25 16:59 Last Admin: 03/08/25 16:43 Dose: 100 mls/hr Magnesium Hydroxide (Milk Of Magnesia 30 Ml Oral.Susp) 30 ml PO DAILY PRN PRN Reason: Constipation Melatonin (Melatonin 3 Mg Tablet) 6 mg PO BEDTIME PRN PRN Reason: Insomnia Methocarbamol (Methocarbamol 500 Mg Tablet) 500 mg PO TID COUNTS INCLUDE 234 BEDS AT THE [facility] Last Admin: 03/08/25 14:22 Dose: Not Given Naloxone HCl (Naloxone Hcl 0.4 Mg/Ml Vial) 0.04 mg IVPUSH Q5M PRN PRN Reason: Excessive sedation or RR < 8 Nicotine (Nicotine 14 Mg Patch.Td24) 14 mg TRANSDERMA DAILY COUNTS INCLUDE 234 BEDS AT THE [facility] Last Admin: 03/08/25 14:20 Dose: 14 mg Omeprazole (Omeprazole 40 Mg Capsule.Dr) 40 mg PO DAILY@0630 COUNTS INCLUDE 234 BEDS AT THE [facility] Ondansetron HCl (Ondansetron Hcl 4 Mg/2 Ml Vial) 4 mg IVPUSH Q8H PRN PRN Reason: Nausea and Vomiting Oxycodone HCl (Oxycodone Hcl Immed Release 5 Mg Tablet) 5 mg PO Q4H PRN PRN Reason: Pain, Mild (Pain Scale 1-3) Oxycodone HCl (Oxycodone Hcl Immed Release 5 Mg Tablet) 10 mg PO Q4H PRN PRN Reason: Pain, Moderate(Pain Scale 4-6) Last Admin: 03/08/25 14:20 Dose: 10 mg Oxycodone HCl (Oxycodone Hcl Er 10 Mg Tab.Er.12h) 10 mg PO BID COUNTS INCLUDE 234 BEDS AT THE [facility] Last Admin: 03/08/25 14:17 Dose: 10 mg Sodium Chloride (0.9 % Sodium Chloride Flush 3 Ml Syringe) 3 ml IVFLUSH QSHIFT COUNTS INCLUDE 234 BEDS AT THE [facility] Last Admin: 03/08/25 15:57 Dose: Not Given Vitamin D (Cholecalciferol (Vitamin D3) 25 Mcg Tablet) 50 mcg PO BEDTIME COUNTS INCLUDE 234 BEDS AT THE [facility] Home Medications ?Medication ?Instructions ?Recorded ?Confirmed ?Last Taken ?Type cholecalciferol (vitamin D3) 50 50 mcg PO BEDTIME 11/07/20 03/04/25 03/07/25 History mcg (2,000 unit) capsule cyanocobalamin (vitamin B-12) 1,000 mcg PO BEDTIME 11/07/20 03/04/25 03/07/25 History 1,000 mcg capsule folic acid 1 mg tablet 1 mg PO BEDTIME 11/07/20 03/04/25 03/07/25 History Lactobacillus acidophilus 10 10,000 mmu cells PO QAM 02/08/25 03/04/25 03/07/25 History billion cell capsule (Probiotic) omeprazole 40 mg capsule,delayed 40 mg PO QAM 02/08/25 03/04/25 03/08/25 History release Physical Exam Vital Signs and Narrative: Vital Signs: Last Vital Signs Temp 96.9 F 03/08/25 16:22 Pulse 79 03/08/25 16:22 Resp 18 03/08/25 16:22 BP 131/86 03/08/25 16:22 Pulse Ox 95 03/08/25 16:22 O2 Del Method Room Air 03/08/25 16:22 O2 Flow Rate 2 03/08/25 13:26 BMI result Body Mass Index 38.1 Results Labs 03/04/25 10:02 03/04/25 10:02 Assessment and Plan Plan The patient is a 65-year-old male with HTN, tubular adenoma, GERD, HLD on sivastatin, history of obesity, tobacco abuse, obstructive sleep apnea, impaired glucose tolerance last and chronic knee pain d/t OA. He underwent Right TkR today, he is doing well post op, vitals are stable, pain is controlled. Continue home meds per med rec, continue post op care including pain management and dvt prophylaxis
[2025-03-08] MEDS: Aspirin 325 MG TABLET PO ×2 (17:20→20:30)
[2025-03-08] MEDS: Cholecalciferol (Vitamin D3) 25 MCG TABLET 50 MCG PO (20:30)
[2025-03-08] MEDS: Folic Acid 1 MG TABLET PO (20:30)
[2025-03-08] MEDS: Melatonin 3 MG TABLET 6 MG PO (20:30)
[2025-03-08] MEDS: Cyanocobalamin (Vitamin B-12) 1,000 MCG TABLET 1000 MCG PO (20:31)
[2025-03-08] MEDS: Gabapentin 100 MG CAPSULE PO (20:31)
[2025-03-09 03:11] VITALS: BP 134/78; PULSE 77; RESP 18; TEMP 36.2; O2SAT 95
[2025-03-09] MEDS: HYDROmorphone HCl 0.5 MG/0.5 ML SYRINGE IVPUSH (03:12)
[2025-03-09] MEDS: oxyCODONE HCl Immed Release 5 MG TABLET 10 MG PO (05:47)
[2025-03-09] MEDS: Omeprazole 40 MG CAPSULE.DR PO (05:48)
[2025-03-09] MEDS: Acetaminophen 325 MG TABLET 650 MG PO (05:49)
[2025-03-09 06:48] LABS: MANUAL DIFF FLAG NO
[2025-03-09 06:58] LABS: Basophils Percent Auto 0.2 % (0-2); Eosinophils Percent Auto 0.2 % (0-4); Hematocrit 38.8 % (42.0-52.0); Hemoglobin 13.4 g/dl (14.0-18.0); Imm Gran Abs Auto 0.06 X10*3/uL (0.00-0.03); Imm Gran Pct Auto 0.6 % (0.0-0.4); Lymphocytes Absolute Auto 1.8 X10*3/uL (1.2-4.9); Lymphocytes Percent Auto 16.9 % (20-40); Mean Corpuscular HGB Conc 34.5 g/dl (31.0-36.0); Mean Corpuscular Hemoglobin 32.4 pg (27.0-33.0); Mean Corpuscular Volume 93.7 fL (80.0-98.0); Mean Platelet Volume 8.3 fL (9.4-12.4); Neutrophils Absolute Auto 7.8 x10*3/uL (2.0-8.3); Neutrophils Percent Auto 73.1 % (45-73); Platelet Count 220 X10*3/uL (160-400); Red Blood Count 4.14 X10*6/uL (4.60-5.80); Red Cell Distribution Width 12.9 % (11.0-16.0); White Blood Count 10.7 X10*3/uL (4.8-10.8)
[2025-03-09 07:14] VITALS: BP 137/70; PULSE 70; RESP 16; TEMP 36.3; O2SAT 95
[2025-03-09 07:19] LABS: Anion Gap 12 (12-20); Blood Urea Nitrogen 12 mg/dL (9-16); Calcium 9.2 mg/dL (8.4-10.2); Carbon Dioxide 26 mmol/L (22-29); Chloride 103 mmol/L (96-108); Estimated Glomerular Filt Rate > 60; Glucose Fasting 116 mg/dL (60-99); Sodium 137 mmol/L (135-145)
--- NOTE | 2025-03-09 08:08 | HO.POSTANES ---
Post Anesthesia Evaluation Post Anesthesia Evaluation Date of Service: 03/09/25 Vital Signs: Vital Signs Temp Pulse Resp BP Pulse Ox O2 Del Method 03/09/25 07:14 97.4 F 70 16 137/70 95 Room Air 03/09/25 03:11 97.1 F 77 18 134/78 95 Room Air 03/08/25 23:42 97 F 81 18 122/76 96 Room Air Anesthesia: Regional and Spinal Mental Status: Awake Pain Control: Satisfactory Nausea/Vomiting: None Hydration: Adequate Anesthesia-Related Issues: No Anes. Related Issues
[2025-03-09] MEDS: ceFAZolin Sodium/Dextrose,Iso 2 GM/50 ML PIGGYBACK IV (08:47)
[2025-03-09] MEDS: methocarbamoL 500 MG TABLET PO (08:49)
[2025-03-09] MEDS: Docusate Sodium 100 MG CAPSULE PO (08:49)
[2025-03-09] MEDS: Celecoxib 200 MG CAPSULE PO (08:50)
[2025-03-09] MEDS: oxyCODONE HCl ER 10 MG TAB.ER.12H PO (08:50)
[2025-03-09] MEDS: 0.9 % Sodium Chloride Flush 3 ML SYRINGE IVFLUSH (08:51)
[2025-03-09] MEDS: Aspirin 325 MG TABLET PO (08:52)
[2025-03-09] MEDS: Nicotine 14 MG PATCH.TD24 TRANSDERMA (08:52)
--- NOTE | 2025-03-09 09:05 | PC.NURSE ---
Patient requested for elba wrap to be removed from right leg
--- NOTE | 2025-03-09 09:17 | MHC.CM.PN ---
pt is dcd going home with vega
--- NOTE | 2025-03-09 09:54 | PC.NURSE ---
Spoke with patient as requested by DAVE Esteves and instructed to remove outer gauze from right knee and tape top and bottom of aquacel drsg,patient stated understanding.
== END 2025-03-09 09:28 | disposition home health service (06) ==
LOC: HO.SSS 08:49 → HO.S3 11:23
PROVIDERS: Physician Assistant; PCP Internal Medicine; Visit Provider Orthopaedic Surgery
PROC: (CPT 27447; principal; 2025-03-08 10:30)
DX: M25.561 Pain in right knee (principal); G89.29 Other chronic pain; M17.11 Unilateral primary osteoarthritis, right knee; R26.2 Difficulty in walking, not elsewhere classified; R73.02 Impaired glucose tolerance (oral); K21.9 Gastro-esophageal reflux disease without esophagitis; K22.70 Barrett's esophagus without dysplasia; R91.1 Solitary pulmonary nodule; I10 Essential (primary) hypertension; E78.00 Pure hypercholesterolemia, unspecified; E55.9 Vitamin D deficiency, unspecified; G47.33 Obstructive sleep apnea (adult) (pediatric); E66.9 Obesity, unspecified; Z68.36 Body mass index [BMI] 36.0-36.9, adult; Z79.899 Other long term (current) drug therapy; Z98.890 Other specified postprocedural states; F17.210 Nicotine dependence, cigarettes, uncomplicated
CPT/HCPCS: 27447; 36415; 80048; 85025; 86850; 86900; 86901; 87640; 87641; 88305; 88311; 93005; 97110; 97116; 97162; C1776; J0131; J0665; J0690; J1100; J1171; J2003; J2250; J2371; J2704; J3370; J7120

== ENCOUNTER → 2025-03-08 08:49 | Outpatient (BNV) | payer MEDICARE, SELFPAY | PROVIDERS: PCP Internal Medicine; Visit Provider Orthopaedic Surgery | DX: M17.11 Unilateral primary osteoarthritis, right knee (principal) | CPT/HCPCS: 27447 ==

== ENCOUNTER → 2025-03-08 08:49 | Outpatient (BNV) | payer MEDICARE, SELFPAY | PROVIDERS: PCP Internal Medicine; Visit Provider Internal Medicine | DX: E78.00 Pure hypercholesterolemia, unspecified (principal); M17.11 Unilateral primary osteoarthritis, right knee | CPT/HCPCS: 99222 ==

== ENCOUNTER 2025-03-10 14:00 | Outpatient (AMB) | payer MEDICARE, SELFPAY ==
[2025-03-10 14:05] VITALS: BMI 37.9
--- NOTE | 2025-03-10 14:05 | A.OFFVIS_ITS ---
Vital Signs 03/10/25 14:05 Height 5 ft 9 in Weight 257 lb BMI 37.9 Intake Visit Reasons: POR- dressing change R TKA w/DR 03/08/25 Intake Note: Samy is a 65 year old male who presents today post-operatively after undergoing a right total knee arthroplasty on 03/08/25. Patient presents today for a dressing change, concerned his bandage is bloodied. Patient was advised to have it looked at by [facility]. He continues with his physical therapy exercises. He denies any fevers or chills. He does continue to walk with a walker. Allergies No Known Allergies Allergy (Verified 03/10/25 14:08) Medication List - Last Reconciled 03/10/25 by Danny Jay MD acetaminophen 650 mg (2 x 325 mg) PO Q6H PRN 30 days aspirin 325 mg PO BID 42 days budesonide-formoterol 80-4.5 mcg/actuation (Symbicort) 2 puffs inhalation Q12H celecoxib 200 mg PO BID 30 days cholecalciferol (vitamin D3) 50 mcg PO BEDTIME cyanocobalamin (vitamin B-12) 1,000 mcg PO BEDTIME diclofenac sodium 1% (Voltaren Arthritis Pain) 4 grams topical QID docusate sodium 100 mg PO BID 7 days folic acid 1 mg PO BEDTIME gabapentin 100 mg PO BEDTIME 7 days Lactobacillus acidophilus (Probiotic) 10,000 mmu cells PO QAM methocarbamol 500 mg PO TID 7 days nicotine apply 1-21 mg NICOTINE PATCH daily for 28 days; follow with 1-14 mg PATCH daily for 14 days, then 1-7mg PATCH daily for 14 days transdermal nicotine (polacrilex) (Nicorette) 2 mg buccal Q2H omeprazole 40 mg PO QAM oxycodone 5 mg PO Q4H PRN 7 days simvastatin 10 mg PO BEDTIME 90 days walker Folding front wheeled walker [facility] Medical History Arthritis Nicotine dependence, cigarettes, uncomplicated Impaired glucose tolerance Compression fracture of T6 vertebra Pulmonary nodule GERD (gastroesophageal reflux disease) Cervical compression fracture Lumbar disc herniation Obstructive sleep apnea Obesity (BMI 30-39.9) Hypercholesterolemia Vitamin D deficiency Tubular adenoma of colon Conley's esophagus Renal calculi Surgical History History of right knee surgery History of esophagogastroduodenoscopy (EGD) History of colonoscopy History of ventral hernia repair Social History Household Members: Other Household Members Other:: girlfriend Housing: House Are you a primary career technical education teacher to a significant other at home: No Do you presently have visiting nurse or other home services: No Alcohol intake: current Alcohol intake frequency: holidays/special occasions only Comment: once a week 6 drinks Patient Tobacco Use Status: Current everyday Tobacco user Tobacco use type: Cigarette Cigarette Packs Per Day: 1 Cigarettes Per Day: 20.0 Years Smoked: 52 e-Cigarette/Vaping Use: Never Used Second Hand Smoke Exposure: Yes service: No Current occupational status: employed Cognitive needs: No Hearing needs: No Vision needs: Yes Physical Exam Vital Signs: BMI result Body Mass Index 37.9 Extrem Other: Right knee examination shows that the surgical incision is healing well, mild sanguinous staining on his dressing, no active bleeding, mild discomfort with range of motion, no erythema Assessment & Plan Assessment & Plan (1) Right knee pain: Code(s): M25.561 - Pain in right knee Category: Medical Plan Mr. Muniz he is doing well after undergoing right total knee replacement surgery on 03/08/2025. His right knee dressing was changed. He was given extra sterile dressings to use as needed. He will continue with his physical therapy exercises. He will follow up in 2 weeks as scheduled. Feel free to call me at any time should questions regarding his orthopedic management arise. Coding Level of Care Code Global (53226) Diagnoses Right knee pain M25.561
--- OUTSIDE RECORDS SUMMARY | 2025-03-10 16:44 | XMS_ITS ---
Author Organization [facility] Address [address] [place] [phone] Care Team Providers Care Stack Clerk Name Role Phone Parish Son MD Primary Care Provider Mj Negrete [phone] Allergies No Known Allergies REASON FOR VISIT Patient presents today for barretts esophagus Medications Medication SIG (Take, Route, Fr equency, Duration) Notes Start Date End Date Status Omeprazole 40 MG 1 Orally Once a day every morning alf for 90 days 10/07/2024 Ac tive Folic [...] 02/11/2025 Encounters Encounter Location Date Provider Diagnosis [facility] [address] [place] [phone] 02/11/2025 Mj Mendoza Barretts esophagus without dysplasia [...] Notes * FLORINDA RUSSDOB:1960 (65 yo M)Acc No.[id number]:02/11/2025 Progress Notes Patient:?FLORINDA RUSS Provider:?Mj Mendoza MD :1960???Age:65 Y???Sex:Male Nathan e:02/11/2025 Address:[address] [place], [place] [id number] Pcp:Parish Son MD Subjective: * Chief Complaints: [...] in quitting??Thinking about quitting.?Miscellaneous:?Marital status: . 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 ???Smoker 1ppd; only occasional beer. * Medications:?TakingSimvastat in 10 MG Tablet 2 tablets in the evening Orally Once a day Omeprazole 40 MG Capsule Delayed Release 1 Orally Once a day every morning alf Folic Acid 1 MG Tablet 1 tablet Orally Once a day Vitamin B12 1000 MCG Tablet Extended Release 1 tablet Orally Once a day Vitamin D 1000 UNIT Capsule 1 capsule Orally Once a day Taking Simvastatin 10 MG Tablet 2 tablets in the evening Orally Once a day Taking Omeprazole 40 MG Capsule Delayed Release 1 Orally Once a day every morning alf Taking Folic Acid 1 MG Tablet 1 [...] Procedure Codes:?3017F COLOR ECTAL CA SCREEN DOC [id number] Pt scrn tbco and id as [id number] PREHTN/HTN BP DOC INDCD F/U DOC * [...] Mendoza MD Date:? 025 Generated for Harini parnell/Kt/Demetra on:?03/10/2025 04:44 PM EDT History and Physical Notes * [...]
--- OUTSIDE RECORDS SUMMARY | 2025-03-10 16:44 | XMS_ITS ---
Author Organization [facility] Address [address] [place] [phone] Care Team Providers Care Planer Operator Name Role Phone Parish Son MD Primary Care Provider Mj Negrete [phone] REASON FOR VISIT New Insurance Encounters Encounter Location Date Provider Diagnosis [facility] [address] [place] [phone] 01/06/2025 Mj Mendoza Plan Of Treatment No Information Progress Notes * FLORINDA RUSSDOB:1960 (64 yo M)Acc No.[id number]:01/06/2025 Patient:?FLORINDA RUSS :1960???Age:64 Y???Sex:Male Address:[address] [place] [address], [id number] * true * Date:? Generated for Harini parnell/Kt/eTransmitting on:?03/10/2025 04:44 PM EDT
--- OUTSIDE RECORDS SUMMARY | 2025-03-10 16:45 | XMS_ITS ---
Author Organization [facility] Address [address] [place] [phone] Care Team Providers Care Credit Advisor Name Role Phone Parish Son MD Primary Care Provider Mj Negrete [phone] REASON FOR VISIT please schedule f/u with Dr. Mendoza Encounters Encounter Location Date Provider Diagnosis [facility] [address] [place] [phone] 10/08/2024 Mj Mendoza Plan Of Treatment No Information Progress Notes * FLORINDA RUSSDOB:1960 (64 yo M)Acc No.[id number]:10/08/2024 Patient:?FLORINDA RUSS :1960???Age:64 Y???Sex:Male Address:[address] [place] [address], [address] * true * Date:? Generated for Harini parnell/Kt/eTransmitting on:?03/10/2025 04:44 PM EDT
--- OUTSIDE RECORDS SUMMARY | 2025-03-10 16:45 | XMS_ITS | Patient Health Record ---
Author Organization [facility]ly [facility] Address [address] [place] [address] Care Team Providers Care Banquet Captain Name Role Phone Parish Son MD Primary Care Provider Mj Negrete [phone] Allergies No Known Allergies Results Component Value Reference Range Notes Pathology Reviewed date:02/11/2025 09:52:09 AM Interpretation: Performing Lab:[facility], [address] [place] [phone] Notes/Report: Name: SolomonSamy buckner III Age/Sex: 64/M : 1960 Unit#: [id number] Attend Dr: Mj Mendoza MD Re10/07/24 Status : [facility] Disch: SPEC : [id number] RECD : 10/07/24 STATUS: DAKOTAH FORMAN NUM: [id number] GEOFF: 10/07/24-[address] [facility] [address]: Mj Mendoza MD ENTERED: 10/07/24 57 SP TYPE: Surgical OTHR DR: Parish Son MD ORDERED: HE Stain/3, Gross Micro L4/2, Eso bx BA w/exc COMMENTS: 8 unstaine d slides (Part B) sent to [employer] for TissueCypher on 10/09/24. Addendum Addendum 1 Entered: 10/26/24 (B): TissueCypher results: Risk Class:? Low Risk Score:? 0.6 (range 0 ? 10) 5-year probability o f progression:? 0.40% See entire scanned r eport in EMR - report/pathology section (camera icon). Addendum Signed ____ __(signature on file) Emy [place] 10/26/24 0901 Diagnosis A. Colon, at 30 [...] Muniz III Age/Sex: 64/M : 1960 Unit#: [id number] Attend Dr: Mj Mendoza MD Re10/07/24 Status : [facility] Location: [facility] Disch: SPEC : [id number] RECD : 10/07/24-1253 STATUS: DAKOTAH FORMAN NUM: [id number] GEOFF: 10/07/24-[address] [facility] [address]: Mj Mendoza MD ENTERED: 10/07/24-12 57 SP TYPE: Surgical OTHR DR: Parish Son MD ORDERED: HE Stain/3, Gross Micro L4/2, Eso bx BA w/exc COMMENTS: 8 unstaine d slides (Part B) sent to [employer] for TissueCypher on 10/09/24. Material Received A. [...] B. CEDS Copies To: Parish Son MD [facility] Primary Care,[place] [address] [place] [address] Mj Mendoza MD [facility] [address] [place] [address] Signed (si gnature on file) Emy [place] 10/08/24 1123 END OF REPORT Reason For Referral No Information Medications Medication SIG (Take, Route, Fr equency, Duration) Notes Start Date End Date Status Omeprazole 40 MG 1 Orally Once a day every morning intermediate for 90 days 10/07/2024 Ac tive Folic [...] Problem Status W/U Status Risk Notes Problem 739332195 Encounter for screening for malignant neoplasm of colon (Z12.11) Active confirmed Problem Diverticular disease of colon (016001504) Diverticulosis of large intestine without perforation or abscess without bleeding (K57.30) Active confirmed Problem 829450617 Gastroesophageal reflux disease without esophagitis (K21.9) Active confirmed Problem 907568705 Barretts esophag us without dysplasia (K22.70) Active confirmed Problem Benign neoplasm of stomach (63541147) Gastric polyps (K31.7) Active confirmed Problem 596928402 Hx of adenomatou s colonic polyps (Z86.010) Active confirmed Problem 265707406 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) Active confirmed Vital Signs Blood pressure diastolic 11 mm Hg 02/11/2025 Height 71.50 in 02/11/2025 Blood pressure systolic 111 mm Hg 02/11/2025 Weight 248 lbs 02/11/2025 BMI 34.1 kg/m2 02/11/2025 Encounters Encounter Location Date Provider Diagnosis [facility] Outpatient [address] [place], [place] [phone] 10/07/2024 Mj Mendoza Colon cancer screeni Z12.11 ; Colon polyps K63.5 ; Diverticulosis of large intestine without perforation or abscess without bleeding K57.30 ; Other hemorrhoids K64.8 ; Conley''s esophagus without dysplasia K22.70 ; Hiatal hernia K44.9 ; Gastric polyps K31.7 and Gastroesophageal reflux disease without esophagitis K21.9 [facility] [address] [place] [address] 07/07/2024 Mj Mendoza Barretts esophagus without dysplasia K22.70 ; Gastroesophageal reflux disease without esophagitis K21.9 ; Hx of adenomatous colonic polyps Z86.010 and Encounter for screening for malignant neoplasm of colon Z12.11 [facility] [address] [place] [address] 02/11/2025 Mj Mendoza Barretts esophagus without dysplasia K22.70 ; Gastroesophageal reflux disease without esophagitis K21.9 ; Hx of adenomatous colonic polyps Z86.010 and Encounter for screening for malignant neoplasm of colon Z12.11 [facility] [address] [place] [address] 10/07/2024 Mj Mendoza [facility] [address] [place] [address] 10/08/2024 Mj Mendoza [facility] [address] [place] [address] 01/06/2025 Mj Mendoza Assessments Encounter Date Diagnosis [...] neoplasm of colon (ICD-10 - Z12.11) .Overall, Saym appears to be doing well from a [...] Insured Coverage Start Date Coverage End Date [facility] Medicare Advantage Plan [address] [address] [place] [address] [id number] SAMY MUNIZ Self - patient is the insured Medical (General) History Medical History History ICD Code Denies [place],DM,CVA,Lung disease,renal dise ase GERD---EGD in 04/2012 and [...]
== END 2025-03-10 14:13 | disposition home or self-care (01) ==
LOC: HO.HOS 14:00
PROVIDERS: PCP Internal Medicine; Visit Provider Orthopaedic Surgery
DX: M25.561 Pain in right knee (principal)
CPT/HCPCS: 99024

== ENCOUNTER → 2025-03-10 14:00 | Outpatient (BNVA) | payer MEDICARE, SELFPAY | PROVIDERS: PCP Internal Medicine; Visit Provider Orthopaedic Surgery | DX: M25.561 Pain in right knee (principal); Z47.1 Aftercare following joint replacement surgery; Z96.651 Presence of right artificial knee joint | CPT/HCPCS: 99212 ==

== ENCOUNTER → 2025-03-19 23:59 | Outpatient (BNV) | payer MEDICARE, SELFPAY | PROVIDERS: PCP Internal Medicine; Visit Provider Internal Medicine | DX: M19.90 Unspecified osteoarthritis, unspecified site (principal); Z47.1 Aftercare following joint replacement surgery | CPT/HCPCS: G0180 ==

== ENCOUNTER 2025-03-25 08:21 | Outpatient (REF) | payer MEDICARE, SELFPAY ==
--- NOTE | ~2025-03-25 | XR_ITS ---
EXAMINATION: XR KNEE, RIGHT CLINICAL INFORMATION: M25.569 - Pain in unspecified knee COMPARISON: 03/04/2025 right knee radiographs. 12/15/2024 bilateral knee radiographs. TECHNIQUE: AP view bilateral knees standing, lateral and patellofemoral views right knee. FINDINGS: LEFT Knee: AP view demonstrates moderate medial compartment joint space narrowing, and spurring of the tibial spines. No fracture or bone lesion. Normal-appearing soft tissues. RIGHT Knee: There has been a total right knee arthroplasty. Femoral condyle and tibial components are intact, well seated, in anatomic alignment. There is been associated patellar resurfacing. No fracture or bone lesion. There are ventral skin stanley in the midline. There is anterior soft tissue swelling. There is a moderate size joint effusion present. XR/XR knee RT 3V IMPRESSION: 1. Total RIGHT knee arthroplasty without complication evident. 2. Moderate osteoarthrosis in the medial compartment LEFT knee. Electronically signed by: Juan Crawford MD 03/26/2025 10:10 AM EDT
== END 2025-03-25 08:22 | disposition home or self-care (01) ==
LOC: HO.HOSX 08:21
PROVIDERS: Visit Provider Physician Assistant
DX: M25.561 Pain in right knee (principal); Z96.651 Presence of right artificial knee joint
CPT/HCPCS: 73562; 99212

== ENCOUNTER 2025-03-25 12:18 | Outpatient (AMB) | payer MEDICARE, SELFPAY ==
--- NOTE | 2025-03-25 12:26 | MHC.OFFVIS ---
Intake Visit Reasons: 2WK PO: R TKA w/ 03/08/25 Intake Note: Samy is a 65 year old female who presents today for a post operative RT TKA, DOS 03/08/25 Patient is doing well he has been working with at home physical therapy. Allergies No Known Allergies Allergy (Verified 03/25/25 12:34) HPI HPI 2WK PO: R TKA w/ 03/08/25: Details: Mr. Flavio stephens is a 65-year-old male who presents to the office today status post right total knee arthroplasty performed by Dr. Jay on 03/08/2025. He is overall doing very well. He has been attending physical therapy with the [facility] services at home. He does have some soreness but overall is doing very well. He is only taking pain medication 1 in the morning and 1 at night. Occasionally he will take 1 tablet after physical therapy. [facility] Medical History Arthritis Nicotine dependence, cigarettes, uncomplicated Impaired glucose tolerance Compression fracture of T6 vertebra Pulmonary nodule GERD (gastroesophageal reflux disease) Cervical compression fracture Lumbar disc herniation Obstructive sleep apnea Obesity (BMI 30-39.9) Hypercholesterolemia Vitamin D deficiency Tubular adenoma of colon Conley's esophagus Renal calculi Surgical History History of right knee surgery History of esophagogastroduodenoscopy (EGD) History of colonoscopy History of ventral hernia repair Social History Household Members: Other Household Members Other:: girlfriend Housing: House Are you a primary patient care provider to a significant other at home: No Do you presently have visiting nurse or other home services: No Alcohol intake: current Alcohol intake frequency: holidays/special occasions only Comment: once a week 6 drinks Patient Tobacco Use Status: Current everyday Tobacco user Tobacco use type: Cigarette Cigarette Packs Per Day: 1 Cigarettes Per Day: 20.0 Years Smoked: 52 e-Cigarette/Vaping Use: Never Used Second Hand Smoke Exposure: Yes service: No Current occupational status: employed Cognitive needs: No Hearing needs: No Vision needs: Yes Review of Systems Const All systems reviewed & are unremarkable except as noted in HPI and below Physical Exam Const General: cooperative, healthy appearing and no acute distress Resp Effort & Inspection: normal respiratory effort and able to speak in complete sentences Extrem Other: Right knee incision site is clean dry and intact. Fountain intact. No surrounding erythema or drainage. No signs of infection. Range of motion 10-110 degrees. NVI. Assessment & Plan Assessment & Plan (1) Status post total knee replacement, right: Code(s): Z96.651 - Presence of right artificial knee joint Category: Surgical Plan Mr. Flavio stephens is a 65-year-old male who presents to the office today status post right total knee arthroplasty performed by Dr. Jay on 03/08/2025. He is overall doing very well. He has been attending physical therapy with the [facility] services at home. He does have some soreness but overall is doing very well. He is only taking pain medication 1 in the morning and 1 at night. Occasionally he will take 1 tablet after physical therapy. On the office today, stanley were removed and Steri-Strips were applied. If physical therapy for outpatient services was placed while in the office today. He will follow up in [address] Jay, sooner if needed. X-rays of the right knee which were obtained while in the office today and were reviewed by me, Emperatriz Cooper PA-C, revealed intact total knee arthroplasty with satisfactory alignment. Orders: Orders XR knee RT 3V Today M25.569 - Pain in unspecified knee Coding Level of Care Code Global (90505) Diagnoses Status post total knee replacement, right Z96.651
== END 2025-03-25 12:55 | disposition home or self-care (01) ==
LOC: HO.HOS 12:18
PROVIDERS: PCP Internal Medicine; Visit Provider Physician Assistant
DX: Z96.651 Presence of right artificial knee joint (principal)
CPT/HCPCS: 99024

== ENCOUNTER → 2025-03-25 12:19 | Outpatient (BNV) | payer MEDICARE, SELFPAY | PROVIDERS: Visit Provider Radiology Diagnostic Radiology | DX: M25.561 Pain in right knee (principal) | CPT/HCPCS: 73562 ==

== ENCOUNTER 2025-04-15 | Outpatient (REF) | payer MEDICARE, SELFPAY ==
--- OUTSIDE RECORDS SUMMARY | 2024-10-07 07:00 | XMS_ITS ---
Author Organization [facility] Address [address] [place] [id number] Care Team Providers Care Horse Wrangler Name Role Phone Po Parish ODELL Primary Care Provider Mj Negrete [phone] REASON FOR VISIT valenzuela's,gerd,screening,hx polyps Medications Medication SIG (Take, Route, Frequency, Duration) Notes Start Date End Date Status Folic Acid 1 MG 1 tablet Orally Once a day for 30 day(s) Active Vitamin B12 1000 MCG 1 tablet Orally Onc e a day for 30 day(s) Active Omeprazole 20 mg TAKE 1 CAPSULE BY [facility] EVERY DAY for 30 Active Atorvastatin Calcium 10 MG 1 tablet Oral ly Once a day for 30 day(s) 12/10/2018 Active Vitamin D 1000 UNIT 1 capsule Orally Onc e a day for 30 day(s) Active Problems Problem Type SNOMED Code ICD Code Onset Dates Problem Status W/U Status Risk Notes Problem Diverticular disease of colon (144756163) Diverticulosis of large intestine without perforation or abscess without bleeding (K57.30) Active confirmed Problem Gastric polyps (K31.7) Active confirmed Encounters Encounter Location Date Provider Diagnosis [facility] [place] Outpatient [address] [place] [phone] 10/07/2024 Mj Mendoza Colon cancer screeni ng Z12.11 ; Colon polyps K63.5 ; Diverticulosis of large intestine without perforation or abscess without bleeding K57.30 ; Other hemorrhoids K64.8 ; Valenzuela''s esophagus without dysplasia K22.70 ; Hiatal hernia K44.9 ; Gastric polyps K31.7 and Gastroesophageal reflux disease without esophagitis K21.9 Assessments Encounter Date Diagnosis (ICD Code) Assessment Notes Treatment Notes Treatment Clinical Notes Section Notes 10/07/2024 Colon cancer screening (ICD-10 - Z12.11) 10/07/2024 Colon polyps (ICD-10 - K63.5) 10/07/2024 Diverticulosis of large intestine without perforation or abscess without bleeding (ICD-10 - K57.30) 10/07/2024 Other hemorrhoids (ICD-10 - K64.8) 10/07/2024 Valenzuela''s esophagus without dysplasia (ICD-10 - K22.70) 10/07/2024 Hiatal hernia (ICD-10 - K44.9) 10/07/2024 Gastric polyps (ICD-10 - K31.7) 10/07/2024 Gastroesophageal reflux disease without esophagitis (ICD-10 - K21.9) Plan Of Treatment No Information Progress Notes * FLORINDA RUSSDOB:1960 (65 yo M)Acc No.[id number]:10/07/2024 EGD and COL/MAC Patient: Debi FLORINDA JASSO Provider: Aimee Mendoza MD :1960 A ge:64 Y S ex:Male Date:10/07/2024 Address:[address] [place] [address] Pcp:Parish Son MD Subjective: * Chief Complaints: * 1 . Valenzuela's,gerd,screening,hx polyps. * Medical History: * Medications: T aking Omeprazole 20 mg capsule TAKE 1 CAPSULE BY MOUTH EVERY DAY , Taking Folic Acid 1 MG Tablet 1 tablet Orally Once a day , Taking Vitamin B12 1000 MCG Tablet Extended Release 1 tablet Orally Once a day , Taking Atorvastatin Calcium 10 MG Tablet 1 tablet Orally Once a day , Taking Vitamin D 1000 UNIT Capsule 1 capsule Orally Once a day Objective: * Vitals: Assessment: * Assessment: 1. C olon cancer screening - Z12.11 (Primary) 2 . C olon polyps - K63.5? 3. D iverticulosis of large intestine without perforation or abscess without bleeding - K57.30 4 . O ther hemorrhoids - K64.8 5 . B arrett''s esophagus without dysplasia - K22.70 6 . H iatal hernia - K44.9 7 . G astric polyps - K31.7 8 . G astroesophageal reflux disease without esophagitis - K21.9 Plan: * Treatment: * Procedure Codes: 4 5385 LESION REMOVAL COLONOSCOPY, Modifiers: 33 , [address]009 UPPER GI ENDOSCOPY, BIOPSY * * The named appointment provid er may or may not be the originator of this progress note, and it is not deemed complete until electronically signed by the appointment provider. Sign off status: Pending * Provider: Aimee Mendoza MD Date: 1 12/07/2023 Generated for Harini parnell/Kt/Asifitting on: 0 05/25/2025 07:38 AM EDT
== END 2025-04-15 00:01 | disposition home or self-care (01) ==
LOC: CF
PROVIDERS: PCP Internal Medicine; Visit Provider Orthopaedic Surgery
DX: R91.8 Other nonspecific abnormal finding of lung field (principal); M25.561 Pain in right knee; Z96.651 Presence of right artificial knee joint
CPT/HCPCS: 99212

== ENCOUNTER 2025-04-15 12:34 | Outpatient (AMB) | payer MEDICARE, SELFPAY ==
--- OUTSIDE RECORDS SUMMARY | 2025-04-15 12:37 | XMS_ITS ---
Author Organization [facility] Address [address] [place] [address] Care Team Providers Care Cake Wringer Name Role Phone Parish Son MD Primary Care Provider Mj Negrete [phone] Allergies No Known Allergies REASON FOR VISIT Patient presents today for barretts esophagus Medications Medication SIG (Take, Route, Fr equency, Duration) Notes Start Date End Date Status Omeprazole 40 MG 1 Orally Once a day every morning termite helper for 90 days 10/07/2024 Ac tive Folic [...] 02/11/2025 Encounters Encounter Location Date Provider Diagnosis [facility] [address] [place] [address] 02/11/2025 Mj Mendoza Barretts esophagus without dysplasia [...] Notes * FLORINDA RUSSDOB:1960 (65 yo M)Acc No.[id number]:02/11/2025 Progress Notes Patient:?FLORINDA RUSS Provider:?Mj Mendoza MD :1960???Age:65 Y???Sex:Male Nathan e:02/11/2025 Address:[address] [place], [place] [phone] Pcp:Parish Son MD Subjective: * Chief Complaints: [...] in quitting??Thinking about quitting.?Miscellaneous:?Marital status: . 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 ???Smoker 1ppd; only occasional beer. * Medications:?TakingSimvastat in 10 MG Tablet 2 tablets in the evening Orally Once a day Omeprazole 40 MG Capsule Delayed Release 1 Orally Once a day every morning termite helper Folic Acid 1 MG Tablet 1 tablet [...] Orally Once a day every morning mcc Taking Folic Acid 1 MG Tablet 1 [...] Procedure Codes:?3017F COLOR ECTAL CA SCREEN DOC [id number] Pt scrn tbco and id as [id number] PREHTN/HTN BP DOC INDCD F/U DOC * [...] MD Date:? 025 Generated for Harini parnell/Kt/Demetra on:?04/15/2025 12:37 PM EDT History and Physical Notes * [...]
--- OUTSIDE RECORDS SUMMARY | 2025-04-15 12:37 | XMS_ITS | Patient Health Record ---
Author Organization [facility] Address [address] [place] [address] Care Team Providers Care Business Center Manager Name Role Phone Parish Son MD Primary Care Provider Mj Negrete [phone] Allergies No Known Allergies Results Component Value Reference Range Notes Pathology Reviewed date:02/11/2025 09:52:09 AM Interpretation: Performing Lab:[facility], [address] [place] [phone] Notes/Report: Name: BethanySamy may III Age/Sex: 64/M : 1960 Unit#: [id number] Attend Dr: Mj Mendoza MD Re10/07/24 Status : [facility] Disch: SPEC : [id number] RECD : 10/07/24 STATUS: DAKOTAH FORMAN NUM: [id number] GEOFF: 10/07/24-5 [facility] DR: Mj Mendoza MD ENTERED: 10/07/24 57 SP TYPE: Surgical OTHR DR: Parish Son MD ORDERED: HE Stain/3, Gross Micro L4/2, Eso bx BA w/exc COMMENTS: 8 unstaine d slides (Part B) sent to [employer] for TissueCypher on 10/09/24. Addendum Addendum 1 [...] Muniz III Age/Sex: 64/M : 1960 Unit#: [id number] Attend Dr: Mj Mendoza MD Re10/07/24 Status : [facility] Location: [facility] Disch: SPEC : [id number] RECD : 10/07/24-1253 STATUS: DAKOTAH FORMAN NUM: [id number] GEOFF: 10/07/24-1155 [facility] DR: Mj Mendoza MD ENTERED: 10/07/24-12 57 SP TYPE: Surgical OTHR DR: Parish Son MD ORDERED: HE Stain/3, Gross Micro L4/2, Eso bx BA w/exc COMMENTS: 8 unstaine d slides (Part B) sent to [employer] for TissueCypher on 10/09/24. Material Received A. [...] B. CEDS Copies To: Parish Son MD [facility] Primary Care,[place] [address] [place] [address] Mj Mendoza MD [facility] [address] [place] [address] Signed (si gnature on file) Emy Anthony [...] Problem Status W/U Status Risk Notes Problem 094206251 Encounter for screening for malignant neoplasm of colon (Z12.11) Active confirmed Problem Diverticular disease of colon (904053764) Diverticulosis of large intestine without perforation or abscess without bleeding (K57.30) Active confirmed Problem 432385368 Gastroesophageal reflux disease without esophagitis (K21.9) Active confirmed Problem 878785419 Barretts esophag us without dysplasia (K22.70) Active confirmed Problem Gastric polyps (K31.7) Active confirmed Problem 753997895 Hx of adenomatou s colonic polyps (Z86.010) Active confirmed Problem 941938053 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) Active confirmed Vital Signs Blood pressure diastolic 11 mm Hg 02/11/2025 Height 71.50 in 02/11/2025 Blood pressure systolic 111 mm Hg 02/11/2025 Weight 248 lbs 02/11/2025 BMI 34.1 kg/m2 02/11/2025 Encounters Encounter Location Date Provider Diagnosis [facility] Outpatient [address] [place], [place] [phone] 10/07/2024 Mj Mendoza Colon cancer screeni ng Z12.11 ; Colon polyps K63.5 ; Diverticulosis of large intestine without perforation or abscess without bleeding K57.30 ; Other hemorrhoids K64.8 ; Conley''s esophagus without dysplasia K22.70 ; Hiatal hernia K44.9 ; Gastric polyps K31.7 and Gastroesophageal reflux disease without esophagitis K21.9 [facility] [address] [place] [address] 07/07/2024 Mj Mendoza Barretts esophagus without dysplasia K22.70 ; Gastroesophageal reflux disease without esophagitis K21.9 ; Hx of adenomatous colonic polyps Z86.010 and Encounter for screening for malignant neoplasm of colon Z12.11 [facility] [address] [place] [address] 02/11/2025 Mj Mendoza Barretts esophagus without dysplasia K22.70 ; Gastroesophageal reflux disease without esophagitis K21.9 ; Hx of adenomatous colonic polyps Z86.010 and Encounter for screening for malignant neoplasm of colon Z12.11 [facility] [address] [place] [address] 10/07/2024 Mj Mendoza [facility] [address] [place] [address] 10/08/2024 Mj Mendoza [facility] [address] [place] [address] 01/06/2025 Mj Mendoza Assessments Encounter Date Diagnosis [...] Insured Coverage Start Date Coverage End Date [facility] Medicare Advantage Plan [address] [address] [place] [address] [id number] SAMY MUNIZ Self - patient is the insured Medical (General) History Medical History History ICD Code Denies [place],DM,CVA,Lung disease,renal dise ase GERD---EGD in 04/2012 and 2014--with a mod-sized HH and Conley's esophagus--no dysplasia Colonoscopy in 04/2012-tubular adenomas r emoved Sleep apnea--not using CPAP--insurance w ouldn't pay for it Hyperlipidemia Colonoscopy in March of 2019 w ith multiple small tubular adenomas and hyperplastic polyps removed Upper endoscopy in March with some esophagitis and small area of [...]
--- OUTSIDE RECORDS SUMMARY | 2025-04-15 12:37 | XMS_ITS ---
Author Organization [facility] Address [address] [place] [address] Care Team Providers Care Furniture Salesperson Name Role Phone Parish Son MD Primary Care Provider Mj Negrete [phone] REASON FOR VISIT New Insurance Encounters Encounter Location Date Provider Diagnosis [facility] [address] [place] [address] 01/06/2025 Mj Mendoza Plan Of Treatment No Information Progress Notes * FLORINDA RUSSDOB:1960 (64 yo M)Acc No.[id number]:01/06/2025 Patient:?FLORINDA RUSS :1960???Age:64 Y???Sex:Male Address:[address] [place] [address], [address] * true * Date:? Generated for Harini parnell/Kt/eTransmitting on:?04/15/2025 12:37 PM EDT
--- OUTSIDE RECORDS SUMMARY | 2025-04-15 12:38 | XMS_ITS ---
Author Organization [facility] Address [address] [place] [address] Care Team Providers Care Credit Advisor Name Role Phone Parish Son MD Primary Care Provider Mj Negrete [phone] REASON FOR VISIT please schedule f/u with Dr. Mendoza Encounters Encounter Location Date Provider Diagnosis [facility] [address] [place] [phone] 10/08/2024 Mj Mendoza Plan Of Treatment No Information Progress Notes * FLORINDA RUSSDOB:1960 (64 yo M)Acc No.[id number]:10/08/2024 Patient:?FLORINDA RUSS :1960???Age:64 Y???Sex:Male Address:[address] [place] [address], [address] * true * Date:? Generated for Harini parnell/Kt/eTransmitting on:?04/15/2025 12:37 PM EDT
--- NOTE | 2025-04-15 12:44 | MHC.OFFVIS ---
Vital Signs 04/15/25 12:45 Height 5 ft 9 in Weight 257 lb BMI 37.9 Intake Visit Reasons: 6WK PO: R TKA w/DR 03/08/25 Intake Note: Samy is a 65 year old male who presents to the office today status post right total knee arthroplasty performed on 03/08/2025. Patient reports he is doing well. He continues going to physical therapy. He denies any fevers or chills. Allergies No Known Allergies Allergy (Verified 04/15/25 12:46) Medication List - Last Reconciled 04/15/25 by Danny Jay MD acetaminophen 650 mg (2 x 325 mg) PO Q6H PRN 30 days aspirin 325 mg PO BID 42 days budesonide-formoterol 80-4.5 mcg/actuation (Symbicort) 2 puffs inhalation Q12H celecoxib 200 mg PO BID 30 days cholecalciferol (vitamin D3) 50 mcg PO BEDTIME cyanocobalamin (vitamin B-12) 1,000 mcg PO BEDTIME diclofenac sodium 1% (Voltaren Arthritis Pain) 4 grams topical QID docusate sodium 100 mg PO BID 7 days folic acid 1 mg PO BEDTIME gabapentin 100 mg PO BEDTIME 7 days Lactobacillus acidophilus (Probiotic) 10,000 mmu cells PO QAM methocarbamol 500 mg PO TID 7 days nicotine apply 1-21 mg NICOTINE PATCH daily for 28 days; follow with 1-14 mg PATCH daily for 14 days, then 1-7mg PATCH daily for 14 days transdermal nicotine (polacrilex) (Nicorette) 2 mg buccal Q2H omeprazole 40 mg PO QAM oxycodone 5 mg PO Q6H PRN simvastatin 10 mg PO BEDTIME 90 days walker Folding front wheeled walker [facility] Medical History Arthritis Nicotine dependence, cigarettes, uncomplicated Impaired glucose tolerance Compression fracture of T6 vertebra Pulmonary nodule GERD (gastroesophageal reflux disease) Cervical compression fracture Lumbar disc herniation Obstructive sleep apnea Obesity (BMI 30-39.9) Hypercholesterolemia Vitamin D deficiency Tubular adenoma of colon Conley's esophagus Renal calculi Surgical History History of right knee surgery History of esophagogastroduodenoscopy (EGD) History of colonoscopy History of ventral hernia repair Social History Household Members: Other Household Members Other:: girlfriend Housing: House Are you a primary healthcare applications analyst to a significant other at home: No Do you presently have visiting nurse or other home services: No Alcohol intake: current Alcohol intake frequency: holidays/special occasions only Comment: once a week 6 drinks Patient Tobacco Use Status: Current everyday Tobacco user Tobacco use type: Cigarette Cigarette Packs Per Day: 1 Cigarettes Per Day: 20.0 Years Smoked: 52 e-Cigarette/Vaping Use: Never Used Second Hand Smoke Exposure: Yes service: No Current occupational status: employed Cognitive needs: No Hearing needs: No Vision needs: Yes Physical Exam Vital Signs: BMI result Body Mass Index 37.9 Extrem Other: Right knee examination shows that the surgical incision is well healed, no erythema, full active extension and flexion to 110 degrees, his patella tracks well Assessment & Plan Assessment & Plan (1) Right knee pain: Code(s): M25.561 - Pain in right knee Category: Medical Plan Samy continues to do very well after undergoing right total knee replacement surgery on 02/23/2025. He will continue going to formal physical therapy for now. He will gradually transition to a home exercise program. He does know to take antibiotics before any dental work. I did refill his prescription for oxycodone. He will contact me prior to his follow-up appointment in 6-8 weeks should any questions or concerns arise. Feel free to call me at any time should questions regarding his orthopedic management arise. Medications: New amoxicillin Take four caps (2,000 mg) one hour before any dental work. 2,000 mg (4 x 500 mg) PO ONCE 20 caps 3RF Refilled oxycodone Partial Fill upon patient request. 5 mg PO Q6H PRN 40 tabs 0RF pain Coding Level of Care Code Global (65205) Diagnoses Right knee pain M25.561
[2025-04-15 12:45] VITALS: BMI 37.9
== END 2025-04-15 13:01 | disposition home or self-care (01) ==
LOC: HO.HOS 12:34
PROVIDERS: PCP Internal Medicine; Visit Provider Orthopaedic Surgery
DX: M25.561 Pain in right knee (principal)
CPT/HCPCS: 99024

== ENCOUNTER 2025-04-16 08:05 | Outpatient (RCR) | payer MEDICARE, SELFPAY ==
--- NOTE | 2025-04-02 08:45 | MHC.PT.EP ---
[facility] [place] Office [place] Office [place] Office [address] [place] [address] [phone] F: [phone] F: [phone] F: [phone] F: [phone] Physical Therapy Plan of Care Date of Evaluation: 04/02/25 Date of Surgery: 03/18/2025 Diagnosis: R TKA 03/08 Assessment: Patient is a 65 year old male presenting to PT s/p R TKA 03/08/2025. He presents today with impairments in pain, ROM, strength. Pt's current occupation is none, with baseline physical activities including ambulating, stair negotiation, ADLs. 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 Clinical presentation today is most consistent with signs and sx associated with s/p R TKA 03/08/2025 and pt will benefit from skilled PT 2 week x 4 weeks to address the following problems and impairments noted upon evaluation: pain, ROM, strength. These problems limit the patient with the following functional activities: ambulating, stair negotiation, ADLs. The prescribed treatment plan of care is medically necessary. Co-morbidities of none were identified and taken into considerations of plan of care. Pt was educated on HEP, role of PT, prognosis, POC. Frequency and Duration: The patient will be seen 2 x week x 4 weeks Short Term Goals: Pt will demonstrate R knee ext to 0 in 2 weeks. Pt will demonstrate improved hip MMT strength by 1/3 grade in 2 weeks. Pt will demonstrate improved R knee MMT strength by 1/3 grade in 2 weeks. Nursing Home Goals: Pt will demonstrate improved LEFI score by 9 points in 4 weeks for improved functional mobility. Pt will demonstrate ability to ambulate with normal mechanics in 4 weeks for return to PLOF. Pt will demonstrate ability to negotiate stairs with min to no pain in 4 weeks for improved access to his home. Treatment Plan: Modalities to reduce pain, spasms and effusion. Manual therapy to restore motion and function. Therapeutic exercise to improve strength and flexibility. Neuromuscular re-education for posture and balance. Therapeutic activities to return to functional activities of daily living. Electronically signed by: Lani Santamaria, PT, DPT, ATC Please sign and return to therapist. Thank you for your referral.
--- NOTE | 2025-05-10 07:45 | MHC.PT.DC ---
[facility] [place] Office [place] Office [place] Office [address] [phone] F: [phone] F: [phone] F: [phone] F: [phone] Physical Therapy Discharge Report Diagnosis: R TKA 03/08 Date of Surgery: 03/18/2025 Date of Evaluation: 04/02/25 Date of Discharge: 05/10/25 Treatments to Date: 5 Cancellations to Date: 4 No Shows to Date: 0 Discharge Status: Patient Elected to Stop Discharge Summary: Pt cancelled all his remaining appointments. Therefore to be d/c. Electronically signed by: Lani Santamaria, PT, DPT, ATC Please sign and return to therapist. Thank you for your referral.
== END 2025-05-10 07:45 | disposition home or self-care (01) ==
LOC: HO.PTCHIC 08:05
PROVIDERS: PCP Internal Medicine; Visit Provider Physician Assistant
DX: Z47.1 Aftercare following joint replacement surgery (principal); Z96.651 Presence of right artificial knee joint
CPT/HCPCS: 97110; 97161

== ENCOUNTER 2025-05-03 10:34 | Outpatient (AMB) | payer MEDICARE, SELFPAY ==
[2025-05-03 10:37] VITALS: BP 134/82; PULSE 75; TEMP 36.1; O2SAT 97; BMI 36.3
--- NOTE | 2025-05-03 10:37 | A.OFFPC_ITS ---
Vital Signs 05/03/25 10:37 Height 5 ft 9 in Weight 246 lb 2 oz BMI 36.3 BP 134/82 Blood Pressure Location Lt brachial Position Sitting Pulse 75 Pulse Source Pulse Oximeter Temp 97.0 F Temp Source Temporal Artery Scan Pulse Oximetry (%) 97 Oxygen Delivery Method Room Air Intake Visit Reasons: Cholesterol Allergies No Known Allergies Allergy (Verified 05/03/25 10:37) Tobacco use date assessed: 05/03/25 Fall risk assessment: 1 Fall in past year Last assessed Fall Risk: 05/03/25 Dental Screening Dental Screen Date: 05/03/25 Did you have a dental visit in the last 12 months?: Yes Did you have a dental problem in the last 6 months where you did not have access to dental care?: No Was dental information given to patient?: Patient has dentist [facility] Medical History Arthritis Nicotine dependence, cigarettes, uncomplicated Impaired glucose tolerance Compression fracture of T6 vertebra Pulmonary nodule GERD (gastroesophageal reflux disease) Cervical compression fracture Lumbar disc herniation Obstructive sleep apnea Obesity (BMI 30-39.9) Hypercholesterolemia Vitamin D deficiency Tubular adenoma of colon Conley's esophagus Renal calculi Surgical History History of right knee surgery History of esophagogastroduodenoscopy (EGD) History of colonoscopy History of ventral hernia repair Social History Household Members: Other Household Members Other:: girlfriend Housing: House Are you a primary customer care consultant to a significant other at home: No Do you presently have visiting nurse or other home services: No Alcohol intake: current Alcohol intake frequency: holidays/special occasions only Comment: once a week 6 drinks Patient Tobacco Use Status: Current everyday Tobacco user Tobacco use type: Cigarette Cigarette Packs Per Day: 1 Cigarettes Per Day: 20.0 Years Smoked: 52 Packs Per Year: 52 Packs per year/per ci.00 e-Cigarette/Vaping Use: Never Used Second Hand Smoke Exposure: Yes service: No Current occupational status: employed Cognitive needs: No Hearing needs: No Vision needs: Yes Questionnaire PHQ-9 Over the last 2 weeks, how often have you been bothered by any of the following problems? 1. Little interest or pleasure in doing things: more than half the days 2. Feeling down, depressed, or hopeless: not at all 3. Trouble falling or staying asleep, or sleeping too much: more than half the days 4. Feeling tired or having little energy: more than half the days 5. Poor appetite or overeating: more than half the days 6. Feeling bad about yourself - or that you are a failure or have let yourself or your family down: not at all 7. Trouble concentrating on things, such as reading the newspaper or watching television: not at all 8. Moving or speaking so slowly that other people could have noticed. Or the opposite - being so fidgety or restless that you have been moving around a lot more than usual: not at all 9. Thoughts that you would be better off or of hurting yourself in some way: not at all Total score: 8 Source: Developed by Drs. Mj Hansen, Eliane Santos, Paramjit Winston and colleagues, with an educational danielle from [employer]. Thrive Questionnaire Date Thrive assessed: 04/26/25 I am a: Patient What is your living situation today?: I have a steady place to live Within the past 12 months, did the food you bought not last and you didn't have the money to get more?: Never true Within the past 12 months, did you worry whether your food would run out before you got money to buy more?: Never true Do you have trouble paying for medicines?: No Do you have trouble getting transportation to medical appointments?: No Do you have trouble paying your heating and electricity bill?: I choose not to answer this question Do you have trouble taking care of your child, family member or friend?: No Do you have trouble with day-to-day activities such as bathing, preparing meals, shopping, managing finances, etc.?: No Are you currently unemployed and looking for a job?: No Are you interested in more education?: No Please select the resources that you would like help with: None Currently or been in a relationship where the following occur: No concerns reported THRIVE Score: 0 AUDIT C Alcohol Use Questionnaire (AUDIT-C) 1. How often do you have a drink containing alcohol?: 2-4 times a month 2. How many drinks containing alcohol do you have on a typical day when you are drinking?: 1 or 2 3. How often do you have six or more drinks on one occasion?: Monthly Total Score: 4 JAZ-7 AMB Questionnaire JAZ-7 Date JAZ - 7 assessed: 05/03/25 Feeling nervous, anxious, or on edge: 0 = Not at all Not being able to stop or control worryin = Not at all Worrying too much about different things: 0 = Not at all Trouble relaxin = Not at all Being so restless that it is hard to sit still: 0 = Not at all Becoming easily annoyed or irritable: 0 = Not at all Feeling afraid as if something awful might happen: 0 = Not at all Total JAZ-7 score (0-4 normal; 5-9 mild; 10-14 moderate; 15-21 severe): 0 Source: Developed by Drs. Mj Hansen, Eliane Santos, Paramjit Winston and colleagues, with an educational danielle from [employer]. Physical exam (Primary Care) Vital Signs: Last Vital Signs Temp 97.0 F 05/03/25 10:37 Pulse 75 05/03/25 10:37 BP 134/82 05/03/25 10:37 Pulse Ox 97 05/03/25 10:37 Oxygen Delivery Method Room Air 05/03/25 10:37 BMI result Body Mass Index 36.3 Tobacco/Smoking Status: Tobacco use Status Tobacco use date assessed 05/03/25 05/03/25 10:43 Patient Tobacco Use Status Current everyday Tobacco 05/03/25 10:43 Tobacco use type Cigarette 05/03/25 10:43 e-Cigarette/Vaping Use Never Used 05/03/25 10:43 PHQ-9: PHQ-9 Score PHQ-9: Total score 8 05/03/25 11:11 Thrive Assessment: Date of Thrive Assessment Date Thrive assessed 04/26/25 05/03/25 10:43 Currently or been in a relationship where the following occur: No concerns reported Const General: alert; No acute distress Eyes Conjunctivae: conjunctivae normal Resp Auscultation: clear to auscultation bilaterally Cardio Rate: regular rate Rhythm: regular rhythm GI Inspection: Yes normal to inspection Extrem General: Yes normal to inspection and No edema Immunizations pneumoc 20-barrington conj-dip cr(PF) 0.5 mL IM syringe Performing Provider: Parish Son MD Performing Location: [facility] Administered by: Marsha Gutierres CMA on 05/03/25 11:11 Dose Route Admin Location Dispensed Lot Number Expiration Date NDC Lumber Inspector 0.5 mL IM Left Tricep 0.5 mL [id number] 01/23/26 6341-2317-42 [employer]YETH/PFIZER VIS Given Date VIS Provided VIS Publication Date 05/03/25 Single Vaccine 21 Eligibility Eligibility Date Funding Source Not [facility] Eligible 05/03/25 Private Coding Level of Care Code Est Pt Level 4 (64315) Complex EM visit Add On G2211 Diagnoses Status post total knee replacement, right Z96.651 COPD (chronic obstructive pulmonary disease) J44.9 Multiple pulmonary nodules R91.8 Hypercholesterolemia E78.00 Impaired glucose tolerance R73.02 Conley's esophagus without dysplasia K22.70 Conley's esophagus type: without dysplasia Obesity (BMI 30-39.9) E66.9 Assessment & Plan Assessment & Plan (1) Status post total knee replacement, right: Code(s): Z96.651 - Presence of right artificial knee joint Category: Surgical Plan: Continue to follow-up with orthopedics and physical therapy has been done in basically patient is aware of exercising (2) COPD (chronic obstructive pulmonary disease): Code(s): J44.9 - Chronic obstructive pulmonary disease, unspecified Category: Medical Plan: Patient is strongly advised to stop smoking! (3) Multiple pulmonary nodules: Comment: 01/2024 Code(s): R91.8 - Other nonspecific abnormal finding of lung field Category: Medical Plan: Reminded about follow-up CT scan for lung cancer screening. question about insurance (4) Hypercholesterolemia: Code(s): E78.00 - Pure hypercholesterolemia, unspecified Category: Medical Plan: Avoid fried foods, chicken skin, eggs, butter margarine, pastries and meat. Be it pork or beef they have a lot of cholesterol on simvastatin 10 mg at bedtime LDL goal of less than 130 and triglyceride of less than 150 (5) Impaired glucose tolerance: Code(s): R73.02 - Impaired glucose tolerance (oral) Category: Medical Plan: Decrease the amount of carbohydrate intake, pasta, bread, rice and potatoes are all sugar and that is aside from all the sweet stuff, remember that fruits are good but they are Sweet also. (6) Conley's esophagus: Code(s): K22.70 - Conley's esophagus without dysplasia Category: Medical Qualifiers: Conley's esophagus type: without dysplasia Qualified Code(s): K22.70 - Conley's esophagus without dysplasia Plan: Patient is strongly advised to stop smoking! Avoid the foods that causes that usually spicy foods, tomato products, juices, coffee, soda and foods that your sensitive to. After eating do not lie down, allow 3-4 hours before in lie down. And keep the head of bed above 30 degrees to avoid the acid from going up. On omeprazole (7) Obesity (BMI 30-39.9): Code(s): E66.9 - Obesity, unspecified Category: Medical Plan: Diet and exercise Plan History of Present Illness The patient is a 65-year-old male presenting for follow-up management of chronic conditions and preventive care. He has a history of obesity and smoking. In September 2024, he had a tubular adenoma detected during a colonoscopy. Currently managing GERD and Conley's esophagus, the patient experiences obstructive sleep apnea without the use of a CPAP device. There is a history of impaired glucose tolerance, hypercholesterolemia, and chronic obstructive pulmonary disease (COPD), the latter diagnosed with mild to moderate ventilatory restriction absent a bronchodilator response confirmed by PFTs and a chest X-ray. Postoperatively following right knee arthroplasty on March 08, 2025, the patient continues with physical therapy. The preoperative consultation in January showed mild anemia with stable electrolytes. His cholesterol readings in November indicated an LDL of 102 mg/dL. Notable weight loss of 11 pounds has occurred since March. Scheduled preventive surveillance includes an endoscopy and colonoscopy in September 2027. Omeprazole remains part of his GERD management, and he is repeatedly advised to discontinue smoking, with plans for lung cancer screening via a follow-up CT scan. The patient's cholesterol is to be managed with s imvastatin, aiming for cholesterol and triglyceride targets at healthier levels. Lifestyle intervention supports dietary changes and exercise to control GERD, manage weight, and lower cardiovascular risks. Health Maintenance - Planned surveillance colonoscopy and endoscopy in September 2027 for Conley's Esophagus - CT scan ordered for lung cancer screening - Ongoing physical therapy post right knee arthroplasty - Continuous use of omeprazole for GERD - Simvastatin 10 mg for hypercholesterolemia management with LDL target <130 mg/dL and triglyceride goal <150 mg/dL - Smoking cessation strongly advised - Recommended diet moderation and exercise for weight management and GERD control - Regular follow-up with orthopedics Social History - Obese - Current smoker - Recent 11-pound weight loss as of March Review of Systems - Gastrointestinal: Reports gastroesophageal reflux disease - Respiratory: Reports obstructive sleep apnea, denies CPAP use; Reports impaired glucose tolerance - Cardiovascular: Reports hypercholesterolemia - Musculoskeletal: Status post right knee replacement - Hematological: Reports mild anemia Physical Exam Results - Labs: Mild anemia with a hemoglobin level of 13.4 g/dL; LDL level of 102 mg/dL as of November; Normal electrolytes - Tests and Diagnostics: Pulmonary function test showed mild to moderate obstructive ventilatory defect, no bronchodilator response; Recent chest X-ray performed, results not detailed Plan The plan includes continuing simvastatin at 10 mg to manage cholesterol, aiming for LDL and triglyceride goals. Smoking cessation was emphasized due to its impact on COPD, for which recent PFTs showed restrictive patterns. A follow-up CT scan for lung cancer screening has been advised. GERD will continue to be treated with omeprazole and lifestyle changes. Post-knee arthroplasty rehabilitation via physical therapy will persist. Gastroenterology appointments are set for endoscopic surveillance of Conley's esophagus. All interventions aim at optimizing overall health and disease prevention. Patient was informed and verbally consented to the use of an ambient scribe for clinic note documentation during this visit. Discussion Notes I discussed with the patient the importance of managing elevated LDL levels through simvastatin and lifestyle adjustments. Smoking cessation was emphasized due to its detrimental effects on respiratory health, particularly in light of the obstructive patterns noted in PFTs. Lung cancer screening with a CT scan was advised reiterating its preventive value. For GERD, I recommended continued ome prazole and reviewed dietary modifications. Postoperative progress following knee arthroplasty was reviewed, highlighting the benefits of ongoing physical therapy. I scheduled future endoscopic procedures for Conley's esophagus. I counseled on weight management and cardiovascular risk reduction strategies, highlighting the importance of regular follow-ups and sustaining these lifestyle improvements. Patient Instructions - Take simvastatin 10 mg daily at bedtime - Stop smoking - Follow up with recommended CT scan for lung screening - Continue taking omeprazole as prescribed for GERD - Follow dietary changes and engage in regular exercise - Continue physical therapy as scheduled - Schedule and attend upcoming endoscopy and colonoscopy appointments - Keep all follow-up appointments with specialists - Monitor for any concerning symptoms and seek care if needed Orders: Orders Pneumococcal 20 Immunization Today Z23 - Encounter for immunization
--- OUTSIDE RECORDS SUMMARY | 2025-05-03 11:51 | XMS_ITS ---
Author Organization [facility] Address [address] [place] [id number] Care Team Providers Care Gas Blender Name Role Phone Parish Son MD Primary Care Provider Mj Negrete [phone] REASON FOR VISIT New Insurance Encounters Encounter Location Date Provider Diagnosis [facility] [address] [place] [id number] 01/06/2025 Mj Mendoza Plan Of Treatment No Information Progress Notes * FLORINDA RUSSDOB:1960 (64 yo M)Acc No.[id number]:01/06/2025 Patient:?FLORINDA RUSS :1960???Age:64 Y???Sex:Male Address:[address] [place] [address], [id number] * true * Date:? Generated for Harini parnell/Kt/eTransmitting on:?05/03/2025 11:51 AM EDT
== END 2025-05-03 11:14 | disposition home or self-care (01) ==
LOC: HO.HMCH 10:35
PROVIDERS: PCP Internal Medicine; Visit Provider Internal Medicine
DX: E78.00 Pure hypercholesterolemia, unspecified (principal); J44.9 Chronic obstructive pulmonary disease, unspecified; Z96.651 Presence of right artificial knee joint; R91.8 Other nonspecific abnormal finding of lung field; R73.02 Impaired glucose tolerance (oral); K22.70 Barrett's esophagus without dysplasia; E66.9 Obesity, unspecified; Z23 Encounter for immunization

== ENCOUNTER → 2025-05-03 10:34 | Outpatient (BNVA) | payer MEDICARE, SELFPAY | PROVIDERS: PCP Internal Medicine; Visit Provider Internal Medicine | DX: Z23 Encounter for immunization (principal); J44.9 Chronic obstructive pulmonary disease, unspecified; R91.8 Other nonspecific abnormal finding of lung field; E78.00 Pure hypercholesterolemia, unspecified; R73.02 Impaired glucose tolerance (oral); K22.70 Barrett's esophagus without dysplasia; E66.9 Obesity, unspecified; Z68.36 Body mass index [BMI] 36.0-36.9, adult; Z71.3 Dietary counseling and surveillance; Z96.651 Presence of right artificial knee joint | CPT/HCPCS: 90471; 90677; 99212 ==

== ENCOUNTER 2025-06-16 08:11 | Outpatient (AMB) | payer MEDICARE, SELFPAY ==
--- OUTSIDE RECORDS SUMMARY | 2024-10-07 07:00 | XMS_ITS ---
Author Organization [facility] Address [address] [place] [id number] Care Team Providers Care Dyer And Washer Name Role Phone Po Parish ODELL Primary Care Provider Mj Negrete [phone] REASON FOR VISIT valenzuela's,gerd,screening,hx polyps Medications Medication SIG (Take, Route, Frequency, Duration) Notes Start Date End Date Status Folic Acid 1 MG 1 tablet Orally Once a day for 30 day(s) Active Vitamin B12 1000 MCG 1 tablet Orally Onc e a day for 30 day(s) Active Omeprazole 20 mg TAKE 1 CAPSULE BY [facility] EVERY DAY for 30 Active Atorvastatin Calcium 10 MG 1 tablet Oral ly Once a day for 30 day(s) 12/10/2018 Active Vitamin D 1000 UNIT 1 capsule Orally Onc e a day for 30 day(s) Active Problems Problem Type SNOMED Code ICD Code Onset Dates Problem Status W/U Status Risk Notes Problem Diverticular disease of colon (517181488) Diverticulosis of large intestine without perforation or abscess without bleeding (K57.30) Active confirmed Problem Gastric polyps (K31.7) Active confirmed Encounters Encounter Location Date Provider Diagnosis [facility] [place] [address] [place] [phone] 10/07/2024 Mj Mendoza Colon cancer screeni ng [...] Notes * FLORINDA RUSSDOB:1960 (65 yo M)Acc No.[id number]:10/07/2024 EGD and COL/MAC Patient: Debi FLORINDA JASSO Provider: Aimee Mendoza MD :1960 A ge:64 Y S ex:Male Date:10/07/2024 Address:[address] [place] [address] Pcp:Parish Son MD Subjective: * Chief Complaints: [...] 5385 LESION REMOVAL COLONOSCOPY, Modifiers: 33 , [address] UPPER GI ENDOSCOPY, BIOPSY * * The named appointment provid er may or may not be the originator of this progress note, and it is not deemed complete until electronically signed by the appointment provider. Sign off status: Pending * Provider: Aimee Mendoza MD Date: 1 12/07/2023 Generated for Harini parnell/Kt/Asifitting on: 0 06/16/2025 08:20 AM EDT
--- NOTE | 2025-06-16 08:14 | A.OFFVIS_ITS ---
Vital Signs 06/16/25 08:15 Height 5 ft 9 in Weight 246 lb BMI 36.3 Intake Visit Reasons: OV R TKA w/DR 03/08/25 Intake Note: Samy is a 65 year old male who presents to the office today for follow up after undergoing a right total knee arthroplasty on 03/08/2025. He reports mild to moderate discomfort in his right knee. He denies any fevers or chills. He does take oxycodone at night to help him sleep. Allergies No Known Allergies Allergy (Verified 06/16/25 08:18) Medication List - Last Reconciled 06/16/25 by Danny Jay MD acetaminophen 650 mg (2 x 325 mg) PO Q6H PRN 30 days amoxicillin 2,000 mg (4 x 500 mg) PO ONCE budesonide-formoterol 80-4.5 mcg/actuation (Symbicort) 2 puffs inhalation Q12H cholecalciferol (vitamin D3) 50 mcg PO BEDTIME cyanocobalamin (vitamin B-12) 1,000 mcg PO BEDTIME diclofenac sodium 1% (Voltaren Arthritis Pain) 4 grams topical QID folic acid 1 mg PO BEDTIME Lactobacillus acidophilus (Probiotic) 10,000 mmu cells PO QAM nicotine apply 1-21 mg NICOTINE PATCH daily for 28 days; follow with 1-14 mg PATCH daily for 14 days, then 1-7mg PATCH daily for 14 days transdermal nicotine (polacrilex) (Nicorette) 2 mg buccal Q2H omeprazole 40 mg PO QAM oxycodone 5 mg PO Q24H PRN simvastatin 10 mg PO BEDTIME 90 days walker Folding front wheeled walker [facility] Medical History Arthritis Nicotine dependence, cigarettes, uncomplicated Impaired glucose tolerance Compression fracture of T6 vertebra Pulmonary nodule GERD (gastroesophageal reflux disease) Cervical compression fracture Lumbar disc herniation Obstructive sleep apnea Obesity (BMI 30-39.9) Hypercholesterolemia Vitamin D deficiency Tubular adenoma of colon Conley's esophagus Renal calculi Surgical History History of right knee surgery History of esophagogastroduodenoscopy (EGD) History of colonoscopy History of ventral hernia repair Social History Household Members: Other Household Members Other:: girlfriend Housing: House Are you a primary child care lead teacher to a significant other at home: No Do you presently have visiting nurse or other home services: No Alcohol intake: current Alcohol intake frequency: holidays/special occasions only Comment: once a week 6 drinks Patient Tobacco Use Status: Current everyday Tobacco user Tobacco use type: Cigarette Cigarette Packs Per Day: 1 Cigarettes Per Day: 20.0 Years Smoked: 52 e-Cigarette/Vaping Use: Never Used Second Hand Smoke Exposure: Yes service: No Current occupational status: employed Cognitive needs: No Hearing needs: No Vision needs: Yes Physical Exam Vital Signs: BMI result Body Mass Index 36.3 Const Other: Well-nourished well-developed very friendly male awake alert and oriented x3 in no acute distress Extrem Other: Right knee examination shows that the surgical incision is well healed, no erythema, range of motion from -3 degrees to 110 degrees, his patella tracks well Assessment & Plan Assessment & Plan (1) Right knee pain: Code(s): M25.561 - Pain in right knee Category: Medical Plan Mr. Muniz continues to do well after undergoing right total knee replacement surgery on 03/08/2025. He will continue with his home exercise program. He does know to take antibiotics before dental work. He will contact me prior to his follow-up appointment in 3 months should any questions or concerns arise. Feel free to call me at any time should questions regarding his orthopedic management arise. I spent 22 minutes in reviewing the patient's records and imaging studies, seeing the patient and documenting in the medical record. Medications: Refilled oxycodone Partial Fill upon patient request. 5 mg PO Q24H PRN 18 tabs 0RF pain Coding Level of Care Code Est Pt Level 3 (41841) Complex EM visit Add On G2211 Diagnoses Right knee pain M25.561
[2025-06-16 08:15] VITALS: BMI 36.3
--- OUTSIDE RECORDS SUMMARY | 2025-06-16 08:21 | XMS_ITS ---
Author Name [facility] Organization Unknown Care Team Organization Name Specialty Phone Email Start Date End Da sharmin [facility] Apryl [facility] 12/03/2022 4
== END 2025-06-16 08:31 | disposition home or self-care (01) ==
LOC: HO.HOS 08:12
PROVIDERS: PCP Internal Medicine; Visit Provider Orthopaedic Surgery
DX: M25.561 Pain in right knee (principal)
CPT/HCPCS: 99213; G2211

== ENCOUNTER → 2025-06-16 08:11 | Outpatient (BNVA) | payer MEDICARE, SELFPAY | PROVIDERS: PCP Internal Medicine; Visit Provider Orthopaedic Surgery | DX: M25.551 Pain in right hip (principal); Z96.651 Presence of right artificial knee joint | CPT/HCPCS: 99212 ==

== ENCOUNTER 2025-09-16 08:10 | Outpatient (REF) | payer MEDICARE, SELFPAY ==
--- NOTE | ~2025-09-16 | XR_ITS ---
CLINICAL HISTORY: M25.561 - Pain in right knee 3 view right knee Comparison: DX/SR - XR KNEE 3 VIEWS RIGHT - 03/25/25 12:19 EDT Findings: Right knee arthroplasty is present without evidence of hardware failure or loosening. No acute fracture or dislocation is identified. Small joint effusion is present. IMPRESSION: 1. Right knee arthroplasty without evidence of hardware failure or loosening. 2. Small joint effusion. This document has been electronically signed by: Lance Claudio on 09/17/2025 09:58:10
== END 2025-09-16 08:11 | disposition home or self-care (01) ==
LOC: HO.HOSX 08:10
PROVIDERS: Visit Provider Orthopaedic Surgery
DX: M25.561 Pain in right knee (principal)
CPT/HCPCS: 73562; 99212

== ENCOUNTER 2025-09-16 08:15 | Outpatient (AMB) | payer MEDICARE, SELFPAY ==
--- NOTE | 2025-09-16 08:17 | MHC.OFFVIS ---
Vital Signs 09/16/25 08:26 Height 5 ft 9 in Weight 246 lb BMI 36.3 Intake Visit Reasons: OV-R TKA w/DR 03/08/25-3 Month follow up Intake Note: Samy is a 65 year old man who presents with complaints of mild intermittent discomfort in his right knee after undergoing right total knee replacement surgery on 03/08/2025. He continues with his home stretching program. He denies any fevers or chills. today in office for a follow up of his right knee status post undergoing a right knee total arthroplasty, DOS: 03/08/25. Allergies No Known Allergies Allergy (Verified 09/16/25 08:19) Medication List - Last Reviewed 09/16/25 by STEFANY Dao acetaminophen 650 mg (2 x 325 mg) PO Q6H PRN 30 days amoxicillin 2,000 mg (4 x 500 mg) PO ONCE budesonide-formoterol 80-4.5 mcg/actuation (Symbicort) 2 puffs inhalation Q12H cholecalciferol (vitamin D3) 50 mcg PO BEDTIME cyanocobalamin (vitamin B-12) 1,000 mcg PO BEDTIME diclofenac sodium 1% (Voltaren Arthritis Pain) 4 grams topical QID folic acid 1 mg PO BEDTIME omeprazole 40 mg PO QAM simvastatin 10 mg PO BEDTIME 90 days walker Folding front wheeled walker [facility] Medical History Arthritis Nicotine dependence, cigarettes, uncomplicated Impaired glucose tolerance Compression fracture of T6 vertebra Pulmonary nodule GERD (gastroesophageal reflux disease) Cervical compression fracture Lumbar disc herniation Obstructive sleep apnea Obesity (BMI 30-39.9) Hypercholesterolemia Vitamin D deficiency Tubular adenoma of colon Conley's esophagus Renal calculi Surgical History (Updated 09/16/25 @ 08:33 by STEFANY Dao) Hx of total knee arthroplasty (~03/08/25) History of right knee surgery History of esophagogastroduodenoscopy (EGD) History of colonoscopy History of ventral hernia repair Social History Household Members: Other Household Members Other:: girlfriend Housing: House Are you a primary direct care staffer to a significant other at home: No Do you presently have visiting nurse or other home services: No Alcohol intake: current Alcohol intake frequency: holidays/special occasions only Comment: once a week 6 drinks Patient Tobacco Use Status: Current everyday Tobacco user Tobacco use type: Cigarette Cigarette Packs Per Day: 1 Cigarettes Per Day: 20.0 Years Smoked: 52 e-Cigarette/Vaping Use: Never Used Second Hand Smoke Exposure: Yes service: No Current occupational status: employed Cognitive needs: No Hearing needs: No Vision needs: Yes Physical Exam Vital Signs: BMI result Body Mass Index 36.3 Const Other: Well-nourished well-developed very friendly male awake alert and oriented x3 in no acute distress Extrem Other: Right knee examination shows that the surgical incision is well healed, no erythema, full active extension and flexion to 120 degrees, his patella tracks well Results Reviewed Results Reviewed: X-rays of the patient's right knee show a total knee arthroplasty in good position with no signs of loosening, no acute bony abnormalities Assessment & Plan Assessment & Plan (1) Right knee pain: Code(s): M25.561 - Pain in right knee Category: Medical Plan Mr. Muniz continues to do well after undergoing right total knee replacement surgery on 03/08/2025. He will continue with his physical therapy exercises. He does know to take antibiotics before any dental work. He will contact me prior to his annual follow-up appointment should any questions or concerns arise. Feel free to call me at any time should questions regarding his orthopedic management arise. I spent 21 minutes in reviewing the patient's records and imaging studies, seeing the patient and documenting in the medical record. Orders: Orders XR knee RT 3V Today M25.561 - Pain in right knee Coding Level of Care Code Est Pt Level 3 (08025) Complex EM visit Add On G2211 Diagnoses Right knee pain M25.561
[2025-09-16 08:26] VITALS: BMI 36.3
== END 2025-09-16 08:42 | disposition home or self-care (01) ==
LOC: HO.HOS 08:16
PROVIDERS: PCP Internal Medicine; Visit Provider Orthopaedic Surgery
DX: M25.561 Pain in right knee (principal)
CPT/HCPCS: 99213; G2211

== ENCOUNTER → 2025-09-16 08:19 | Outpatient (BNV) | payer MEDICARE, SELFPAY | PROVIDERS: Visit Provider Radiology Vascular & Interventional Radiology | DX: M25.461 Effusion, right knee (principal); Z96.651 Presence of right artificial knee joint | CPT/HCPCS: 73562 ==